=== PATIENT | male | born 1960 | race Caucasian/White ===

== ENCOUNTER 2023-04-13 12:39 | Outpatient (RCR) | payer OTHER, SELFPAY ==
[2023-04-13 14:21] VITALS: BP 111/70
[2023-04-13 14:38] VITALS: BP 98/61
[2023-04-13 16:38] VITALS: BP 106/60
[2023-04-27 14:47] LABS: % Basophils 0.4 % (0-2); % Eosinophils 0.4 % (0-6); % Immature Granulocytes 0.4 % (0-0.5); % Lymphocytes 8.1 % (20.5-51.1); % Monocytes 33.2 % (1.7-9.3); % Neutrophils 57.5 % (42.2-75.2); Absolute Lymphocytes 0.2 10^3/uL (1.2-3.4); Absolute Monocytes 0.8 10^3/uL (0.1-0.6); Absolute Neutrophils 1.4 10^3/uL (1.4-6.5); Hematocrit 23.5 % (39.0-52.0); Hemoglobin 8.4 g/dL (13.0-18.0); Mean Corp Hgb Conc. 35.7 g/dL (33.0-37.0); Mean Corpuscular Hgb 34.3 pg (27.0-31.0); Mean Corpuscular Volume 95.9 fL (80.0-94.0); Nucleated Red Blood Cells % 0 % (-); Platelet Count 91 10^3/uL (130-400); Red Blood Cell Count 2.45 10^6/uL (4.70-6.10); Red Cell Dist. Width 17.2 % (11.5-14.5); White Blood Cell Count 2.5 10^3/uL (4.8-10.8)
== END 2023-04-29 23:59 | disposition home or self-care (01) ==
LOC: OID 12:39
PROVIDERS: ATTENDING PHYSICIAN Internal Medicine Hematology & Oncology; FAMILY PHYSICIAN Family Medicine
DX: C15.5 Malignant neoplasm of lower third of esophagus (principal)
CPT/HCPCS: 36415; 36430; 80053; 82248; 85025; 86850; 86900; 86901; 86920; P9016

== ENCOUNTER 2023-04-23 16:12 | Emergency (ER) | payer OTHER, SELFPAY ==
[2023-04-23 16:24] VITALS: BMI 20.9
[2023-04-23 16:32] VITALS: BP 121/71
[2023-04-23 16:54] LABS: % Basophils 0.5 % (0-2); % Immature Granulocytes 0.5 % (0-0.5); % Lymphocytes 8.3 % (20.5-51.1); % Monocytes 16.1 % (1.7-9.3); % Neutrophils 73.6 % (42.2-75.2); Absolute Lymphocytes 0.2 10^3/uL (1.2-3.4); Absolute Monocytes 0.3 10^3/uL (0.1-0.6); Absolute Neutrophils 1.4 10^3/uL (1.4-6.5); Hematocrit 21.2 % (39.0-52.0); Hemoglobin 7.7 g/dL (13.0-18.0); Mean Corp Hgb Conc. 36.3 g/dL (33.0-37.0); Mean Corpuscular Hgb 33.8 pg (27.0-31.0); Mean Platelet Volume 9.6 fL (7.4-10.4); Nucleated Red Blood Cells % 0 % (-); Platelet Count 52 10^3/uL (130-400); Red Blood Cell Count 2.28 10^6/uL (4.70-6.10); Red Cell Dist. Width 15.7 % (11.5-14.5)
[2023-04-23 16:55] LABS: White Blood Cell Count 1.9 10^3/uL (4.8-10.8)
[2023-04-23 17:06] LABS: PT 13.4 Sec (11.4-14.6)
[2023-04-23 17:07] LABS: ALT (SGPT) 18 U/L (0-50); AST (SGOT) 23 U/L (17-59); Albumin 3.3 g/dl (3.5-5.0); Alkaline Phosphatase 74 U/L (38-126); Blood Urea Nitrogen 18 mg/dl (9-20); Calcium 9.2 mg/dl (8.4-10.2); Carbon Dioxide 24 mmol/L (22-30); Chloride 101 mmol/L (98-107); Estimated Creatinine Clearance 116 ml/min; Glucose 103 mg/dl (70-99); Potassium 3.5 mmol/L (3.5-5.1); Sodium 134 mmol/L (135-145); Total Bilirubin 0.5 mg/dl (0.2-1.3); Total Protein 6.2 g/dl (6.3-8.2); eGFR > 60.00
--- NOTE | 2023-04-23 17:14 | ED.GENMED ---
History of Present Illness
<Sharon Wasserman PA-C - Last Filed: 04/24/23 14:56>
General
Chief Complaint: Fall
Source: patient
Exam Limitations: none
Time Seen by Provider: 04/23/23 16:26
Nursing documentation reviewed up to this point in time: agreed with
Travel History
Have you had any contact with someone who has COVID-19?: No
Do you have any symptoms of coronavirus? Fever > 100 degrees, chills, cough, shortness of breath, sore throat, loss of taste or smell, muscle aches, or headache?: No
History of Present Illness
History of Present Illness:
This is 63-year-old male with a past medical history of esophageal cancer currently on chemo/radiation, DVT, hypertension who is presenting today with dizziness and head trauma. He describes the dizziness as a room spinning sensation and
presyncopal. He states that today, he felt nauseous and had to go to the bathroom to vomit when he felt dizzy which caused him to trip and hit the back of head on the cupboard. He did not lose consciousness, did not sustain any lacerations. He
does not have any associated shortness of breath, chest pain, leg pain/warmth, neck pain, headache. He states that he received a dose of chemo a few days ago and currently has had nausea, vomiting and dizziness. He states that he normally gets this
with his treatments however this time it has been worse and has persisted for many more days.
Past History
<Sharon Wasserman PA-C - Last Filed: 04/24/23 14:56>
Past History
ED Past Medical History: Cancer (esophageal cancer)
ED Past Surgical History: Orthopedic
Social History
Tobacco: Smoker
Alcohol: None
Drug: None
Personal:
Living: with family
Phy Exam
<Sharon Wasserman PA-C - Last Filed: 04/24/23 14:56>
Physical Exam
Physical Exam:
General: Patient appears ill but is in no acute distress
Skin: Some pallor however warm and dry, no rashes
HEENT: PERRLA, nystagmus. Small area of erythema at the occiput but no ecchymosis, no palpable hematomas.
Cardiac: Regular rate and rhythm, no murmurs
Pulm: Normal respiratory effort, no adventitious lung sounds b/l
Musculoskeletal: Patient seen spontaneously moving cervical spine, no midline tenderness of cervical spine. Patient is at low risk for C-spine injury via [place] C-spine rule.
Neuro: Alert and oriented x 3, cranial nerves II through XII intact, [id number] testing intact, tnlq-bo-[id number] testing intact.
Course
Ashleylt;Sharon Wasserman PA-C - Last Filed: 04/24/23 14:56>
Orders/Labs/Results
Orders:
Orders
04/23/23 16:42
Complete Blood Count/With Diff Urgent
Comprehensive Metabolic Panel Urgent
PTT Urgent
Prothrombin Time Urgent
04/23/23 17:15
CT Head W/o Iv Contrast Urgent
Comment:
Reason For Exam: head trauma on blood thinners
Ondansetron HCl [Zofran] 4 mg PO NOW STA
04/23/23 17:27
0.9% Sodium Chloride 1000 ml [Nss] 1,000 ml IV BOLUS
04/23/23 17:28
COVID-19 Antigen Urgent
Source: Nasal Swab
Influenza A+B Rapid Molecular Urgent
MERARI Source: Nasal Swab
Specimen Description:
04/23/23 19:57
Electrocardiogram (*1) Urgent
Reason for Study: Fatigue / Weakness
EKG- Treatment ONCE
Abnormal Lab Results
04/23/23
16:42
WBC 1.9 L* 10^3/uL
(4.8-10.8)
RBC 2.28 L 10^6/uL
(4.70-6.10)
Hgb 7.7 L g/dL
(13.0-18.0)
Hct 21.2 L %
(39.0-52.0)
MCH 33.8 H pg
(27.0-31.0)
RDW 15.7 H %
(11.5-14.5)
Plt Count 52 L 10^3/uL
(130-400)
Absolute Lymphs (auto) 0.2 L 10^3/uL
(1.2-3.4)
Lymphocytes % 8.3 L %
(20.5-51.1)
Monocytes % 16.1 H %
(1.7-9.3)
Sodium 134 L mmol/L
(135-145)
Creatinine 0.4 L mg/dL
(0.7-1.3)
Glucose 103 H mg/dl
(70-99)
Total Protein 6.2 L g/dl
(6.3-8.2)
Albumin 3.3 L g/dl
(3.5-5.0)
04/23/23 16:42
04/23/23 16:42
Vital Signs
Initial and Last Documented VS:
Initial Vital Signs
Temp Pulse Resp BP Pulse Ox
97.9 F 86 18 121/ 99
04/23/23 16:32 04/23/23 16:32 04/23/23 16:32 04/23/23 16:32 04/23/23 16:32
Last Documented Vital Signs
Temp Pulse Resp BP Pulse Ox
97.9 F 86 18 121/ 99
04/23/23 16:32 04/23/23 16:32 04/23/23 16:32 04/23/23 16:32 04/23/23 17:45
<Dale Fernandes DO - Last Filed: 04/23/23 21:56>
Orders/Labs/Results
Orders:
Orders
04/23/23 16:42
Complete Blood Count/With Diff Urgent
Comprehensive Metabolic Panel Urgent
PTT Urgent
Prothrombin Time Urgent
04/23/23 17:15
CT Head W/o Iv Contrast Urgent
Comment:
Reason For Exam: head trauma on blood thinners
Ondansetron HCl [Zofran] 4 mg PO NOW STA
04/23/23 17:27
0.9% Sodium Chloride 1000 ml [Nss] 1,000 ml IV BOLUS
04/23/23 17:28
COVID-19 Antigen Urgent
Source: Nasal Swab
Influenza A+B Rapid Molecular Urgent
MERARI Source: Nasal Swab
Specimen Description:
04/23/23 19:57
Electrocardiogram (*1) Urgent
Reason for Study: Fatigue / Weakness
EKG- Treatment ONCE
Abnormal Lab Results
04/23/23
16:42
WBC 1.9 L* 10^3/uL
(4.8-10.8)
RBC 2.28 L 10^6/uL
(4.70-6.10)
Hgb 7.7 L g/dL
(13.0-18.0)
Hct 21.2 L %
(39.0-52.0)
MCH 33.8 H pg
(27.0-31.0)
RDW 15.7 H %
(11.5-14.5)
Plt Count 52 L 10^3/uL
(130-400)
Absolute Lymphs (auto) 0.2 L 10^3/uL
(1.2-3.4)
Lymphocytes % 8.3 L %
(20.5-51.1)
Monocytes % 16.1 H %
(1.7-9.3)
Sodium 134 L mmol/L
(135-145)
Creatinine 0.4 L mg/dL
(0.7-1.3)
Glucose 103 H mg/dl
(70-99)
Total Protein 6.2 L g/dl
(6.3-8.2)
Albumin 3.3 L g/dl
(3.5-5.0)
04/23/23 16:42
04/23/23 16:42
Vital Signs
Initial and Last Documented VS:
Initial Vital Signs
Temp Pulse Resp BP Pulse Ox
97.9 F 86 18 121/71 99
04/23/23 16:32 04/23/23 16:32 04/23/23 16:32 04/23/23 16:32 04/23/23 16:32
Last Documented Vital Signs
Temp Pulse Resp BP Pulse Ox
97.9 F 86 18 121/71 99
04/23/23 16:32 04/23/23 16:32 04/23/23 16:32 04/23/23 16:32 04/23/23 17:45
<Sharon Wasserman PA-C - Last Filed: 04/24/23 14:56>
MDM/Problems Addressed
Differential Diagnosis Includes:
Differentials include chemo side effects, radiation side effects, acute dehydration, electrolyte derangement, influenza, COVID
MDM/Problems Addressed:
dizziness
head trauma
Chronic conditions affecting care: HTN, Cancer and Other (anticoagulated on eliquis )
Acute Exacerbation and/or Progression of Chronic Illness: Cancer
<Dale Fernandes DO - Last Filed: 04/23/23 21:56>
MDM/Problems Addressed
MDM/Problems Addressed:
dizziness, head trauma, thrombocytopenia, dehydration, weakness
<Sharon Wasserman PA-C - Last Filed: 04/24/23 14:56>
*Pulse Oximetry
Patient hypoxic: no
Data Reviewed
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
biopsy of esophageal mass in November 2022)
<Dale Fernandes DO - Last Filed: 04/23/23 21:56>
*Radiology
Radiology exam reviewed: preliminary read by ED provider (No obvious intracranial hemorrhage)
*EKG
Interpreted by ED Provider?: Yes
Interpretation: normal
Rate: normal
Rhythm: sinus
QRS Pattern: normal QRS
Ischemia: no ischemia
*Jewel Hole Gauger Interpretation
Rate: normal
Interpretation: normal
Rhythm: sinus
*Critical Care Note
Total Time (30-74mins, 75-104mins- exclusive of procedures): Not Applicable
Data Reviewed
Source: patient
Further Testing Considered But Not Given:
Consider blood cultures but no fever. No clinical suspicion for bacteremia
<Sharon Wasserman PA-C - Last Filed: 04/24/23 14:56>
Patient Management
Escalation/DeEscalation of care consider admission/obs:
This is a 63-year-old male with past medical history of esophageal and lung cancer currently receiving chemotherapy and radiation is presenting to emergency department today with an episode of head injury and dizziness. Patient states that with his
chemo treatments, he usually feels dizzy and nauseous but states that this dizziness has been worsening usually is. Patient was dizzy which caused him to trip and hit his head. CT scan of his head reveals no acute hemorrhage or other acute
abnormalities. His CBC significant for pancytopenia. His CMP is unremarkable. Started him on IV fluids and Zofran upon reevaluation, patient has had no additional episodes of dizziness and feels well. I suspect his symptoms are likely secondary
to his cancer, or chemo therapy/radiation side effects. He is stable for discharge, advised him to follow-up with his primary care provider his oncologist
<Sharon Wasserman PA-C - Last Filed: 04/24/23 14:56>
Update Note
Update Note:
4:45 pm--initially value patient, will start Zofran, fluids, obtain CT of the head
5:20 pm--received update from nursing he reports that patient had an additional episode of room spinning dizziness while here in emergency department
7:50 pm--upon reevaluation, patient reports that he feels well and has had not had any more episodes of dizziness.
ED Attending Note
<Sharon Wasserman PA-C - Last Filed: 04/24/23 14:56>
-
Portions of this chart may have been created with voice recognition software.� Occasional wrong word or��sound alike� substitutions may have occurred due to the inherent limitations of voice recognition software.
<Dale Fernandes DO - Last Filed: 04/23/23 21:56>
ED Attending Note
Patient seen and examined by attending physician: Yes
I performed the substantive portion of visit, reviewed & personally made and approve the management plan that is documented in note by myself or TENNILLE.: Yes
ED Attending Note:
63-year-old male with unfortunate Struve esophageal cancer who recently finished many doses of radiation as well as chemotherapy. His last chemo treatment about 1 week ago. Patient has been just weak and not feeling quite well which has been
similar to past chemo treatments. The patient states today he just felt continued weakness. He got up to go to the bathroom and felt lightheaded. He struck his head on the pocket door. He did fall to his knees but did not strike his head on the
ground. The patient's daughter heard him and felt he did not look well. They decided to bring him in for evaluation. He did call his home care nurse who advised him come for evaluation. Patient was a previous smoker. He denies fevers. He
states that he was not sure if he was getting a 'bug'. Exam: Abdomen soft, G-tube intact. Nonfocal neuroassessment. Assessment plan: IV fluids, check head CT check labs and reassess
Discharge Plan
Departure
Patient Disposition: Home (Routine Discharge)
Date of Disposition: 04/23/23
Time of Disposition: 21:56
Patient with high blood pressure during this ER visit?: No
Condition: Good
Discharge Problem:
Pancytopenia, Fall
Instructions: Head Injury in Adults (DC)
Prescriptions:
No Action
losartan 50 mg Tablet
50 mg PO DAILY
Patient Comments:
Pt holding due to hypotension
Eliquis 5 mg Tablet
5 mg PO BID
prochlorperazine maleate [Compazine] 10 mg Tablet
10 mg PO Q6H PRN (Reason: nausea)
Referrals:
Fredi Young MD [Family Provider] -
Activity Restrictions/Additional Instructions:
Please return to the emergency department should you develop, fevers or chills, chest pain, shortness of breath, abdominal pain, calf pain, or other concerning signs or symptoms.
Please follow up with your oncologist and your primary care provider.
Interventions
Interventions:
*Risk Screen - Suicide Last Done: 04/23/23 16:45
*General Assessment Last Done: 04/23/23 16:34
*Neglect/Abuse Screening Last Done: 04/23/23 16:34
*ED COVID-19 Vaccine History Last Done: 04/23/23 16:32
*Nursing Disposition Last Done: 04/23/23 23:38
ED-Musculoskeletal Assessment Last Done: 04/23/23 20:45
ED- Neurological Assessment Last Done: 04/23/23 16:45
ED-Skin Assessment Last Done: 04/23/23 17:05
Discharge Date and Time
Discharge Date/Time: 04/23/23 23:38
[2023-04-23] MEDS: ZOFRAN 4 MG PO (17:25)
[2023-04-23] MEDS: NSS 1000 IV (17:53)
[2023-04-23 17:54] LABS: COVID-19 Antigen Negative (Negative)
== END 2023-04-23 23:38 | disposition home or self-care (01) ==
LOC: EMR 16:12
PROVIDERS: Physician Assistant; EMERGENCY PHYSICIAN Emergency Medicine; FAMILY PHYSICIAN Family Medicine
DX: D61.818 Other pancytopenia (principal); F17.200 Nicotine dependence, unspecified, uncomplicated; W19.XXXA Unspecified fall, initial encounter; I10 Essential (primary) hypertension; Z79.01 Long term (current) use of anticoagulants
CPT/HCPCS: 99285; 96360; 70450; 80053; 85025; 85610; 85730; 87502; 87811; 93005

== ENCOUNTER 2023-05-01 11:31 | Outpatient (RCR) | payer OTHER, SELFPAY ==
[2023-05-01 09:45] LABS: Hematocrit 22.4 % (39.0-52.0); Hemoglobin 7.8 g/dL (13.0-18.0); Mean Corp Hgb Conc. 34.8 g/dL (33.0-37.0); Mean Corpuscular Hgb 34.5 pg (27.0-31.0); Mean Corpuscular Volume 99.1 fL (80.0-94.0); Mean Platelet Volume 9.8 fL (7.4-10.4); Platelet Count 98 10^3/uL (130-400); Red Blood Cell Count 2.26 10^6/uL (4.70-6.10); Red Cell Dist. Width 18.6 % (11.5-14.5); White Blood Cell Count 2.8 10^3/uL (4.8-10.8)
[2023-05-01 10:38] LABS: Absolute Neutrophils -Man Diff 2.1 10^3/uL (1.4-6.5); Band Neutrophils 3 % (0-3); Lymphocytes 6 % (20-51); Segmented Neutrophils 72 % (42-75)
[2023-05-01 10:39] LABS: Anisocytosis 1+; Eosinophils 1 % (0-6); Hypochromasia Slight; Metamyelocytes 2 % (-); Monocytes 16 % (2-9); Normal RBC Morphology No; Platelets Checked Yes; Polychromasia 1+; Total Cells Counted 100
== END 2023-05-28 23:59 | disposition home or self-care (01) ==
LOC: OID 11:31
PROVIDERS: ATTENDING PHYSICIAN Internal Medicine Hematology & Oncology; FAMILY PHYSICIAN Family Medicine
DX: C15.5 Malignant neoplasm of lower third of esophagus (principal); C34.11 Malignant neoplasm of upper lobe, right bronchus or lung; D75.1 Secondary polycythemia; Z72.0 Tobacco use
CPT/HCPCS: 85025

== ENCOUNTER → 2023-05-04 14:10 | Outpatient (REF) | payer OTHER, SELFPAY ==
[2023-05-04 15:32] LABS: % Basophils 0.2 % (0-2); % Eosinophils 0.9 % (0-6); % Immature Granulocytes 1.6 % (0-0.5); % Lymphocytes 8.7 % (20.5-51.1); % Monocytes 16.5 % (1.7-9.3); % Neutrophils 72.1 % (42.2-75.2); Absolute Immature Granulocytes 0.1 10^3/uL (0-0.05); Absolute Lymphocytes 0.4 10^3/uL (1.2-3.4); Absolute Monocytes 0.7 10^3/uL (0.1-0.6); Absolute Neutrophils 3.2 10^3/uL (1.4-6.5); Hematocrit 22.2 % (39.0-52.0); Hemoglobin 7.9 g/dL (13.0-18.0); Mean Corp Hgb Conc. 35.6 g/dL (33.0-37.0); Mean Corpuscular Hgb 35.3 pg (27.0-31.0); Mean Corpuscular Volume 99.1 fL (80.0-94.0); Mean Platelet Volume 9.9 fL (7.4-10.4); Nucleated Red Blood Cells % 0 % (-); Platelet Count 106 10^3/uL (130-400); Red Blood Cell Count 2.24 10^6/uL (4.70-6.10); Red Cell Dist. Width 19.5 % (11.5-14.5); White Blood Cell Count 4.5 10^3/uL (4.8-10.8)
== END ==
LOC: OIDL 14:10
PROVIDERS: ATTENDING PHYSICIAN Internal Medicine Hematology & Oncology
DX: C15.5 Malignant neoplasm of lower third of esophagus (principal); I82.401 Acute embolism and thrombosis of unspecified deep veins of right lower extremity; D75.1 Secondary polycythemia; D69.6 Thrombocytopenia, unspecified
CPT/HCPCS: 85025

== ENCOUNTER → 2023-05-13 14:07 | Outpatient (REF) | payer OTHER, SELFPAY ==
[2023-05-13 15:03] LABS: % Basophils 0.5 % (0-2); % Eosinophils 1.8 % (0-6); % Immature Granulocytes 0.5 % (0-0.5); % Lymphocytes 14.1 % (20.5-51.1); % Monocytes 15.5 % (1.7-9.3); % Neutrophils 67.6 % (42.2-75.2); Absolute Eosinophils 0.1 10^3/uL (0-0.7); Absolute Lymphocytes 0.6 10^3/uL (1.2-3.4); Absolute Monocytes 0.7 10^3/uL (0.1-0.6); Hemoglobin 8.4 g/dL (13.0-18.0); Mean Corpuscular Hgb 35.9 pg (27.0-31.0); Mean Corpuscular Volume 102.6 fL (80.0-94.0); Mean Platelet Volume 9.6 fL (7.4-10.4); Nucleated Red Blood Cells % 0 % (-); Platelet Count 95 10^3/uL (130-400); Red Blood Cell Count 2.34 10^6/uL (4.70-6.10); Red Cell Dist. Width 20.8 % (11.5-14.5); White Blood Cell Count 4.4 10^3/uL (4.8-10.8)
== END ==
LOC: REG 14:07
PROVIDERS: ATTENDING PHYSICIAN Internal Medicine Hematology & Oncology; FAMILY PHYSICIAN Family Medicine
DX: C15.5 Malignant neoplasm of lower third of esophagus (principal); I82.401 Acute embolism and thrombosis of unspecified deep veins of right lower extremity; D75.1 Secondary polycythemia; D69.6 Thrombocytopenia, unspecified
CPT/HCPCS: 36415; 85025

== ENCOUNTER → 2023-05-14 14:19 | Outpatient (REF) | payer OTHER, SELFPAY | LOC: RAD 14:19 | PROVIDERS: ATTENDING PHYSICIAN Nurse Practitioner Adult Health; FAMILY PHYSICIAN Family Medicine | DX: C15.5 Malignant neoplasm of lower third of esophagus (principal); I82.401 Acute embolism and thrombosis of unspecified deep veins of right lower extremity; D75.1 Secondary polycythemia; D69.6 Thrombocytopenia, unspecified | CPT/HCPCS: 71260; 74177; Q9967 ==

== ENCOUNTER → 2023-07-21 13:41 | Outpatient (REF) | payer OTHER, SELFPAY ==
[2023-07-21 16:15] LABS: % Basophils 0.3 % (0-2); % Immature Granulocytes 0.1 % (0-0.5); % Monocytes 9.7 % (1.7-9.3); % Neutrophils 79.9 % (42.2-75.2); Absolute Eosinophils 0.1 10^3/uL (0-0.7); Absolute Lymphocytes 0.6 10^3/uL (1.2-3.4); Absolute Monocytes 0.7 10^3/uL (0.1-0.6); Absolute Neutrophils 5.4 10^3/uL (1.4-6.5); Hematocrit 35.3 % (39.0-52.0); Hemoglobin 11.8 g/dL (13.0-18.0); Mean Corp Hgb Conc. 33.4 g/dL (33.0-37.0); Mean Corpuscular Hgb 36.5 pg (27.0-31.0); Mean Corpuscular Volume 109.3 fL (80.0-94.0); Mean Platelet Volume 9.6 fL (7.4-10.4); Nucleated Red Blood Cells % 0 % (-); Platelet Count 91 10^3/uL (130-400); Red Blood Cell Count 3.23 10^6/uL (4.70-6.10); Red Cell Dist. Width 13.1 % (11.5-14.5); White Blood Cell Count 6.8 10^3/uL (4.8-10.8)
[2023-07-21 16:32] LABS: ALT (SGPT) 20 U/L (0-50); AST (SGOT) 29 U/L (17-59); Albumin 4.4 g/dl (3.5-5.0); Alkaline Phosphatase 95 U/L (38-126); Blood Urea Nitrogen 21 mg/dl (9-20); Calcium 9.9 mg/dl (8.4-10.2); Carbon Dioxide 26 mmol/L (22-30); Chloride 102 mmol/L (98-107); Glucose 96 mg/dl (70-99); Iron 117 ug/dl (49-181); Potassium 4.1 mmol/L (3.5-5.1); Sodium 136 mmol/L (135-145); Total Bilirubin 0.4 mg/dl (0.2-1.3); Total Protein 7.7 g/dl (6.3-8.2); eGFR > 60.00
[2023-07-21 16:42] LABS: Percent Saturation 35 % (20-50); Total Iron Binding Capacity 334 ug/dl (261-462)
[2023-07-21 17:01] LABS: TSH 1.35 uIU/ml (0.47-4.68)
[2023-07-21 17:36] LABS: Folate 17.8 ng/ml (2.76-20); Vitamin B12 256 pg/ml (239-931)
== END ==
LOC: REG 13:41
PROVIDERS: ATTENDING PHYSICIAN Internal Medicine Hematology & Oncology; FAMILY PHYSICIAN Family Medicine
DX: C15.5 Malignant neoplasm of lower third of esophagus (principal); I82.401 Acute embolism and thrombosis of unspecified deep veins of right lower extremity; D75.1 Secondary polycythemia; D69.6 Thrombocytopenia, unspecified; R53.83 Other fatigue
CPT/HCPCS: 36415; 80053; 82607; 82728; 82746; 83540; 83550; 84443; 85025

== ENCOUNTER 2023-08-14 06:04 | Day surgery (SDC) | payer OTHER, SELFPAY ==
[2023-08-14] VITALS (8 sets, daily range): BP systolic 104–128; BP diastolic 66–85; BMI 21.6
[2023-08-14] MEDS: NORMOSOL-R 1000 IV (12:05)
[2023-08-14 12:11] LABS: INR 0.99; PT 12.9 Sec (11.4-14.6)
[2023-08-14 12:12] LABS: APTT 28.4 Sec (23.4-35.0)
--- NOTE | 2023-08-14 15:04 | VATNOTE ---
Left SQ port flushed with 500 units of heparin and deaccessed
== END 2023-08-14 15:25 | disposition home or self-care (01) ==
LOC: SDS 06:04
PROVIDERS: ATTENDING PHYSICIAN Surgery
DX: N28.89 Other specified disorders of kidney and ureter (principal); Z98.890 Other specified postprocedural states; Z85.01 Personal history of malignant neoplasm of esophagus; Z92.3 Personal history of irradiation; Z92.21 Personal history of antineoplastic chemotherapy
CPT/HCPCS: 52351; 52332; 74420; 76000; 85610; 85730; A4300; C1769; C1894

== ENCOUNTER 2023-08-27 09:48 | Outpatient (RCR) | payer OTHER, SELFPAY | END 2023-08-27 23:59 | disposition home or self-care (01) | LOC: RPT 09:48 | PROVIDERS: ATTENDING PHYSICIAN Internal Medicine Hematology & Oncology; FAMILY PHYSICIAN Family Medicine | DX: C15.9 Malignant neoplasm of esophagus, unspecified (principal); M62.81 Muscle weakness (generalized); R26.81 Unsteadiness on feet; R53.0 Neoplastic (malignant) related fatigue | CPT/HCPCS: 97110; 97112; 97163; 97530; 97535 ==

== ENCOUNTER → 2023-08-31 14:07 | Outpatient (REF) | payer OTHER, SELFPAY | LOC: RAD 14:07 | PROVIDERS: ATTENDING PHYSICIAN Surgery; FAMILY PHYSICIAN Family Medicine | DX: N28.89 Other specified disorders of kidney and ureter (principal) | CPT/HCPCS: 74178; Q9967 ==

== ENCOUNTER → 2023-09-16 07:45 | Outpatient (REF) | payer OTHER, SELFPAY | LOC: PET 07:45 | PROVIDERS: ATTENDING PHYSICIAN Internal Medicine Hematology & Oncology | DX: C15.5 Malignant neoplasm of lower third of esophagus (principal) | CPT/HCPCS: 78815; A9552 ==

== ENCOUNTER 2023-09-17 12:08 | Outpatient (RCR) | payer OTHER, SELFPAY | END 2023-09-17 23:59 | disposition home or self-care (01) | LOC: RPT 12:08 | PROVIDERS: ATTENDING PHYSICIAN Internal Medicine Hematology & Oncology; FAMILY PHYSICIAN Family Medicine | DX: M62.81 Muscle weakness (generalized) (principal); C15.9 Malignant neoplasm of esophagus, unspecified; R26.81 Unsteadiness on feet; R53.0 Neoplastic (malignant) related fatigue | CPT/HCPCS: 97110; 97112; 97530 ==

== ENCOUNTER → 2023-10-06 07:29 | Outpatient (REF) | payer OTHER, SELFPAY | LOC: MRI 07:29 | PROVIDERS: ATTENDING PHYSICIAN Internal Medicine Hematology & Oncology; FAMILY PHYSICIAN Family Medicine | DX: C15.9 Malignant neoplasm of esophagus, unspecified (principal) | CPT/HCPCS: 72157; A9575 ==

== ENCOUNTER → 2023-12-16 07:52 | Outpatient (REF) | payer OTHER, SELFPAY | LOC: PET 07:52 | PROVIDERS: ATTENDING PHYSICIAN Internal Medicine Hematology & Oncology | DX: C15.5 Malignant neoplasm of lower third of esophagus (principal) | CPT/HCPCS: 78815; A9552 ==

== ENCOUNTER 2024-02-04 09:56 | Outpatient (RCR) | payer OTHER, SELFPAY ==
[2024-02-04 10:20] VITALS: BP 118/68
[2024-02-04 10:39] VITALS: BP 118/68
[2024-02-04 11:06] VITALS: BP 110/69
[2024-02-04 12:06] VITALS: BP 128/70
== END 2024-02-27 23:59 | disposition home or self-care (01) ==
LOC: OID 09:56
PROVIDERS: ATTENDING PHYSICIAN Internal Medicine Hematology & Oncology; FAMILY PHYSICIAN Family Medicine
DX: C15.5 Malignant neoplasm of lower third of esophagus (principal); D75.1 Secondary polycythemia; F10.90 Alcohol use, unspecified, uncomplicated; Z72.0 Tobacco use
CPT/HCPCS: 36430; P9073

== ENCOUNTER → 2024-03-01 09:18 | Outpatient (REF) | payer OTHER, SELFPAY ==
[2024-03-01 09:39] VITALS: BP 121/80; BP_SYST 65
[2024-03-01 09:47] LABS: % Basophils 0.2 % (0-2); % Eosinophils 0.5 % (0-6); % Immature Granulocytes 0.7 % (0-0.5); % Lymphocytes 10.4 % (20.5-51.1); % Monocytes 14.7 % (1.7-9.3); % Neutrophils 73.5 % (42.2-75.2); Absolute Lymphocytes 0.4 10^3/uL (1.2-3.4); Absolute Monocytes 0.6 10^3/uL (0.1-0.6); Absolute Neutrophils 3.1 10^3/uL (1.4-6.5); Hematocrit 29.1 % (39.0-52.0); Hemoglobin 9.2 g/dL (13.0-18.0); Mean Corp Hgb Conc. 31.6 g/dL (33.0-37.0); Mean Corpuscular Hgb 34.2 pg (27.0-31.0); Mean Corpuscular Volume 108.2 fL (80.0-94.0); Mean Platelet Volume 8.9 fL (7.4-10.4); Nucleated Red Blood Cells % 0 % (-); Platelet Count 166 10^3/uL (130-400); Red Blood Cell Count 2.69 10^6/uL (4.70-6.10); Red Cell Dist. Width 18.8 % (11.5-14.5); White Blood Cell Count 4.2 10^3/uL (4.8-10.8)
[2024-03-01 09:52] LABS: INR 0.96; PT 13.1 Sec (11.4-14.6)
[2024-03-01] MEDS: NSS (PRESERVATIVE FREE) 0.25 ML IV (10:10)
[2024-03-01] MEDS: ATIVAN 0.5 MG IV (10:11)
[2024-03-01 11:20] VITALS: BP 121/80; BP_SYST 72
[2024-03-01 11:25] VITALS: BP 124/86; BP_SYST 73
[2024-03-01 11:30] VITALS: BP 115/83; BP_SYST 68
== END ==
LOC: RADI 09:18
PROVIDERS: Physician Assistant; ATTENDING PHYSICIAN Nurse Practitioner Acute Care
DX: D75.1 Secondary polycythemia (principal)
CPT/HCPCS: 88305; 88311; 88312; 36415; 38222; 77012; 85025; 85610; 88313

== ENCOUNTER → 2024-03-08 11:26 | Outpatient (REF) | payer OTHER, SELFPAY ==
[2024-03-08 12:33] LABS: % Basophils 0.4 % (0-2); % Eosinophils 0.9 % (0-6); % Immature Granulocytes 0.7 % (0-0.5); % Monocytes 14.6 % (1.7-9.3); % Neutrophils 74.4 % (42.2-75.2); Absolute Eosinophils 0.1 10^3/uL (0-0.7); Absolute Lymphocytes 0.5 10^3/uL (1.2-3.4); Absolute Monocytes 0.8 10^3/uL (0.1-0.6); Absolute Neutrophils 4.2 10^3/uL (1.4-6.5); Hematocrit 28.2 % (39.0-52.0); Hemoglobin 9.5 g/dL (13.0-18.0); Mean Corp Hgb Conc. 33.7 g/dL (33.0-37.0); Mean Corpuscular Hgb 34.8 pg (27.0-31.0); Mean Corpuscular Volume 103.3 fL (80.0-94.0); Mean Platelet Volume 8.8 fL (7.4-10.4); Nucleated Red Blood Cells % 0 % (-); Platelet Count 183 10^3/uL (130-400); Red Blood Cell Count 2.73 10^6/uL (4.70-6.10); White Blood Cell Count 5.7 10^3/uL (4.8-10.8)
== END ==
LOC: REG 11:26
PROVIDERS: ATTENDING PHYSICIAN Internal Medicine Hematology & Oncology; FAMILY PHYSICIAN Family Medicine
DX: C15.5 Malignant neoplasm of lower third of esophagus (principal); I82.401 Acute embolism and thrombosis of unspecified deep veins of right lower extremity; D75.1 Secondary polycythemia; D69.6 Thrombocytopenia, unspecified; R53.83 Other fatigue; D51.9 Vitamin B12 deficiency anemia, unspecified; D61.818 Other pancytopenia
CPT/HCPCS: 36415; 85025

== ENCOUNTER → 2024-03-14 13:39 | Outpatient (REF) | payer OTHER, SELFPAY | LOC: RCS 13:39 | PROVIDERS: ATTENDING PHYSICIAN Internal Medicine Cardiovascular Disease; FAMILY PHYSICIAN Family Medicine | DX: R07.89 Other chest pain (principal); R06.02 Shortness of breath | CPT/HCPCS: 93306 ==

== ENCOUNTER → 2024-04-14 12:32 | Outpatient (REF) | payer OTHER, SELFPAY | LOC: RAD 12:32 | PROVIDERS: ATTENDING PHYSICIAN Nurse Practitioner Family; FAMILY PHYSICIAN Family Medicine | DX: M75.42 Impingement syndrome of left shoulder (principal); M25.512 Pain in left shoulder | CPT/HCPCS: 73030 ==

== ENCOUNTER 2024-05-30 18:27 | Inpatient (IN) | payer OTHER, SELFPAY ==
[2024-05-30] VITALS (10 sets, daily range): BP systolic 123–152; BP diastolic 75–89; BMI 19.1
--- NOTE | 2024-05-30 12:39 | EDRN ---
Karli ROSALES in room w/ ED Resident at this time.
[2024-05-30] MEDS: OMNIPAQUE 100 ML PO (13:04)
[2024-05-30] MEDS: NSS 500 IV (13:25)
[2024-05-30 13:42] LABS: % Basophils 0.3 % (0-2); % Eosinophils 0.5 % (0-6); % Immature Granulocytes 0.5 % (0-0.5); % Lymphocytes 4.6 % (20.5-51.1); % Monocytes 8.8 % (1.7-9.3); % Neutrophils 85.3 % (42.2-75.2); Absolute Lymphocytes 0.4 10^3/uL (1.2-3.4); Absolute Monocytes 0.7 10^3/uL (0.1-0.6); Absolute Neutrophils 6.5 10^3/uL (1.4-6.5); Hematocrit 34.1 % (39.0-52.0); Mean Corp Hgb Conc. 32.3 g/dL (33.0-37.0); Mean Corpuscular Hgb 29.6 pg (27.0-31.0); Mean Corpuscular Volume 91.7 fL (80.0-94.0); Mean Platelet Volume 8.9 fL (7.4-10.4); Nucleated Red Blood Cells % 0 % (-); Platelet Count 151 10^3/uL (130-400); Red Blood Cell Count 3.72 10^6/uL (4.70-6.10); Red Cell Dist. Width 14.9 % (11.5-14.5); White Blood Cell Count 7.7 10^3/uL (4.8-10.8)
[2024-05-30 13:59] LABS: ALT (SGPT) 12 U/L (0-50); AST (SGOT) 17 U/L (17-59); Albumin 3.7 g/dl (3.5-5.0); Alkaline Phosphatase 135 U/L (38-126); Blood Urea Nitrogen 22 mg/dl (9-20); Calcium 9.5 mg/dl (8.4-10.2); Carbon Dioxide 29 mmol/L (22-30); Chloride 97 mmol/L (98-107); Estimated Creatinine Clearance 72 ml/min; Glucose 116 mg/dl (70-99); Lipase 31 U/L (23-300); Sodium 134 mmol/L (135-145); Total Bilirubin 0.6 mg/dl (0.2-1.3); Total Protein 7.5 g/dl (6.3-8.2); eGFR > 60.00
--- NOTE | 2024-05-30 14:09 | EDRN ---
Pt asking for pain medication at this time.
[2024-05-30] MEDS: PERCOCET 5/325 2 TABLET PO (14:47)
--- NOTE | 2024-05-30 14:48 | EDRN ---
Pt medicated for his pain w/ 2 percocet at this time.
--- NOTE | 2024-05-30 15:05 | EDRN ---
Pt only able to tolerate 1.5 cups of oral contrast at this time. emission technician called and informed of this.
--- NOTE | 2024-05-30 16:11 | ED.GENMED ---
History of Present Illness
General
Chief Complaint: Bowel Problem
Source: patient
Exam Limitations: none
Time Seen by Provider: 05/30/24 12:18
History of Present Illness
History of Present Illness:
64yoM with a history of metastatic esophageal cancer presenting for evaluation of constipation. Patient recently completed radiation on his left clavicle at [facility]. He reports issues with constipation over the past several weeks. He had a 'baby
poop' 4 days ago but prior to this has not had a normal bowel movement in several weeks. He was seen at palliative care who recommended magnesium citrate and Dulcolax which did not help. He has also been using fleets enemas without any
improvement. Patient reports pain in his left upper quadrant with early satiety. He is not eating much due to his symptoms and feels dehydrated. Additionally, he reports shortness of breath and feels congested in his lung primarily at nighttime.
He denies any fevers or vomiting. Of note, patient takes opioids for his cancer-related pain.
Past History
Past History
ED Past Medical History: Cancer (esophageal cancer)
ED Past Surgical History: Orthopedic
Social History
Tobacco: Smoker
Alcohol: None
Drug: None
Personal:
Living: with family
Phy Exam
Physical Exam
Physical Exam:
Chronically ill appearing, no acute distress
General Physical Exam
General Presentation: no apparent distress
General Skin: warm and dry
General Habitus: normal
General Mental: alert
ENT Exam
ENT Exam: normocephalic
Pulmonary Exam
Pulmonary Exam: no respiratory distress and decreased breath sounds (L lower lung base)
Gastrointestinal Exam
Gastrointestinal Exam: soft, non distended and other (Mild tenderness in LUQ. Abdomen soft, non-distended. No rebound or guarding. )
Neurological Exam
Neurological Exam: alert
Lelia Coma Scale
Eye Opening: Spontaneous
Verbal Response: Oriented
Motor Response: Obeys Commands
GCS Total Score: 15
Skin Exam
Skin Exam: normal color and warm/dry
Psychiatric Exam
Psychiatric Exam: normal mood/affect
Course
Orders/Labs/Results
Orders:
Orders
05/30/24 Lunch
Regular
At Your Request: Full Participation
Does patient need a safe tray?: No
05/30/24 12:42
0.9% Sodium Chloride 500 ml [Nss] 500 ml IV BOLUS
Iohexol [Omnipaque] See Protocol PO NOW STA
05/30/24 12:43
CT Abd/pel W Iv And Oral Contr Urgent
Comment:
Reason For Exam: LUQ pain, constipation
05/30/24 13:24
Complete Blood Count/With Diff Urgent
Comprehensive Metabolic Panel Urgent
Lipase Urgent
05/30/24 14:12
Oxycodone/Acetaminophen [Percocet 5/325] 2 tablet PO NOW STA
05/30/24 16:07
Urinalysis Reflex To Culture Urgent
CR Chest - 2 Views Urgent
Comment:
Reason For Exam: pleural effusion seen on CXR
05/30/24 16:58
Enema- Treatment ONCE
Type: Milk of Molasses
05/30/24 17:31
Admit/Transfer Patient As Directed
Co-Sign Provider:
Level of Care: Inpatient admission
Assign to:: Medical/Surgical
Physician / Group: Hospitalist
Diagnosis: SOB/Abdominal pain
Reason for Hospitalization: .
Expected length of stay greater than two midnights?: Yes
ELOS- Estimated Length of Stay in days: 3
I certify the patient meets the requirements for IP care: Yes
05/30/24 17:32
PRN Pain Medication Management As Directed
May give lesser potent ordered pain med per pt: Yes
preference::
Protocol:: Medication orders for pain may be administered in a
manner that supports deferring to patient preference
when the pt is:
- Requesting an ordered lesser potent pain medication.
Least to most potent pain medications are defined
as: acetaminophen < NSAID < tramadol < opioids
(morphine, oxycodone, hydromorphone).
- Requesting a lesser dose of the same medication IF
ORDERED.
- Requesting a less intrusive route of administration
if both routes are prescribed by the provider (PO <
IV).
05/30/24 17:33
Code Status As Directed
Resuscitation Status: Full Code
Abnormal Lab Results
05/30/24
13:24
RBC 3.72 L 10^6/uL
(4.70-6.10)
Hgb 11.0 L g/dL
(13.0-18.0)
Hct 34.1 L %
(39.0-52.0)
MCHC 32.3 L g/dL
(33.0-37.0)
RDW 14.9 H %
(11.5-14.5)
Absolute Lymphs (auto) 0.4 L 10^3/uL
(1.2-3.4)
Absolute Monos (auto) 0.7 H 10^3/uL
(0.1-0.6)
Neutrophils % 85.3 H %
(42.2-75.2)
Lymphocytes % 4.6 L %
(20.5-51.1)
Sodium 134 L mmol/L
(135-145)
Chloride 97 L mmol/L
(98-107)
BUN 22 H mg/dl
(9-20)
Glucose 116 H mg/dl
(70-99)
Alkaline Phosphatase 135 H U/L
(38-126)
05/30/24 13:24
05/30/24 13:24
Vital Signs
Initial and Last Documented VS:
Initial Vital Signs
Temp Pulse Resp BP Pulse Ox
98.0 F 104 16 131/89 98
05/30/24 12:01 05/30/24 12:01 05/30/24 12:01 05/30/24 12:01 05/30/24 12:01
Last Documented Vital Signs
Temp Pulse Resp BP Pulse Ox
98.0 F 79 16 135/81 97
05/30/24 12:01 05/30/24 17:00 05/30/24 17:00 05/30/24 17:00 05/30/24 17:00
MDM/Problems Addressed
Differential Diagnosis Includes:
64yoM here with constipation, abd pain, and early satiety. Hx of metastatic esophageal cancer. VSS. He is chronically ill appearing in no distress. There is mild LUQ tenderness without signs of peritonitis. Differential diagnosis includes but is not
limited to: opioid induced constipation, SBO, diverticulitis
Initial ED plan: Check abdominal labs and CT abdomen with IV/PO contrast.
*Critical Care Note
Total Time (30-74mins, 75-104mins- exclusive of procedures): Not Applicable
Update Note
Update Note:
CT shows a new moderate to large L pleural effusion. There is also severe R hydronephrosis with an enhancing mass at the junction of the R renal pelvis and ureter. Patient previously had a ureteral stent placed for similar issues by Dr. Swanson.
Renal function is fortunately normal. Moderate-severe constipation noted and milk of molasses enema ordered. Patient admitted for further management.
ED Attending Note
-
Portions of this chart may have been created with voice recognition software.� Occasional wrong word or��sound alike� substitutions may have occurred due to the inherent limitations of voice recognition software.
Discharge Plan
Departure
Patient Disposition: Admit
Date of Disposition: 05/30/24
Time of Disposition: 16:47
Presentation/result/management discussed w/ accepting MD/DO: Hospitalist
Discharge Problem:
Hydronephrosis of right kidney, Pleural effusion on left, Constipation
Prescriptions:
No Action
tamsulosin [Flomax] 0.4 mg Capsule
0.4 mg PO HS
Theragen Tablet
1 tab PO DAILY
morphine 15 mg Tablet Extended Release
15 mg PO Q12H
oxycodone 10 mg Tablet
10 mg PO Q6H
Eliquis 2.5 mg Tablet
2.5 mg PO BID
bisacodyl [Laxative (bisacodyl)] 10 mg Suppository
10 mg LA DAILYPRN PRN (Reason: constipation)
docusate sodium [Stool Softener] 100 mg Capsule
100 mg PO DAILYPRN PRN (Reason: constipation)
Referrals:
Fredi Young MD [Family Provider] -
Interventions
Interventions:
*Risk Screen - Suicide Last Done: 05/30/24 13:10
*General Assessment Last Done: 05/30/24 13:10
*Neglect/Abuse Screening Last Done: 05/30/24 13:10
ED- Fall Risk Assessment Last Done: 05/30/24 13:11
*ED COVID-19 Vaccine History Last Done: 05/30/24 13:10
RQ-Erjlhw-Lanoptfeae Assessment Last Done: 05/30/24 13:16
Discharge Date and Time
Print Language: LATVIAN
--- NOTE | 2024-05-30 16:56 | HPS.HSE ---
Family Physician
-
Family Physician: Fredi Young
Chief Complaint
-
Constipation for a few days duration with loss of appetite and exertional shortness of breath
History of Present Illness
64 years old male presented from home. Patient was having constipation and had palliative care visit was given magnesium citrate. He took 1 bottle in divided doses with small bowel movements but no relief. Patient reports abdominal discomfort
mostly upper part and preventing him from eating although he feels hungry most of the time. No nausea or vomiting. No fever. He also reported exertional shortness of breath. Denies difficulty passing urine or chest pain.
Medical History
Past Medical History
Past Medical History: Reports Other (Lung cancer, esophageal cancer, hypertension, BPH, history of DVT.)
Past Surgical History: Reports Other (No recent major surgery)
Social History
Tobacco: Non-smoker
Alcohol: None
Drug: None
Personal: Single
Living: Alone
Employment: Disabled
Family History
Family History: Not pertinent
Allergies / Home Medications
Allergies reflects when Allergies were last updated in [facility].
Home Medications with original date entered in [facility]
Allergy/Medication List:
Allergies
Allergy/AdvReac Type Severity Reaction Status Date / Time
No Known Allergies Allergy Verified 05/30/24 12:03
Home Medications
tamsulosin 0.4 mg capsule (Flomax) 0.4 mg PO HS 02/04/24
apixaban 2.5 mg tablet (Eliquis) 2.5 mg PO BID 05/30/24
bisacodyl 10 mg rectal suppository (Laxative (bisacodyl)) 10 mg ND DAILYPRN PRN constipation 05/30/24
docusate sodium 100 mg capsule (Stool Softener) 100 mg PO DAILYPRN PRN constipation 05/30/24
morphine 15 mg tablet,extended release 15 mg PO Q12H 05/30/24
oxycodone 10 mg tablet 10 mg PO Q6H 05/30/24
therapeutic multivitamin 1 tab PO DAILY 05/30/24
Review of Systems
-
History Source: Patient
A 12 point ROS was completed and negative except as noted: Yes
Constitutional: Denies Fever or Chills
EENT: Denies Sore Throat or Runny Nose
Respiratory: Reports Trouble Breathing (Upon exertion); Denies Cough
Cardiac: Denies Chest Pain
Abdomen/GI: Reports Abdominal Pain and Constipated
: Denies Dysuria or Difficulty Voiding
Musculoskeletal: Reports Other (Left clavicular pain); Denies Joint Pain
Skin: Denies Itching
Neurological: Denies Weakness
Endocrine: Denies Temp Intolerance
Hematologic/Lymphatic: Denies Bruising
Psych: Denies Panic Disorder
Physical Exam
Vital Signs
Vital Signs
Temp Pulse Resp BP Pulse Ox
98.0 F 82 16 152/84 98
05/30/24 12:01 05/30/24 15:05 05/30/24 15:05 05/30/24 15:05 05/30/24 15:05
Physical Exam
General: No Apparent Distress and Appears Chronically Ill
HEENT: Anicteric and Moist mucous membranes
Respiratory: Decreased Breath Sounds; No Wheezes
Cardiac: S1/S2 and Regular Rhythm
GI: Soft and Non Distended
Rectal: No Maroon Stools
Genito-urinary: No costovertebral tender
Musculoskeletal: No Cyanosis and No Edema
Skin: No Jaundice
Neuro: AO x 3 and Nonfocal/grossly intact
Psych: Calm and Intact Judgment/Insight
Laboratory Results
-
05/30/24 13:24
05/30/24 13:24
Laboratory Results
Total Bilirubin 0.6 mg/dl (0.2-1.3) 05/30/24 13:24
AST 17 U/L (17-59) 05/30/24 13:24
ALT 12 U/L (0-50) 05/30/24 13:24
Alkaline Phosphatase 135 U/L (38-126) H 05/30/24 13:24
Lipase 31 U/L (23-300) 05/30/24 13:24
Impression/Plan
-
64 years old male presented with constipation and exertional shortness of breath
#Constipation, likely induced by narcotic use.
Patient took small dose magnesium citrate Dulcolax and had small bowel movements.
Abdomen is soft and nondistended. Local tenderness and left upper quadrant mainly. No fever. No leukocytosis.
Will start the patient on IV fluid, hoping good hydration will help with constipation.
Will give patient magnesium citrate and Dulcolax again and monitor.
CAT scan showed moderate to large amount of stool within the colon, suggesting constipation, including stool within the splenic flexure just underneath the left hemidiaphragm.Rectum is distended with air, no signs of sterile coral colitis.
Consult GI.
# Severe right hydronephrosis with enhancing mass at the junction of right renal pelvis and proximal ureter.
Patient reported that last PET scan in March 2024 showed active spot in the pelvis. This could be related to the mass.
No renal insufficiency.
Patient has history of BPH, had history of ureteral stent.
Initial discussion with on-call urologist, no plan for stent insertion as long as kidney function is normal. Okay to continue Eliquis.
Appreciate urology input
# Moderate to large left pleural effusion. This could be related to the ongoing exertional dyspnea.
Will consult IR for thoracentesis. Patient currently is not hypoxic. Does not have fever or leukocytosis. Highly suspicious for malignant effusion
Appreciate pulmonary input.
# History of esophageal cancer/lung cancer with bony metastases.
Patient has oncology team at [facility] and Dr. Cormier. Appreciate oncology input. Pelvic mass seems to be a new finding or progression. Will follow-up with oncology.
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 Left clavicular pain is more significant/getting radiation locally. Recently started on morphine per palliative care, he was on oxycodone before that.
Will do IV pain medicine to better control his pain.
# hyponatremia. Mild. No confusion.
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 Continue with Eliquis for now.
# CODE STATUS, full code
Total time spent to see the patient, examine the patient, review data and lab results, discuss treatment plan with patient, ER doctor, consultants and nursing staff around 75 minutes
--- NOTE | 2024-05-30 16:59 | EDRN ---
Kalri Olson PA in to speak w/ pt and told this RN she is admitting pt.
--- NOTE | 2024-05-30 17:04 | EDRN ---
Dr. Kelley in room w/ pt at this time.
--- NOTE | 2024-05-30 19:00 | EDRN ---
No whole milk in ED. Report called to [facility] in 1 acute care at this time. She said she will administer enema there. Will send molasses and she will order the milk.
[2024-05-30] MEDS: DULCOLAX 10 MG PO (21:51)
[2024-05-30] MEDS: ELIQUIS 2.5 MG PO (21:51)
[2024-05-30] MEDS: FLOMAX 0.4 MG PO (21:51)
[2024-05-30] MEDS: D5/0.9% SODIUM CHLORIDE 1000 IV (21:54)
[2024-05-30] MEDS: MS CONTIN (EXTENDED RELEASE) 15 MG PO (21:55)
--- NOTE | 2024-05-30 22:31 | TRANSFER ---
late note due to patient care.
1950:
Pt arrived from the ED to 1 acute. AXo3 ambulated by self. c/oo acute pain in left shoulder and mild pain in abd r/t admitting dx. Plan of care reviewed, room orientation completed, belongings and call corcoran with in reach.
[2024-05-31 07:10] VITALS: BP 130/74
[2024-05-31] MEDS: MS CONTIN (EXTENDED RELEASE) 15 MG PO ×2 (08:11→19:46)
[2024-05-31 08:54] LABS: Blood Urea Nitrogen 20 mg/dl (9-20); Calcium 8.8 mg/dl (8.4-10.2); Carbon Dioxide 25 mmol/L (22-30); Chloride 97 mmol/L (98-107); Estimated Creatinine Clearance 81 ml/min; Glucose 110 mg/dl (70-99); Potassium 4.2 mmol/L (3.5-5.1); Sodium 133 mmol/L (135-145); eGFR > 60.00
[2024-05-31 09:00] VITALS: BP 124/80; BP_SYST 96
[2024-05-31 09:35] VITALS: BP 120/77
[2024-05-31 10:00] VITALS: BP 133/73
--- NOTE | 2024-05-31 10:00 | PTCARENOTE ---
Received patient from IR at 1000. Patient AAOx3, no c/o pain. Left mid lung with bandaid intact. Call corcoran in reach.
--- NOTE | 2024-05-31 10:19 | CON.GI ---
Addendum entered and electronically signed by Toño Echevarria MD 05/31/24 16:16:
I saw and examined the patient.
The SOCIAL MEDIA DESIGNER or PA's note was reviewed and I agree with the note.
Comment: 64yo male with hx esophageal adenocarcinoma with metastatic disease to lung and bone. Recently rec'd XRT for palliation of bony met pain. He sees Dr Augustin Bruner at [facility] and Dr Cormier with [facility]. He has taken more pain meds and become
more constipated. Presents with abd pain, constipation. CT shows large pleural effusion, s/p tap today. Also mass and jxn R renal pelvis and ureter concerning for obstruction, malignancy. He had colonoscopy in 2022 with multiple large polyps up
to 20mm found but larger polyps not resected since he was on eliquis. Smaller polyps were adenomas. Follow up for resection was put off due to active treatment for his esophageal cancer.
REC:
Start bowel regimen, added miralax BID and senna hs
Likely narcotic induced constipation
Can discuss with Oncology whether of not pursuing resection of his large colon polyps found December 2022 is indicated in the context of his metastatic esophageal cancer
Either way would need optimization of bowel regimen
Original Note:
Consultation
-
Date/Time Consultation Requested: 05/30/241999
Date/Time Consultation Performed: 05/31/24 1015
Requesting Provider: Marlyn Kelley MD
Performing Provider: BRAD Monge, Toño Echevarria MD
Reason for Consultation: constipation
Medical History
Chief Complaint / HPI
Chief Complaint: constipation
History of Present Illness:
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 He has been followed by [facility] and Dr. Cormier locally. Pt was treated initially with carbo/taxol with radiation with peg placement and
consider FLOT therapy but not completed with low counts with prior treatment and showed initial improvement with therapy. Over time he was noted with further mets with 08/2023 PET with uptake in left paratracheal mediastinum. with CT chest noted
left mainstem bronchus nodule with bx poorly differentiated carcinoma and pt went for further radiation and carbo/Taxol. He completed radiation in January but only tolerated 2 chemo treatment and stopped with drop in counts. He also admits to know
pleural effusion (s/p tap 3/4), pelvic mets (noted with severe right pelvicaliceal dilation with obstruction on admission) and recent clavicle mets with increased pain. He completed further radiation for clavicle area but began narcotic pain
regiment for pain and admits to TID dosing but taking more with advised leading to constipation issues. Prior to admission he did see palliative care for pain control and was advised 1/2 bottle mag citrate and Dulcolax with minimal stool and
presents for evaluation.
Pt currently admits to some dysphagia with ? irritation with esophageal CA. He is able to eat soft foods. He also admits to abdominal pain worse with constipation. He did have enema since admission with some improvement and passed larger
amount of liquid stools. He has occasional GERD and decreased appetite but otherwise denies odynophagia, nausea, vomiting, diarrhea, or rectal bleeding. Pt with hx colonoscopy 2022 with multiple polyps not resected. No follow up completed as
noted with PE and need for anticoagulation and metastatic disease. CT a/p with moderate to large pleural effusion, likely malignant pleural effusion, no right effusion, severe right pelvicaliceal dilation, suggest mass at junction of right renal
pelvis and right ureter with concern for neoplastic process and obstruction. GB distention, moderate to large stool in colon suggest constipation, rectum distended with air, no stercoral colitis, no free air. No bony mets. hbg 11 on admission.
Past Medical History
Past Medical History: Cancer (lung CA- adeno CA- unclear if primary vs met, esophageal CA- distal adeno CA), HTN and Other (DVT, BPH, glucose intolerance, tobacco and ETOH abuse )
Social History
Tobacco: Former Smoker (quit 2022 )
Alcohol: Former (quit 2022 )
Drug: Marijuana
Living: Alone
Employment: Disabled
Family History
Family History: Other (sister with multiple cancer-- pt unsure of type)
Allergies / Home Medications
Allergy/AdvReac Type Severity Reaction Status Date / Time
No Known Allergies Allergy Verified 05/30/24 12:03
�Medication �Instructions �Recorded
tamsulosin 0.4 mg capsule (Flomax) 0.4 mg PO HS 02/04/24
apixaban 2.5 mg tablet (Eliquis) 2.5 mg PO BID 05/30/24
bisacodyl 10 mg rectal suppository 10 mg TN DAILYPRN PRN constipation 05/30/24
(Laxative (bisacodyl))
docusate sodium 100 mg capsule 100 mg PO DAILYPRN PRN constipation 05/30/24
(Stool Softener)
morphine 15 mg tablet,extended 15 mg PO Q12H 05/30/24
release
oxycodone 10 mg tablet 10 mg PO Q6H 05/30/24
therapeutic multivitamin 1 tab PO DAILY 05/30/24
Review of Systems
-
History Source: Patient
Constitutional: Reports Weight Loss ( 50 lbs since diagnosis )
EENT: Reports No Symptoms
Respiratory: Reports Trouble Breathing
Cardiac: Reports No Symptoms
Abdomen/GI: Reports Abdominal Pain and Constipated
: Reports No Symptoms
Musculoskeletal: Reports Other (increased pain with clavicle mets )
Neurological: Reports Weakness
Endocrine: Reports No Symptoms
Hematologic/Lymphatic: Reports No Symptoms
Vital Signs
Temp Pulse Resp BP Pulse Ox
97.8 F 93 17 130/74 98
05/31/24 07:10 05/31/24 07:10 05/31/24 07:10 05/31/24 07:10 05/31/24 07:10
Physical Exam
Exam
General: Other (thin appearing but awake and cooperative )
HEENT: Normocephalic and Anicteric
Respiratory: Clear
Cardiac: Regular Rhythm
GI: Soft, Non Distended and Tender (mild diffuse )
Musculoskeletal: No Clubbing and No Cyanosis
Skin: Warm and Dry
Neuro: Awake, Alert and AO x 3
Psych: Calm
Results
WBC 7.7 10^3/uL (4.8-10.8) 05/30/24 13:24
Hgb 11.0 g/dL (13.0-18.0) L 05/30/24 13:24
Hct 34.1 % (39.0-52.0) L 05/30/24 13:24
MCV 91.7 fL (80.0-94.0) 05/30/24 13:24
Plt Count 151 10^3/uL (130-400) 05/30/24 13:24
Absolute Neuts (auto) 6.5 10^3/uL (1.4-6.5) 05/30/24 13:24
Sodium 133 mmol/L (135-145) L 05/31/24 07:03
Potassium 4.2 mmol/L (3.5-5.1) 05/31/24 07:03
Chloride 97 mmol/L (98-107) L 05/31/24 07:03
Carbon Dioxide 25 mmol/L (22-30) 05/31/24 07:03
BUN 20 mg/dl (9-20) 05/31/24 07:03
Creatinine 0.8 mg/dL (0.7-1.3) 05/31/24 07:03
Calcium 8.8 mg/dl (8.4-10.2) 05/31/24 07:03
Total Bilirubin 0.6 mg/dl (0.2-1.3) 05/30/24 13:24
AST 17 U/L (17-59) 05/30/24 13:24
ALT 12 U/L (0-50) 05/30/24 13:24
Alkaline Phosphatase 135 U/L (38-126) H 05/30/24 13:24
Lipase 31 U/L (23-300) 05/30/24 13:24
Diagnostic Image Results:
05/30/24
IMPRESSION: Moderate to large left pleural effusion is present, extending superior to the included field of view. Nodular foci of peripheral enhancement, which very likely represents a malignant pleural effusion.
No significant right pleural effusion.
Severe right pelvicalyceal dilation with suggestion of a heterogeneously enhancing mass at the junction of the right renal pelvis and proximal right ureter. This is likely neoplastic mass resulting in obstruction, with main differential
considerations of metastatic disease and primary urothelial neoplasm.
Distended gallbladder with no secondary signs to suggest acute cholecystitis. No evidence for biliary ductal dilation.
Moderate to large amount of stool within the colon, suggesting constipation. The rectum is distended, mainly with air. No findings to suggest stercoral colitis.
No evidence for free intraperitoneal air.
Bony degenerative changes as described. No convincing evidence for bony metastatic disease within the abdomen or pelvis.
Prior GI Procedures:
EGD/EUS- 11/2022 bx esophageal mass, esophageal adeno CA well differentiated, MMR intact, HER 2 lovwer third esophagus partially obstructing , T3 N0
Colonoscopy: diverticulosis, many 3- 20mm polyps sigmoid, descending, colon and splenic flexure--return to Dr. duran after chemo bx Tubular adenoma
Assessment / Plan
-
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 He has been followed by [facility] and Dr. Cormier locally. Pt was treated initially with carbo/taxol with radiation with peg placement and
consider FLOT therapy but not completed with low counts with prior treatment and showed initial improvement with therapy. Over time he was noted with further mets with 08/2023 PET with uptake in left paratracheal mediastinum. with CT chest noted
left mainstem bronchus nodule with bx poorly differentiated carcinoma and pt went for further radiation and carbo/Taxol. He completed radiation in January but only tolerated 2 chemo treatment and stopped with drop in counts. He also admits to know
pleural effusion (s/p tap /), pelvic mets (noted with severe right pelvicaliceal dilation with obstruction on admission) and recent clavicle mets with increased pain. He completed further radiation for clavicle area but began narcotic pain
regiment for pain and admits to TID dosing but taking more with advised leading to constipation issues. Prior to admission he did see palliative care for pain control and was advised 1/2 bottle mag citrate and Dulcolax with minimal stool and
presents for evaluation. Pt also noted with mild dysphagia, GERD,decreased appetite with wt loss, and hx colon polyp noted 2022 not resected
-constipation
-hx Esophageal/lung CA with mets
-pelvic mets (noted with severe right pelvicaliceal dilation with obstruction on admission
-clavicle mets with recent radiation and increased pain requiring narcotic use
-shortness of breath with concern for moderate to large pleural effusion s/p tap
-decreased appetite/wt loss
-mild dysphagia
-hx colon polyp not resected
-DVT on Eliquis
PLAN:
etiology of constipation related to recent narcotic use but also noted hx pelvic mets and large colon polyps not resected in 2022
pt with some improvement with enema
will add Miralax BID and senna at HS- if not effective consider regiment for narcotic induced constipation
reviewed with urology ok to advance diet as feeling improved with enema
monitor intakes with decreased appetite with treatment of constipation and s/p tap of effusion
await oncology input -- pt is following with palliative care had discussed hospice with oncology but was still proceeding with further treatment at that time
support given
-
-
Thank you for consultation and allowing me to participate in the patient's care. Please call the consumer science teacher GI physician during the after hours with any questions or concerns.
[2024-05-31] MEDS: ELIQUIS 2.5 MG PO ×2 (10:33→19:46)
[2024-05-31] MEDS: DILAUDID 1 MG IV ×2 (10:34→18:41)
[2024-05-31] MEDS: D5/0.9% SODIUM CHLORIDE IV ×2 (10:39→12:22)
--- NOTE | 2024-05-31 10:48 | CM ---
CM following re: discharge planning.
Reviewed pt's chart, met with pt.
Pt is a 64 year old male, admitted with primary dx of Constipation.
Pt reports he lives alone 2SH, 2 steps to enter, has supportive daughter Stephanie, sister lives nearby and another sister lives in [place]. 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 No DME, VN or SNF history. Pt reports he
does not work, on SSD income.
PCP: Fredi Young
Pharmacy: [facility].
D/C plan: home with anticipated no needs. Daughter/sister to transport at discharge.
CM will follow with discharge plan updates as needed.
--- NOTE | 2024-05-31 11:02 | W.PN.HOSP.TC ---
Today's Communication/Plan
-
c/w bowel regimen
consult PT
Assessment / Plan
Assessment / Plan
Physical Exam
General: No Apparent Distress and Appears Chronically Ill
HEENT: Anicteric and Moist mucous membranes
Respiratory: Decreased Breath Sounds; No Wheezes
Cardiac: S1/S2 and Regular Rhythm
GI: Soft and Non Distended
Rectal: No Maroon Stools
Genito-urinary: No costovertebral tender
Musculoskeletal: No Cyanosis and No Edema
Skin: No Jaundice
Neuro: AO x 3 and Nonfocal/grossly intact
Psych: Calm and Intact Judgment/Insight
64 years old male presented with constipation and exertional shortness of breath
#Constipation, likely induced by narcotic use.
Had mild BM, refused magnesium citrate but took Dulcolax
Will try MiraLAX
No fever. No leukocytosis.
Will start the patient on IV fluid, hoping good hydration will help with constipation.
CAT scan showed moderate to large amount of stool within the colon, suggesting constipation, including stool within the splenic flexure just underneath the left hemidiaphragm.Rectum is distended with air, no signs of sterile coral colitis.
Consulted GI.
# Severe right hydronephrosis with enhancing mass at the junction of right renal pelvis and proximal ureter.
Patient reported that last PET scan in March 2024 showed active spot in the pelvis. This could be related to the mass.
No renal insufficiency.
Patient has history of BPH, had history of ureteral stent.
Discussed with urologist Dr Wu, no plan for a procedure.
Appreciate urology input
# Moderate to large left pleural effusion. This could be related to the ongoing exertional dyspnea.
s/p Successful ultrasound-guided thoracentesis, yielding 1100 cc of clear yellow pleural fluid, appreciate IR help. Post procedure chest x ray, no pneumothorax.
Patient currently is not hypoxic. Does not have fever or leukocytosis. Highly suspicious for malignant effusion
Appreciate pulmonary input.
# History of esophageal cancer/lung cancer with bony metastases.
Patient has oncology team at [facility] and Dr. Cormier. Appreciate oncology input. Pelvic mass seems to be a new finding or progression. Will follow-up with oncology.
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 Left clavicular pain is more significant/getting radiation locally. Recently started on morphine per palliative care, he was on oxycodone before that.
c/w IV pain medicine to better control his pain.
# hyponatremia. Mild. No confusion.
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 Continue with Eliquis for now.
# CODE STATUS, full code
Total time spent to see the patient, examine the patient, review data and lab results, discuss treatment plan with patient, and nursing staff around 55 minutes
Anticipated Discharge: 24 - 48 hours
Subjective/Interval History
-
Date of Service: May 31, 2024
Mild abdominal discomfort
No chest pain
Objective Data
-
Labs:
Laboratory Results
05/31/24
07:03
Sodium 133 L
Potassium 4.2
Chloride 97 L
Carbon Dioxide 25
BUN 20
Creatinine 0.8
Glucose 110 H
Calcium 8.8
Vital Signs:
Vital Signs
Temp Pulse Resp BP Pulse Ox
98 F 84 16 133/73 98
05/31/24 10:00 05/31/24 10:00 05/31/24 10:00 05/31/24 10:00 05/31/24 10:00
I&O
05/30/24 05/31/24 06/01/24
06:59 06:59 06:59
Intake Total 480 / 480
Balance 480 / 480
[2024-05-31] MEDS: MIRALAX 17 GRAMS PO ×2 (12:28→19:46)
--- NOTE | 2024-05-31 13:17 | CON.PUL ---
Consultation
Consultation Request
Date/Time Consultation Requested: 05/31/24
Date/Time Consultation Performed: 05/31/24
Performing Provider: Mahamed
Reason for Consultation: SOB
Medical History
-
History of Present Illness:
Patient is a 64-year-old male with previous history of esophageal adenocarcinoma, lung adenocarcinoma (unclear if 2 separate primaries or related disease) status post CarboTaxol concurrent with radiation completed 04/14/2023, right lower extremity
DVT on Eliquis, presenting from home for constipation, abdominal discomfort, decreased PO intake, SOB. Has is notably on palliative care as an outpatient. CXR showing new effusion, suspected to be malignant. Admitted for evaluation.
Past Medical History
Past Medical History: Other (see list below)
Social History
Tobacco: Smoker
Alcohol: Former
Drug: None
Family History
Family History: Reviewed & Not Pertinent
Allergies / Home Medications
Allergies
Allergy/AdvReac Type Severity Reaction Status Date / Time
No Known Allergies Allergy Verified 05/30/24 12:03
Home Medications
�Medication �Instructions �Recorded �Confirmed �Last Taken �Type
tamsulosin 0.4 mg capsule (Flomax) 0.4 mg PO HS 02/04/24 05/30/24 02/03/24 History
apixaban 2.5 mg tablet (Eliquis) 2.5 mg PO BID 05/30/24 05/30/24 Unknown History
bisacodyl 10 mg rectal suppository 10 mg ME DAILYPRN PRN constipation 05/30/24 05/30/24 Unknown History
(Laxative (bisacodyl))
docusate sodium 100 mg capsule 100 mg PO DAILYPRN PRN constipation 05/30/24 05/30/24 Unknown History
(Stool Softener)
morphine 15 mg tablet,extended 15 mg PO Q12H 05/30/24 05/30/24 Unknown History
release
oxycodone 10 mg tablet 10 mg PO Q6H 05/30/24 05/30/24 Unknown History
therapeutic multivitamin 1 tab PO DAILY 05/30/24 05/30/24 Unknown History
Review of Systems
-
History Source: Patient
All other systems: Negative unless noted
Vitals / Labs / Diagnostic Testing
Vital Signs
Temp Pulse Resp BP Pulse Ox
98 F 84 16 133/73 98
05/31/24 10:00 05/31/24 10:00 05/31/24 10:00 05/31/24 10:00 05/31/24 10:00
Lab Data
05/30/24 13:24
05/31/24 07:03
Diagnostic Testing:
Physical Exam
-
HEENT: Normocephalic, Anicteric and Moist Mucous Membranes
Cardiovascular: S1/S2 and Regular Rhythm
Respiratory: Clear and Non-Labored Respirations
GI: Soft, Non Distended and Non Tender
Neurology: Awake, Alert, Oriented and No Motor Deficits
Skin: Warm, Dry and Good Color
General: Comfortable and Other (NAD)
Assessment
-
Patient is a 64-year-old male with previous history of esophageal adenocarcinoma, lung adenocarcinoma (unclear if 2 separate primaries or related disease) status post CarboTaxol concurrent with radiation completed 04/14/2023, right lower extremity
DVT on Eliquis, presenting from home for constipation, abdominal discomfort, decreased PO intake, SOB. Has is notably on palliative care as an outpatient. CXR showing new effusion, suspected to be malignant.
New small L pleural effusion s/p thoracentesis 05/31/24
Acute onset SOB
Back pain
Constipation
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
Metastatic versus esophageal�lung adenocarcinoma primaries
Pulmonary nodules
DVT 12/22/2022
Obstructive uropathy with radiographically abnormal appearing right collecting system
Tobacco use disorder, 30+ pack year smoker
COPD/emphysema, follows with [facility]
PFT 01/06/23- FEV1 2.64L 77%, ratio 67--moderate obstruction
Alcohol use
Polycythemia
Chemo related cytopenias
Diarrhea
Colon polyps
HTN
Plan
No oxygen was needed on admission, currently saturating >90% on RA
Not on O2 at home
Prior history of lung disease is noted including COPD, emphysema
Had been seeing Dr POLLOCK but not in 2 years
Suspect patient has malignant effusion, cyto still pending
CXR/CT obtained indicating new effusion, small in size
Other imaging reviewed
Will repeat CXR in AM to evaluate for recurrence, if not returned can eval as OP again if symptoms return
Constipation noted, bowel regiment
GI consult for poor PO intake
Will add ensure to meals
Prior ECHO results are reviewed indicating normal function
Resume home meds, monitor on telemetry
Smoking history noted
ETOH use noted
Will need outpatient pulmonary evaluation in our office for PFTs and 6MWT
Reviewed with patient
PT/OT eval
Discussed plan of care with patient and family at bedside
We will follow
Diagnostic Data
Chest X-Ray: 05/31/24- 1. Improved left pleural effusion following thoracentesis.
2. No pneumothorax appreciated.
05/30/24- At least moderate left pleural effusion with accompanying left basilar opacification latter of which may represent atelectasis in this patient with known esophageal carcinoma. Left basilar malignancy cannot be excluded. No pneumothorax or
right pleural effusion.
CT Scan:
PET/CT 12/16/23- MEDIASTINUM: Redemonstration of a small focus of mildly intense FDG uptake in the left paratracheal mediastinum along the anterior margin of the descending thoracic aorta and left lateral aspect of the thoracic esophagus (max SUV
6.2; previously 5.4), without discrete associated soft tissue nodule/lymph node in this region. This is favored to represent a focal compressed patulous portion of the esophagus. Redemonstration of mild intraluminal FDG activity within the distal
thoracic esophagus (max SUV 5.2; previously 5.5). No additional/new suspicious FDG-avid lesions.
LUNGS: Mildly FDG avid focus of probable mucoid impaction within an anterior right upper lobe bronchus (series 4, image 93; max SUV 4.2) with mild tiny downstream tree-in-bud nodules in the anteromedial right upper lobe most in keeping with
infectious/inflammatory bronchiolitis, new from prior. Otherwise no suspicious FDG-avid lesions.
Echo: 03/14/24- Normal left ventricular size, wall thickness and systolic function. LV ejection fraction is 60% by Chawla's method of discs. Normal diastolic function. Normal right ventricular size and function. No significant valvular disease.
Estimated pulmonary artery pressure of 31 mmHg assuming a right atrial pressure of 8 mmHg. Compared to prior from December 26, 2021, no significant change.
PFT's:
Reports and relevant images were personally reviewed.
Total time spent on this consultation __75__ minutes which includes review of history, physical exam, medications, laboratory data, personal review of imaging, extensive review of outpatient records, discussion with care team and respiratory therapy.
--- NOTE | 2024-05-31 13:23 | CON.ONC ---
Impression
Impression
Relapse stage III GE junction adenocarcinoma
Narcotic analgesia associated constipation
Plan
Plan
---GI hygiene for narcotic constipation-- when stable on discharge will arrange for follow-up with Dr. Cormier to continue the workup
Patient History
History of Present Illness
Unfortunate 64-year-old white male with a history of relapsed stage III GE junction adenocarcinoma most recently treated with external beam radiation therapy for relapse of bony structures of the left shoulder for which she has had mild to moderate
relief of pain without intervention. He notes having been restaged with CT scans in February 2024 and workup of this lesion for which an abnormality was noted in the pelvis though he is unclear of the details. We do not have access to that CT
scan. He subsequently presents to the emergency room with complaints of progressive abdominal pain for which imaging studies noted left pleural effusion on chest x-ray as well as CT scan of the abdomen for which a nodular peripheral enhancing foci
were noted. There was severe hydroureteronephrosis of the right from a enhancing mass of the right renal pelvis and proximal ureter. There was moderate to large amount of stool in the colon with no evidence of bony metastasis of the abdomen or
pelvis. He does not recall having a biopsy of either the shoulder related mass which apparently is not seen on the chest x-ray nor of the renal lesion. He underwent palliative thoracentesis for diagnostic purposes also earlier today
Past-Medical/Surgical History
Knee arthroscopy Hypertension; history of right lower extremity DVT;
�
�
Patient Medication
�Medication �Instructions �Recorded �Confirmed �Last Taken �Type
tamsulosin 0.4 mg capsule (Flomax) 0.4 mg PO HS 02/04/24 05/30/24 02/03/24 History
apixaban 2.5 mg tablet (Eliquis) 2.5 mg PO BID 05/30/24 05/30/24 Unknown History
bisacodyl 10 mg rectal suppository 10 mg ID DAILYPRN PRN constipation 05/30/24 05/30/24 Unknown History
(Laxative (bisacodyl))
docusate sodium 100 mg capsule 100 mg PO DAILYPRN PRN constipation 05/30/24 05/30/24 Unknown History
(Stool Softener)
morphine 15 mg tablet,extended 15 mg PO Q12H 05/30/24 05/30/24 Unknown History
release
oxycodone 10 mg tablet 10 mg PO Q6H 05/30/24 05/30/24 Unknown History
therapeutic multivitamin 1 tab PO DAILY 05/30/24 05/30/24 Unknown History
Active Medications
Generic Name Dose Route Start Last Admin
Trade Name Freq PRN Reason Stop Dose Admin
Acetaminophen 1,000 mg 05/30/24 19:57
Acetaminophen 500 Mg Tablet PO 06/27/24 19:56
Q6HPRN PRN
mild to mod pain
Apixaban 2.5 mg 05/30/24 20:00 05/31/24 10:33
Apixaban (Eliquis) 2.5 Mg Tablet PO 06/27/24 19:59 2.5 mg
BID JOELLE Administration
Bisacodyl 10 mg 05/30/24 19:57
Bisacodyl 10 Mg Rectal Suppository RECTAL 06/27/24 19:56
DAILYPRN PRN
constipation
Hydromorphone HCl 1 mg 05/30/24 19:57 05/31/24 10:34
Hydromorphone 1 Mg/Ml Carpuject IV 06/13/24 19:56 1 mg
Q3HPRN PRN Administration
Severe pain
Morphine Sulfate 15 mg 05/30/24 20:00 05/31/24 08:11
Morphine 15 Mg Extended Release Tablet PO 06/13/24 19:59 15 mg
Q12 JOELLE Administration
Ondansetron HCl 4 mg 05/30/24 19:57
Ondansetron 4 Mg/2 Ml Vial IV 06/27/24 19:56
Q6HPRN PRN
NAUSEA/VOMITING
Polyethylene Glycol 17 grams 05/31/24 12:00 05/31/24 12:28
Polyethylene Glycol Powder 17 Grams Packet PO 06/28/24 11:59 17 grams
BID JOELLE Administration
Sennosides 17.2 mg 05/31/24 22:00
Sennosides (Senokot) 8.6 Mg Tablet PO 06/28/24 21:59
HS JOELLE
Sodium Chloride 0 flush 05/30/24 21:00
Sodium Chloride 0.9% (Flush) Syringe IV 06/27/24 20:59
PER PROTOCOL JOELLE
Tamsulosin HCl 0.4 mg 05/30/24 22:00 05/30/24 21:51
Tamsulosin 0.4 Mg Capsule PO 06/27/24 21:59 0.4 mg
HS JOELLE Administration
Review of Systems
-
All Other Systems: Reviewed and Negative (Other than unintentional 20 pound weight loss in the last 2 months)
Physical Exam
-
General: Comfortable and Appears Chronically Ill
HEENT: Moist Mucous Membranes
Cardiology: Normal Sinus Rhythm
Pulmonary: Clear
GI: Soft
Musculoskeletal: No Clubbing
Neurology: Non Focal
Skin: Warm
Psych: Calm
Labs
Lab Results
WBC 7.7 10^3/uL (4.8-10.8) 05/30/24 13:24
RBC 3.72 10^6/uL (4.70-6.10) L 05/30/24 13:24
Hgb 11.0 g/dL (13.0-18.0) L 05/30/24 13:24
Hct 34.1 % (39.0-52.0) L 05/30/24 13:24
MCV 91.7 fL (80.0-94.0) 05/30/24 13:24
MCH 29.6 pg (27.0-31.0) 05/30/24 13:24
MCHC 32.3 g/dL (33.0-37.0) L 05/30/24 13:24
RDW 14.9 % (11.5-14.5) H 05/30/24 13:24
Plt Count 151 10^3/uL (130-400) 05/30/24 13:24
MPV 8.9 fL (7.4-10.4) 05/30/24 13:24
Abs Immat Gran (auto) 0.0 10^3/uL (0-0.05) 05/30/24 13:24
Absolute Neuts (auto) 6.5 10^3/uL (1.4-6.5) 05/30/24 13:24
Absolute Lymphs (auto) 0.4 10^3/uL (1.2-3.4) L 05/30/24 13:24
Absolute Monos (auto) 0.7 10^3/uL (0.1-0.6) H 05/30/24 13:24
Absolute Eos (auto) 0.0 10^3/uL (0-0.7) 05/30/24 13:24
Absolute Basos (auto) 0.0 10^3/uL (0-0.2) 05/30/24 13:24
Immature Gran % 0.5 % (0-0.5) 05/30/24 13:24
Neutrophils % 85.3 % (42.2-75.2) H 05/30/24 13:24
Lymphocytes % 4.6 % (20.5-51.1) L 05/30/24 13:24
Monocytes % 8.8 % (1.7-9.3) 05/30/24 13:24
Eosinophils % 0.5 % (0-6) 05/30/24 13:24
Basophils % 0.3 % (0-2) 05/30/24 13:24
Creatinine 0.8 mg/dL (0.7-1.3) 05/31/24 07:03
Vital Signs
Vital Signs
Temp Pulse Resp BP Pulse Ox
98 F 84 16 133/73 98
05/31/24 10:00 05/31/24 10:00 05/31/24 10:00 05/31/24 10:00 05/31/24 10:00
[2024-05-31 15:10] VITALS: BP 123/76
--- NOTE | 2024-05-31 20:08 | W.PN.UPDATE ---
Update Note
Progress Note Update
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 Will d/c Dilaudid and order Oxycodone 10mg.
[2024-05-31] MEDS: FLOMAX 0.4 MG PO (21:29)
[2024-05-31] MEDS: SENOKOT 17.2 MG PO (21:29)
[2024-05-31 23:35] VITALS: BP 120/71
[2024-05-31] MEDS: ROXICODONE 10 MG PO (23:43)
[2024-06-01 00:04] VITALS: BP 120/71
[2024-06-01 07:00] VITALS: BP 96/70
--- NOTE | 2024-06-01 07:05 | W.PN.ONC2 ---
Today's Communication / Plan
-
Await cytology. Appreciate pulmonary assistance. Discharge home if respiratory status stable. Follow-up with Dr. Cormier for ongoing oncologic management.
Impression
Impression
Relapse stage III GE junction adenocarcinoma
Left pleural effusion
Narcotic analgesia associated constipation
Plan
Plan
Status post thoracentesis with cytologic analysis pending.
Current status is that he may have recurrent esophageal cancer versus new lung cancer.
Recurrent esophageal cancer much more likely diagnosis.
Await pleural fluid cytology.
Dr. Cormier to continue the workup post discharge including potentially adding an systemic palliative therapy and possible need for Pleurx type catheter
Subjective/Objective
Chief Complaint
ACS heme-onc progress
Subjective
Patient is feeling relatively okay. Breathing is somewhat better. He underwent thoracentesis yesterday yielding 1100 cc of clear yellow pleural fluid. Analysis including cytology is still pending.
Vital Signs:
Vital Signs
Temp Pulse Resp BP Pulse Ox
98.1 F 91 16 120/71 93
05/31/24 23:35 05/31/24 23:35 05/31/24 23:35 05/31/24 23:35 05/31/24 23:35
Lab Results:
Laboratory Data
WBC 7.7 10^3/uL (4.8-10.8) 05/30/24 13:24
Hgb 11.0 g/dL (13.0-18.0) L 05/30/24 13:24
Plt Count 151 10^3/uL (130-400) 05/30/24 13:24
eGFR > 60.00 05/31/24 07:03
Physical Exam
Cardiology: Normal Sinus Rhythm, S1 and S2
Pulmonary: Other (Decreased left-sided breath sounds)
GI: Soft
Extremities: No C/C/E
--- NOTE | 2024-06-01 07:57 | W.PN.UPDATE ---
Update Note
Progress Note Update
Patient w/ stable chronic right hydronephrosis secondary to obstructing proximal right ureteral mass - unable to definitively r/o UTUC.
H/o esophageal cancer s/p chemotherapy and XRT.
Now with recurrent esophageal cancer vs. new primary lung cancer.
s/p thoracentesis of 1100 cc fluid this admission.
Previously scheduled for CT imaging in winter 2023, patient rescheduled F/U appointment and imaging due to personal reasons and family illness.
No urologic F/U since.
- no immediate plan for percutaneous biopsy (ureteroscopic biopsy not feasible after unsuccessful attempt in 2023) this admission
- F/U w/ [facility] Oncology and Urology as outpatient pending treatment plan for esophageal and/or lung cancer
- pending thoracentesis fluid cytology
--- NOTE | 2024-06-01 08:26 | PN.CDI ---
CDI
- -
CDI:
Physician Documentation Request
Admit Date: 05/30/24 18:27
Dear Doctor Warren,
Patient admitted for constipation.
Please review the following and provide your response in the progress notes.
Clinical Indicators:
Height: 5' 0'
Weight: 132 lbs
BMI: 19.1
3/4 Oncology Consult: 'unintentional 20 pound weight loss in the last 2 months...Appears Chronically Ill'
If possible, please provide an associated diagnosis related to the abnormal BMI, such as:
Cachectic
Underweight
BMI is not significant
Other
BMI < or = to 19.9
Underweight
Weight Loss
Cachectic
Anorexia
Use of terms such as suspected, likely, concern for, or probable (associated with a specific diagnosis that is being evaluated, monitored, or treated as if it exists) are acceptable and can be coded in the inpatient setting, when documented at the
time of discharge.
Thank you,
Leah Tapia RN, BSN
CDI Specialist
Available via [place] text
Please use your independent medical judgment in providing your response.
[2024-06-01] MEDS: ELIQUIS 2.5 MG PO ×2 (08:41→19:52)
[2024-06-01] MEDS: ROXICODONE 10 MG PO ×3 (08:41→22:52)
[2024-06-01] MEDS: MIRALAX 17 GRAMS PO ×2 (08:42→19:52)
[2024-06-01] MEDS: MS CONTIN (EXTENDED RELEASE) 15 MG PO ×2 (08:42→19:52)
--- NOTE | 2024-06-01 12:22 | W.PN.HOSP.TC ---
Addendum entered and electronically signed by Marlyn Kelley MD 06/03/24 12:24:
Underweight
Original Note:
Today's Communication/Plan
-
Bowel regimen
Likely dc in am
Assessment / Plan
Assessment / Plan
Physical Exam
General: No Apparent Distress and Appears Chronically Ill
HEENT: Anicteric and Moist mucous membranes
Respiratory: Decreased Breath Sounds; No Wheezes
Cardiac: S1/S2 and Regular Rhythm
GI: Soft and Non Distended
Rectal: No Maroon Stools
Genito-urinary: No costovertebral tender
Musculoskeletal: No Cyanosis and No Edema
Skin: No Jaundice
Neuro: AO x 3 and Nonfocal/grossly intact
Psych: Calm and Intact Judgment/Insight
64 years old male presented with constipation and exertional shortness of breath
#Constipation, likely induced by narcotic use.
no BM over night
Will c/w MiraLAX & Stimulant ( he wanted Dulcolax). Stopped Senna. d/w GI, ok to use Mg citrate
No fever. No leukocytosis.
# Severe right hydronephrosis with enhancing mass at the junction of right renal pelvis and proximal ureter.
Patient reported that last PET scan in March 2024 showed active spot in the pelvis. This could be related to the mass.
No renal insufficiency.
Patient has history of BPH, had history of ureteral stent.
Discussed with urologist Dr Wu, no plan for a procedure.
Appreciate urology input
# Moderate to large left pleural effusion. This could be related to the ongoing exertional dyspnea.
s/p Successful ultrasound-guided thoracentesis, yielding 1100 cc of clear yellow pleural fluid, appreciate IR help. Post procedure chest x ray, no pneumothorax.
Patient currently is not hypoxic. Does not have fever or leukocytosis. Highly suspicious for malignant effusion
Appreciate pulmonary input.
# History of esophageal cancer/lung cancer with bony metastases.
Patient has oncology team at [facility] and Dr. Cormier. Appreciate oncology input. Pelvic mass seems to be a new finding or progression. Will follow-up with oncology.
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 Left clavicular pain is more significant/getting radiation locally. Recently started on morphine SR in addition to PRN oxycodone. He understands that narcotics are contributing to his
constipation, he will try to cut back if possible. I discussed with him other options as high dose Tylenol/ NSAIDs or gabapentin but he did not want to make changes.
# hyponatremia. Mild. No confusion.
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 Continue with Eliquis for now.
# CODE STATUS, full code
Total time spent to see the patient, examine the patient, review data and lab results, discuss treatment plan with patient, and nursing staff around 55 minutes
Anticipated Discharge: Within 24 hours
Subjective/Interval History
-
Date of Service: June 01, 2024
Reports constipation, no BM and same abdominal discomfort
Still needs the Oxy with morphine for the left clavicle pain
Objective Data
-
Vital Signs:
Vital Signs
Temp Pulse Resp BP Pulse Ox
98.0 F 109 18 96/70 95
06/01/24 07:00 06/01/24 07:00 06/01/24 07:00 06/01/24 07:00 06/01/24 08:00
I&O
05/31/24 06/01/24 06/02/24
06:59 06:59 06:59
Intake Total 480 / 480 720 / 720
Balance 480 / 480 720 / 720
[2024-06-01 12:25] VITALS: BP 103/74; PULSE 101; O2SAT 94
[2024-06-01 12:27] VITALS: BP 103/74; PULSE 103; O2SAT 94
--- NOTE | 2024-06-01 13:00 | W.PN.PUL3 ---
Today's Communication / Plan
-
No changes on CXR, stable
Awaiting final path on effusion
Awaiting BM
SOB, will add proAir PRN to continue at home
Needs pulmonary FU, we will arrange in 1-2 weeks
Otherwise, ok for d/c planning
Assessment
-
Patient is a 64-year-old male with previous history of esophageal adenocarcinoma, lung adenocarcinoma (unclear if 2 separate primaries or related disease) status post CarboTaxol concurrent with radiation completed 04/14/2023, right lower extremity
DVT on Eliquis, presenting from home for constipation, abdominal discomfort, decreased PO intake, SOB. Has is notably on palliative care as an outpatient. CXR showing new effusion, suspected to be malignant.
New small L pleural effusion s/p thoracentesis 05/31/24
Acute onset SOB
Back pain
Constipation
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
Metastatic versus esophageal�lung adenocarcinoma primaries
Pulmonary nodules
DVT 12/22/2022
Obstructive uropathy with radiographically abnormal appearing right collecting system
Tobacco use disorder, 30+ pack year smoker
COPD/emphysema, follows with [facility]
PFT 01/06/23- FEV1 2.64L 77%, ratio 67--moderate obstruction
Alcohol use
Polycythemia
Chemo related cytopenias
Diarrhea
Colon polyps
HTN
Plan
No oxygen was needed on admission, currently saturating >90% on RA
Not on O2 at home
Prior history of lung disease is noted including COPD, emphysema
Had been seeing Dr POLLOCK but not in 2 years
SOB on occasion, we will add proair to use as needed
Will need FU as OP, reviewed with patient for PFTs
Suspect patient has malignant effusion, cyto still pending
CXR/CT obtained indicating new effusion, small in size
Other imaging reviewed
Will repeat CXR in AM to evaluate for recurrence--stable effusions
Constipation noted, bowel regiment
GI consult for poor PO intake
Ensure BID
Prior ECHO results are reviewed indicating normal function
Resume home meds, monitor on telemetry
Smoking history noted
ETOH use noted
Will need outpatient pulmonary evaluation in our office for PFTs and 6MWT
Reviewed with patient
PT/OT eval
Discussed plan of care with patient and family at bedside
Discharge planning per team
Diagnostic Data
Chest X-Ray: 05/31/24- 1. Improved left pleural effusion following thoracentesis.
2. No pneumothorax appreciated.
05/30/24- At least moderate left pleural effusion with accompanying left basilar opacification latter of which may represent atelectasis in this patient with known esophageal carcinoma. Left basilar malignancy cannot be excluded. No pneumothorax or
right pleural effusion.
CT Scan:
PET/CT 12/16/23- MEDIASTINUM: Redemonstration of a small focus of mildly intense FDG uptake in the left paratracheal mediastinum along the anterior margin of the descending thoracic aorta and left lateral aspect of the thoracic esophagus (max SUV
6.2; previously 5.4), without discrete associated soft tissue nodule/lymph node in this region. This is favored to represent a focal compressed patulous portion of the esophagus. Redemonstration of mild intraluminal FDG activity within the distal
thoracic esophagus (max SUV 5.2; previously 5.5). No additional/new suspicious FDG-avid lesions.
LUNGS: Mildly FDG avid focus of probable mucoid impaction within an anterior right upper lobe bronchus (series 4, image 93; max SUV 4.2) with mild tiny downstream tree-in-bud nodules in the anteromedial right upper lobe most in keeping with
infectious/inflammatory bronchiolitis, new from prior. Otherwise no suspicious FDG-avid lesions.
Echo: 03/14/24- Normal left ventricular size, wall thickness and systolic function. LV ejection fraction is 60% by Chawla's method of discs. Normal diastolic function. Normal right ventricular size and function. No significant valvular disease.
Estimated pulmonary artery pressure of 31 mmHg assuming a right atrial pressure of 8 mmHg. Compared to prior from December 26, 2021, no significant change.
PFT's:
Reports and relevant images were personally reviewed.
Total time spent on this encounter __51__ minutes which includes review of history, physical exam, medications, laboratory data, personal review of imaging, extensive review of outpatient records, discussion with care team and respiratory therapy.
Subjective Data
-
Date of Service:
Date of Service: June 01, 2024
Chief Complaint: Pulmonary Follow Up
Subjective:
No new complaints today, still has not had BM
SOB occasionally
Objective Data
Data Reviewed
Vital Signs / I&O / Oxygen:
Vital Signs
Temp Pulse Resp BP Pulse Ox
98.0 F 109 18 96/70 95
06/01/24 07:00 06/01/24 07:00 06/01/24 07:00 06/01/24 07:00 06/01/24 08:00
Intake and Output
05/31/24 06/01/24 06/02/24
06:59 06:59 06:59
Intake Total 480 / 480 720 / 720
Balance 480 / 480 720 / 720
SaO2 95
Physical Exam
General: Comfortable and Other (NAD)
HEENT: Normocephalic and Moist Mucous Membranes
Cardiovascular: S1-S2 and Regular Rhythm
Respiratory: Clear and Non-Labored Respirations
GI: Soft, Non Distended and Non Tender
Neurology: Awake, Alert, Oriented and No Motor Deficits
Skin: Warm, Dry and Good Color
Labs/Micro/Reports
Lab Data
05/30/24 13:24
05/31/24 07:03
Microbiology
05/31/24 09:30 Pleural Fluid Body Fluid Culture - Preliminary
No Growth After 18-24 Hours
05/31/24 09:30 Pleural Fluid Gram Stain - Preliminary
[2024-06-01] MEDS: CITROMA 300 ML PO (13:09)
--- NOTE | 2024-06-01 13:39 | W.PN.GI.CBS2 ---
Today's Communication / Plan
-
No BM yet
Try Mg citrate
Cont Miralx BID
Consider enema, suppository next if no response
I discussed with Dr Gonzalez his large colon polyps from 2022. Defer addressing this to outpt Oncologist to assess in context of overall prognosis and plan
Assessment / Plan
-
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 He has been followed by [facility] and Dr. Cormier locally. Pt was treated initially with carbo/taxol with radiation with peg placement and
consider FLOT therapy but not completed with low counts with prior treatment and showed initial improvement with therapy. Over time he was noted with further mets with 08/2023 PET with uptake in left paratracheal mediastinum. with CT chest noted
left mainstem bronchus nodule with bx poorly differentiated carcinoma and pt went for further radiation and carbo/Taxol. He completed radiation in January but only tolerated 2 chemo treatment and stopped with drop in counts. He also admits to know
pleural effusion (s/p tap /), pelvic mets (noted with severe right pelvicaliceal dilation with obstruction on admission) and recent clavicle mets with increased pain. He completed further radiation for clavicle area but began narcotic pain
regiment for pain and admits to TID dosing but taking more with advised leading to constipation issues. Prior to admission he did see palliative care for pain control and was advised 1/2 bottle mag citrate and Dulcolax with minimal stool and
presents for evaluation. Pt also noted with mild dysphagia, GERD,decreased appetite with wt loss, and hx colon polyp noted 2022 not resected
-constipation
-hx Esophageal/lung CA with mets
-pelvic mets (noted with severe right pelvicaliceal dilation with obstruction on admission
-clavicle mets with recent radiation and increased pain requiring narcotic use
-shortness of breath with concern for moderate to large pleural effusion s/p tap
-decreased appetite/wt loss
-mild dysphagia
-hx colon polyp not resected
-DVT on Eliquis
Subjective
Subjective
Date of Service: June 01, 2024
No BM with miralax BID. Drinking Mg citrate now
Objective
Data Reviewed
Laboratory Data:
Laboratory Results
05/30/24 13:24
05/31/24 07:03
Laboratory Results
Total Bilirubin 0.6 mg/dl (0.2-1.3) 05/30/24 13:24
AST 17 U/L (17-59) 05/30/24 13:24
ALT 12 U/L (0-50) 05/30/24 13:24
Alkaline Phosphatase 135 U/L (38-126) H 05/30/24 13:24
Lipase 31 U/L (23-300) 05/30/24 13:24
Vital Signs and I&O:
Vital Signs
Temp Pulse Resp BP Pulse Ox
98.0 F 109 18 96/70 95
06/01/24 07:00 06/01/24 07:00 06/01/24 07:00 06/01/24 07:00 06/01/24 08:00
I&O
05/31/24 06/01/24 06/02/24
06:59 06:59 06:59
Intake Total 480 / 480 720 / 720
Balance 480 / 480 720 / 720
Physical Exam
Physical Exam
GI: Soft, Non Distended and Tender (minimal)
--- NOTE | 2024-06-01 13:48 | PTOTSP ---
Pt presents to OT at mod I/I level with basic self care, transfers and functional mobility without AD. Skilled OT not indicated at this time.
[2024-06-01 15:00] VITALS: BP 102/69
[2024-06-01] MEDS: DULCOLAX 10 MG PO ×2 (15:30→21:02)
[2024-06-01] MEDS: FLOMAX 0.4 MG PO (21:02)
[2024-06-01 23:12] VITALS: BP 118/71
[2024-06-02 07:00] VITALS: BP 97/57
[2024-06-02] MEDS: MS CONTIN (EXTENDED RELEASE) 15 MG PO (08:52)
[2024-06-02] MEDS: MIRALAX PO ×2 (08:52→12:48)
[2024-06-02] MEDS: ELIQUIS 2.5 MG PO (08:52)
[2024-06-02] MEDS: ROXICODONE 10 MG PO (08:57)
--- NOTE | 2024-06-02 10:13 | CM ---
CM following re: discharge planning.
Reviewed pt's chart, met with pt.
Pt lives alone 2SH, 2 steps to enter, has supportive daughter Stephanie, sister lives nearby and another sister lives in [place]. Pt is independent in all areas [employer], drives. No DME, VN or SNF history. Pt reports he does not work, on SSD income.
PT and OT evaluations noted - pt has no skilled PT/OT needs.
D/C plan: home with no needs. Daughter/sister to transport at discharge.
CM will follow with discharge plan updates as needed.
--- NOTE | 2024-06-02 11:45 | W.PN.HOSP.TC ---
Today's Communication/Plan
-
dc
Assessment / Plan
Assessment / Plan
Physical Exam
General: No Apparent Distress and Appears Chronically Ill
HEENT: Anicteric and Moist mucous membranes
Respiratory: Decreased Breath Sounds; No Wheezes
Cardiac: S1/S2 and Regular Rhythm
GI: Soft and Non Distended
Rectal: No Maroon Stools
Genito-urinary: No costovertebral tender
Musculoskeletal: No Cyanosis and No Edema
Skin: No Jaundice
Neuro: AO x 3 and Nonfocal/grossly intact
Psych: Calm and Intact Judgment/Insight
64 years old male presented with constipation and exertional shortness of breath
#Constipation, y induced by narcotic use.
Multiple BMs over night, he feels better
No abd pain or distension
Status post MiraLAX twice daily, Dulcolax and magnesium citrate. Patient was counseled about the use of laxative at home instructed to use daily MiraLAX and Dulcolax to avoid recurrence of constipation. If no bowel movement, he was advised to
report to his doctors or to the hospital with the risk of high-dose of narcotic can lead to bowel perforation. He and his sister verbalized understanding.
No fever. No leukocytosis.
# Severe right hydronephrosis with enhancing mass at the junction of right renal pelvis and proximal ureter.
Patient reported that last PET scan in March 2024 showed active spot in the pelvis. This could be related to the mass.
No renal insufficiency.
Patient has history of BPH, had history of ureteral stent.
Discussed with urologist Dr Wu, no plan for a procedure.
Appreciate urology input
# Moderate to large left pleural effusion. This could be related to the ongoing exertional dyspnea.
s/p Successful ultrasound-guided thoracentesis, yielding 1100 cc of clear yellow pleural fluid, appreciate IR help. Post procedure chest x ray, no pneumothorax.
Patient currently is not hypoxic. Does not have fever or leukocytosis. Highly suspicious for malignant effusion
Appreciate pulmonary input.
# History of esophageal cancer/lung cancer with bony metastases. Relapse stage III GE junction adenocarcinoma
Patient has oncology team at [facility] and Dr. Cormier. Appreciate oncology input. Pelvic mass seems to be a new finding or progression. Will follow-up with oncology.
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 Left clavicular pain is more significant/getting radiation locally. Recently started on morphine SR in addition to PRN oxycodone. He understands that narcotics are contributing to his
constipation, he will try to cut back if possible. I discussed with him other options as high dose Tylenol/ NSAIDs or gabapentin but he did not want to make changes.
# hyponatremia. Mild. No confusion.
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 Continue with Eliquis for now.
# CODE STATUS, full code
Total discharge time spent to see the patient, examine the patient, review data and lab results, discuss discharge plan with patient, his sister, and nursing staff around 69 minutes
Anticipated Discharge: Today
Subjective/Interval History
-
Date of Service: June 02, 2024
Objective Data
-
Vital Signs:
Vital Signs
Temp Pulse Resp BP Pulse Ox
97.9 F 102 18 97/57 97
06/02/24 07:00 06/02/24 07:00 06/02/24 07:00 06/02/24 07:00 06/02/24 07:00
I&O
06/01/24 06/02/24 06/03/24
06:59 06:59 06:59
Intake Total 720 / 720 960 / 960
Balance 720 / 720 960 / 960
--- NOTE | 2024-06-02 12:18 | W.PN.ONC2 ---
Today's Communication / Plan
-
.
Impression
Impression
Relapse stage III GE junction adenocarcinoma
Left pleural effusion
Narcotic analgesia associated constipation
Plan
Plan
Status post thoracentesis with cytologic analysis pending.
Current status is that he may have recurrent esophageal cancer versus new lung cancer.
Recurrent esophageal cancer much more likely diagnosis.
Await pleural fluid cytology.
Dr. Cormier to continue the workup post discharge including potentially adding an systemic palliative therapy and possible need for Pleurx type catheter
Subjective/Objective
Subjective
no new complaints
eager for dc
encouraged use of IS
Vital Signs:
Vital Signs
Temp Pulse Resp BP Pulse Ox
97.9 F 102 18 97/57 97
06/02/24 07:00 06/02/24 07:00 06/02/24 07:00 06/02/24 07:00 06/02/24 07:00
Lab Results:
Laboratory Data
WBC 7.7 10^3/uL (4.8-10.8) 05/30/24 13:24
Hgb 11.0 g/dL (13.0-18.0) L 05/30/24 13:24
Plt Count 151 10^3/uL (130-400) 05/30/24 13:24
eGFR > 60.00 05/31/24 07:03
--- NOTE | 2024-06-02 12:38 | W.PN.GI.CBS2 ---
Today's Communication / Plan
-
Moving bowels after Miralax BID and Mg citrate
Continue miralax BID and use Mg citrate prn
Will sign off. Please call back if needed
F/U OP with Dr Cormier to discuss esophageal CA treatment and whether or not removal colon polyps is necessary in context of overall treatment plan
Assessment / Plan
-
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 He has been followed by [facility] and Dr. Cormier locally. Pt was treated initially with carbo/taxol with radiation with peg placement and
consider FLOT therapy but not completed with low counts with prior treatment and showed initial improvement with therapy. Over time he was noted with further mets with 08/2023 PET with uptake in left paratracheal mediastinum. with CT chest noted
left mainstem bronchus nodule with bx poorly differentiated carcinoma and pt went for further radiation and carbo/Taxol. He completed radiation in January but only tolerated 2 chemo treatment and stopped with drop in counts. He also admits to know
pleural effusion (s/p tap 05/31), pelvic mets (noted with severe right pelvicaliceal dilation with obstruction on admission) and recent clavicle mets with increased pain. He completed further radiation for clavicle area but began narcotic pain
regiment for pain and admits to TID dosing but taking more with advised leading to constipation issues. Prior to admission he did see palliative care for pain control and was advised 1/2 bottle mag citrate and Dulcolax with minimal stool and
presents for evaluation. Pt also noted with mild dysphagia, GERD,decreased appetite with wt loss, and hx colon polyp noted 2022 not resected
Impression:
Metastatic esophageal CA
constipation
Pleural effusion
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
Large colon polyps 01/19, not removed
-constipation
-hx Esophageal/lung CA with mets
-pelvic mets (noted with severe right pelvicaliceal dilation with obstruction on admission
-clavicle mets with recent radiation and increased pain requiring narcotic use
-shortness of breath with concern for moderate to large pleural effusion s/p tap
-decreased appetite/wt loss
-mild dysphagia
-hx colon polyp not resected
-DVT on Eliquis
Subjective
Subjective
Date of Service: June 02, 2024
Had 4 loose BMs overnight
Objective
Data Reviewed
Laboratory Data:
Laboratory Results
05/30/24 13:24
05/31/24 07:03
Laboratory Results
Total Bilirubin 0.6 mg/dl (0.2-1.3) 05/30/24 13:24
AST 17 U/L (17-59) 05/30/24 13:24
ALT 12 U/L (0-50) 05/30/24 13:24
Alkaline Phosphatase 135 U/L (38-126) H 05/30/24 13:24
Lipase 31 U/L (23-300) 05/30/24 13:24
Vital Signs and I&O:
Vital Signs
Temp Pulse Resp BP Pulse Ox
97.9 F 102 18 97/57 97
06/02/24 07:00 06/02/24 07:00 06/02/24 07:00 06/02/24 07:00 06/02/24 07:00
I&O
06/01/24 06/02/24 06/03/24
06:59 06:59 06:59
Intake Total 720 / 720 960 / 960
Balance 720 / 720 960 / 960
Physical Exam
Physical Exam
GI: Soft, Non Distended and Non Tender
[2024-06-02 13:30] VITALS: BP 110/71
--- NOTE | 2024-06-02 14:26 | W.DCSUMMARY ---
Discharge Summary
Discharge Data
Date of Admission: 05/30/24
Date of Discharge: 06/02/24
-
Pending Results: No
Hospital Course
64 years old male presented with constipation. Patient also reported exertional shortness of breath. Imaging studies of the chest showed moderate to large left pleural effusion. Scan of the abdomen and pelvis showed large amount of stool in the
transverse colon and splenic flexure. Patient was evaluated by gastroenterology. He was started on laxative regimen including MiraLAX, Dulcolax and magnesium citrate. Patient had multiple bowel movements with improvement in his symptoms. He had
left thoracentesis, cytology pending. Gram stain of the pleural fluid was negative. Patient did not have fever or leukocytosis. Patient has history of stage III gastroesophageal junction adenocarcinoma, relapsing stage. He was also found to have
enhancing mass at the junction of right renal pelvis and proximal ureter With severe right hydronephrosis. Urologist evaluated the patient and did not recommend an urgent procedure. Patient was followed by oncologist, recommendation to follow in
outpatient setting for treatment options. Patient was seen by pulmonary doctor. Patient did not have hypoxia. Patient received his pain medication for chronic cancer pain with opioid dependency. Patient was able to tolerate diet. He remained
hemodynamically stable and was discharged home in a stable condition. Patient was able to ambulate independently without assistance. Discharge instructions including bowel regimen/laxative use were discussed with the patient and his sister at time
of discharge.
Discharge Plan
-
Patient Disposition: Home (Routine Discharge)
Discharge Diagnosis/Procedures: Constipation, opioid induced. Take MiraLAX daily, Dulcolax 10 mg daily in the evening. If no bowel movement in 3 days, take Dulcolax 10 mg twice daily. If still no bowel movement, discuss with your doctor
Right hydronephrosis with enhancing mass at the junction of the right renal pelvis and proximal ureter
Moderate to large left pleural effusion status postthoracentesis
Cancer pain
Condition: Good
Diet: As tolerated
Referrals:
Ahmet Mittal MD [Active] - in one to two weeks (PFTs)
Hector,Fredi L., MD [Family Provider] -
Prescriptions:
New
polyethylene glycol 3350 17 gram Powder In Packet
17 g PO DAILY Qty: 100 0RF
bisacodyl 5 mg Tablet,Delayed Release (Dr/Ec)
10 mg PO HS Qty: 60 0RF
Continued
tamsulosin [Flomax] 0.4 mg Capsule
0.4 mg PO HS
therapeutic multivitamin Tablet
1 tab PO DAILY
morphine 15 mg Tablet Extended Release
15 mg PO Q12H
oxycodone 10 mg Tablet
10 mg PO Q6H
Eliquis 2.5 mg Tablet
2.5 mg PO BID
Discontinued
bisacodyl [Laxative (bisacodyl)] 10 mg Suppository
10 mg GA DAILYPRN PRN (Reason: constipation)
docusate sodium [Stool Softener] 100 mg Capsule
100 mg PO DAILYPRN PRN (Reason: constipation)
Discharge Orders:
Discharge Patient (As Directed); Ordered 06/02/24
Ordered By: Marlyn Kelley
Discharge Date and Time
Discharge Date/Time: 06/02/24 14:02
Print Language: GREEK
== END 2024-06-02 14:02 | disposition home or self-care (01) | DRG 375 ==
LOC: 1 ACUTE 18:27
PROVIDERS: Physician Assistant; Radiology Vascular & Interventional Radiology; ADMITTING PHYSICIAN Internal Medicine; CONSULT PHYSICIAN Internal Medicine; CONSULT PHYSICIAN Internal Medicine Gastroenterology; EMERGENCY PHYSICIAN Emergency Medicine; FAMILY PHYSICIAN Family Medicine; OTHER PHYSICIAN Internal Medicine Hematology & Oncology
PROC: 0W9B3ZX Drainage of Left Pleural Cavity, Percutaneous Approach, Diagnostic (ICD-10-PCS; 2024-05-31)
DX: C16.0 Malignant neoplasm of cardia (principal); C79.51 Secondary malignant neoplasm of bone; E87.1 Hypo-osmolality and hyponatremia; J91.0 Malignant pleural effusion; N13.30 Unspecified hydronephrosis; Z68.1 Body mass index [BMI] 19.9 or less, adult; K59.03 Drug induced constipation; R19.00 Intra-abdominal and pelvic swelling, mass and lump, unspecified site; T40.2X5A Adverse effect of other opioids, initial encounter; G89.3 Neoplasm related pain (acute) (chronic); R63.6 Underweight; Z85.01 Personal history of malignant neoplasm of esophagus; Z85.118 Personal history of other malignant neoplasm of bronchus and lung; Z86.718 Personal history of other venous thrombosis and embolism
CPT/HCPCS: 88305; 32555; 71045; 71046; 74177; 80048; 80053; 83690; 85025; 87015; 87070; 87205; 88112; 96360; 97161; 97165; 99285; Q9967

== ENCOUNTER → 2024-06-06 12:26 | Outpatient (REF) | payer OTHER, SELFPAY ==
[2024-06-06 12:45] VITALS: BP 147/90; BP_SYST 83
== END ==
LOC: RADI 12:26
PROVIDERS: ATTENDING PHYSICIAN Nurse Practitioner Primary Care; FAMILY PHYSICIAN Family Medicine
DX: J90 Pleural effusion, not elsewhere classified (principal)
CPT/HCPCS: 32555; 71045

== ENCOUNTER 2024-06-15 23:17 | Observation (INO) | payer OTHER, SELFPAY ==
[2024-06-15] VITALS (9 sets, daily range): BP systolic 121–165; BP diastolic 69–99; BMI 17.0
[2024-06-15 15:48] LABS: % Basophils 0.2 % (0-2); % Eosinophils 0.8 % (0-6); % Immature Granulocytes 0.6 % (0-0.5); % Lymphocytes 3.5 % (20.5-51.1); % Monocytes 7.4 % (1.7-9.3); % Neutrophils 87.5 % (42.2-75.2); Absolute Eosinophils 0.1 10^3/uL (0-0.7); Absolute Immature Granulocytes 0.1 10^3/uL (0-0.05); Absolute Lymphocytes 0.4 10^3/uL (1.2-3.4); Absolute Monocytes 0.8 10^3/uL (0.1-0.6); Absolute Neutrophils 9.6 10^3/uL (1.4-6.5); Hematocrit 34.8 % (39.0-52.0); Mean Corp Hgb Conc. 31.6 g/dL (33.0-37.0); Mean Corpuscular Hgb 27.9 pg (27.0-31.0); Mean Corpuscular Volume 88.3 fL (80.0-94.0); Mean Platelet Volume 9.2 fL (7.4-10.4); Nucleated Red Blood Cells % 0 % (-); Platelet Count 202 10^3/uL (130-400); Red Blood Cell Count 3.94 10^6/uL (4.70-6.10); Red Cell Dist. Width 15.6 % (11.5-14.5)
[2024-06-15 16:01] LABS: ALT (SGPT) 24 U/L (0-50); AST (SGOT) 27 U/L (17-59); Albumin 3.8 g/dl (3.5-5.0); Alkaline Phosphatase 197 U/L (38-126); Blood Urea Nitrogen 30 mg/dl (9-20); Calcium 10.1 mg/dl (8.4-10.2); Carbon Dioxide 30 mmol/L (22-30); Chloride 98 mmol/L (98-107); Glucose 141 mg/dl (70-99); Lipase 50 U/L (23-300); Potassium 5.7 mmol/L (3.5-5.1); Sodium 138 mmol/L (135-145); Total Bilirubin 0.7 mg/dl (0.2-1.3); Total Protein 8.7 g/dl (6.3-8.2); eGFR > 60.00
--- NOTE | 2024-06-15 17:29 | ED.GENMED ---
History of Present Illness
<Cate Tillman PA-C - Last Filed: 06/15/24 22:12>
General
Chief Complaint: Abdominal Symptoms
Source: patient
Exam Limitations: none
Time Seen by Provider: 06/15/24 17:09
Nursing documentation reviewed up to this point in time: agreed with
History of Present Illness
History of Present Illness:
64-year-old male with a history of relapsed stage III GE junction adenocarcinoma most recently treated with external beam radiation therapy for relapse of the bony structures of the left shoulder on opiates for chronic pain who presents for
constipation and abdominal pain and vomiting. Patient was here on 3-3 to 3-6 for constipation. At that time he was found to have large stool in the colon with no evidence of bony mets in the abdomen or pelvis. He also had a pleural effusion which
required thoracentesis. Patient was managed with enemas, MiraLAX, Dulcolax, and then ultimately magnesium citrate and he was able to have bowel movements and tolerated diet before leaving. Patient says he was placed on a regimen of Dulcolax and
MiraLAX upon discharge. Patient says despite using these meds he stopped moving his bowels about a week ago. He did ultimately try magnesium citrate last night but he vomited and since then has not really had much to eat or drink. He has pain at
the top of his abdomen and ongoing chronic exertional dyspnea which has not changed. He is not having any fever, chills, chest pressure, rectal pressure, bloody stools.
Past History
<Cate Tillman PA-C - Last Filed: 06/15/24 22:12>
Past History
ED Past Medical History: Cancer (esophageal cancer)
ED Past Surgical History: Orthopedic
Social History
Tobacco: Smoker
Alcohol: None
Drug: None
Personal:
Living: with family
Phy Exam
<Cate Tillman PA-C - Last Filed: 06/15/24 22:12>
Physical Exam
Physical Exam:
GENERAL: Alert , very thin
EYE: pupils equal and reactive
NECK: Supple
ENT: o/p clr, dry mouth.
CARDIAC: Regular rate and rhythm .
LUNGS: Clear breath sounds bilaterally, no acute respiratory distress, no wheezes/rales/rhonchi
ABDOMEN: Soft, mild distension, tenderness epigastric region; no r/g, no cvat, normal bowel sounds
NEUROLOGICAL: Alert and oriented, no focal neuro deficits
SKIN: Warm and dry, skin intact.
MUSCULOSKELETAL: No edema, well perfused. neg sophia's sign
PSYCH: Normal and appropriate interaction.
Course
<Cate Tillman PA-C - Last Filed: 06/15/24 22:12>
Orders/Labs/Results
Orders:
Orders
06/15/24 15:36
Complete Blood Count/With Diff Urgent
Comprehensive Metabolic Panel Urgent
Lipase Urgent
06/15/24 17:16
Electrocardiogram (*1) Urgent
Reason for Study: Other
Other Reason for Exam: hyperkalemia
EKG- Treatment ONCE
06/15/24 17:26
CT Abd/pel W Iv And Oral Contr Urgent
Comment:
Reason For Exam: abd pain, vomiting, constipation; cancer
0.9% Sodium Chloride 500 ml [Nss] 500 ml IV BOLUS
Iohexol [Omnipaque] See Protocol PO NOW STA
CR Chest - 2 Views Urgent
Comment:
Reason For Exam: recurrent malignant effusion, sob
06/15/24 18:05
Sodium Zirconium Cyclosilicate [Lokelma] 10 gram PO NOW STA
06/15/24 19:06
Morphine Sulfate 4 mg IV NOW STA
Ondansetron Injectable [Zofran] 4 mg IV NOW STA
06/15/24 21:52
0.9% Sodium Chloride 500 ml [Nss] 500 ml IV BOLUS
06/15/24 21:56
Troponin I Urgent
Abnormal Lab Results
06/15/24
15:36
WBC 11.0 H 10^3/uL
(4.8-10.8)
RBC 3.94 L 10^6/uL
(4.70-6.10)
Hgb 11.0 L g/dL
(13.0-18.0)
Hct 34.8 L %
(39.0-52.0)
MCHC 31.6 L g/dL
(33.0-37.0)
RDW 15.6 H %
(11.5-14.5)
Abs Immat Gran (auto) 0.1 H 10^3/uL
(0-0.05)
Absolute Neuts (auto) 9.6 H 10^3/uL
(1.4-6.5)
Absolute Lymphs (auto) 0.4 L 10^3/uL
(1.2-3.4)
Absolute Monos (auto) 0.8 H 10^3/uL
(0.1-0.6)
Immature Gran % 0.6 H %
(0-0.5)
Neutrophils % 87.5 H %
(42.2-75.2)
Lymphocytes % 3.5 L %
(20.5-51.1)
Potassium 5.7 H mmol/L
(3.5-5.1)
BUN 30 H mg/dl
(9-20)
Glucose 141 H mg/dl
(70-99)
Alkaline Phosphatase 197 H U/L
(38-126)
Total Protein 8.7 H g/dl
(6.3-8.2)
06/15/24 15:36
06/15/24 15:36
Vital Signs
Initial and Last Documented VS:
Initial Vital Signs
Temp Pulse Resp BP Pulse Ox
36.9 C 97 18 121/84 99
06/15/24 15:21 06/15/24 15:21 06/15/24 15:21 06/15/24 15:21 06/15/24 15:21
Last Documented Vital Signs
Temp Pulse Resp BP Pulse Ox
36.9 C 88 22 149/90 95
06/15/24 15:21 06/15/24 22:00 06/15/24 22:00 06/15/24 22:00 06/15/24 21:45
<Shahbaz Marin MD - Last Filed: 06/15/24 22:26>
Orders/Labs/Results
Orders:
Orders
06/15/24 15:36
Complete Blood Count/With Diff Urgent
Comprehensive Metabolic Panel Urgent
Lipase Urgent
06/15/24 17:16
Electrocardiogram (*1) Urgent
Reason for Study: Other
Other Reason for Exam: hyperkalemia
EKG- Treatment ONCE
06/15/24 17:26
CT Abd/pel W Iv And Oral Contr Urgent
Comment:
Reason For Exam: abd pain, vomiting, constipation; cancer
0.9% Sodium Chloride 500 ml [Nss] 500 ml IV BOLUS
Iohexol [Omnipaque] See Protocol PO NOW STA
CR Chest - 2 Views Urgent
Comment:
Reason For Exam: recurrent malignant effusion, sob
06/15/24 18:05
Sodium Zirconium Cyclosilicate [Lokelma] 10 gram PO NOW STA
06/15/24 19:06
Morphine Sulfate 4 mg IV NOW STA
Ondansetron Injectable [Zofran] 4 mg IV NOW STA
06/15/24 21:52
0.9% Sodium Chloride 500 ml [Nss] 500 ml IV BOLUS
06/15/24 21:56
Troponin I Urgent
Abnormal Lab Results
06/15/24
15:36
WBC 11.0 H 10^3/uL
(4.8-10.8)
RBC 3.94 L 10^6/uL
(4.70-6.10)
Hgb 11.0 L g/dL
(13.0-18.0)
Hct 34.8 L %
(39.0-52.0)
MCHC 31.6 L g/dL
(33.0-37.0)
RDW 15.6 H %
(11.5-14.5)
Abs Immat Gran (auto) 0.1 H 10^3/uL
(0-0.05)
Absolute Neuts (auto) 9.6 H 10^3/uL
(1.4-6.5)
Absolute Lymphs (auto) 0.4 L 10^3/uL
(1.2-3.4)
Absolute Monos (auto) 0.8 H 10^3/uL
(0.1-0.6)
Immature Gran % 0.6 H %
(0-0.5)
Neutrophils % 87.5 H %
(42.2-75.2)
Lymphocytes % 3.5 L %
(20.5-51.1)
Potassium 5.7 H mmol/L
(3.5-5.1)
BUN 30 H mg/dl
(9-20)
Glucose 141 H mg/dl
(70-99)
Alkaline Phosphatase 197 H U/L
(38-126)
Total Protein 8.7 H g/dl
(6.3-8.2)
06/15/24 15:36
06/15/24 15:36
Vital Signs
Initial and Last Documented VS:
Initial Vital Signs
Temp Pulse Resp BP Pulse Ox
36.9 C 97 18 121/84 99
06/15/24 15:21 03/19/25 15:21 06/15/24 15:21 06/15/24 15:21 06/15/24 15:21
Last Documented Vital Signs
Temp Pulse Resp BP Pulse Ox
36.9 C 88 22 149/90 95
06/15/24 15:21 06/15/24 22:00 06/15/24 22:00 06/15/24 22:00 06/15/24 21:45
<Cate Tillman PA-C - Last Filed: 06/15/24 22:12>
MDM/Problems Addressed
Differential Diagnosis Includes:
CONSTIPATION, DEHYDRATION, VOMITING,
MDM/Problems Addressed:
64 y/o M with h/o esophageal adenocarcinoma, mets to bone and lung
just here 3 weeks ago for opiate induced consptiaiton and belly pain
pt was given bowel regimen and ultimately moved bowels
went home on doculax and miralax and has been using it
no BM in 1 week
dec po intake
then last night vomited mag citrate he tried to drink
didn't really eat or drink much today
has had some exertional dyspena which has been ongoing with the pleural effusion he had, this is not new
no fever/chils
mild cough
on exam pt is thin, dry mouth, slightly distedned abdoemn with tenderness epigastric region
ekg showed some mild t wave peaking and his k is 5.7
BUN elevated more than usual
tp does not feel comfortable going home, he is weak, dehydrated
d/w ed attending who agree
ivf
<Cate Tillman PA-C - Last Filed: 06/15/24 22:12>
*Critical Care Note
Total Time (30-74mins, 75-104mins- exclusive of procedures): Not Applicable
ED Attending Note
<Cate Tillman PA-C - Last Filed: 06/15/24 22:12>
-
Portions of this chart may have been created with voice recognition software.� Occasional wrong word or��sound alike� substitutions may have occurred due to the inherent limitations of voice recognition software.
<Shahbaz Marin MD - Last Filed: 06/15/24 22:26>
ED Attending Note
Patient seen and examined by attending physician: Yes
ED Attending Note:
I have seen and evaluated the patient with a [id number] encounter. I have spoken to the advance practicer provider and involved in the medical history, the physical exam, medical decision making.
Evaluation and management service: agree unless noted differently below.
Results interpretation: agree unless noted differently below.
Focused HPI: 64-year-old male with past medical history as noted presents to the ER for constipation and abdominal pain, weakness. Was admitted 2 weeks ago for constipation, discharged on bowel regiment. Has been compliant with this but says he
has not had a bowel movement in the past week. Poor appetite not eating and drinking well. Feels very weak and believes he is dehydrated. Having nausea no vomiting. Increasing abdominal pain which prompted ER visit.
Physical exam: Awake alert chronically ill-appearing. Vital signs normal. Abdomen soft, mildly tympanic and distended, diffuse mild tenderness. No peritoneal signs. No masses.
Medical Decision Makin-year-old male presents with constipation, abdominal discomfort and weakness. Vitals and exam as above. Labs showed mild leukocytosis, CMP concerning for dehydration with elevated BUN to creatinine ratio and mild
hyperkalemia. Treatment summary Lokelma and fluids. CT abdomen pelvis shows constipation but no obstruction. Suspect constipation primary cause for his abdominal discomfort likely in the setting of dehydration. Admit for fluids, trend labs,
bowel regimen.
Discharge Plan
Departure
Patient Disposition: Admit
Date of Disposition: 06/15/24
Time of Disposition: 22:05
Admit to: Telemetry
Presentation/result/management discussed w/ accepting MD/DO: Hospitalist
Condition: Fair
Covid-19: Not Applicable
Discharge Problem:
Dehydration, Constipation, Vomiting, Hyperkalemia
Prescriptions:
No Action
tamsulosin [Flomax] 0.4 mg Capsule
0.4 mg PO HS
therapeutic multivitamin Tablet
1 tab PO DAILY
oxycodone 10 mg Tablet
10 mg PO Q6H
Eliquis 2.5 mg Tablet
2.5 mg PO BID
polyethylene glycol 3350 17 gram Powder In Packet
17 g PO DAILY Qty: 100 0RF
bisacodyl 5 mg Tablet,Delayed Release (Dr/Ec)
10 mg PO HS Qty: 60 0RF
morphine 30 mg Tablet Extended Release
30 mg PO Q12H
Referrals:
Fredi Young MD [Family Provider] -
Interventions
Interventions:
*Risk Screen - Suicide Last Done: 06/15/24 15:21
*General Assessment Last Done: 06/15/24 15:21
*Neglect/Abuse Screening Last Done: 06/15/24 15:21
*ED- Fall Risk Assessment Last Done: 06/15/24 15:21
*ED COVID-19 Vaccine History Last Done: 06/15/24 15:21
TE-Duzkaj-Mwunjlbwia Assessment Last Done: 06/15/24 18:22
Discharge Date and Time
Print Language: FRISIAN
[2024-06-15] MEDS: OMNIPAQUE 50 ML PO (17:55)
[2024-06-15] MEDS: NSS 500 IV ×2 (18:03→21:55)
[2024-06-15] MEDS: LOKELMA 10 GRAM PO (18:37)
[2024-06-15] MEDS: ZOFRAN 4 MG IV (19:08)
[2024-06-15] MEDS: MORPHINE SULFATE 4 MG IV (19:08)
--- NOTE | 2024-06-15 22:20 | HPS.HSE ---
Family Physician
-
Family Physician: Fredi Young
Chief Complaint
-
epgastric pain
History of Present Illness
64-year-old male with a history of relapsed stage III GE junction adenocarcinoma most recently treated with external beam radiation therapy for relapse of the bony structures of the left shoulder on opiates for chronic pain who presents for
constipation and abdominal pain and vomiting. he has not had bowel movement for more than a week.he took mag citrate, which made him vomit. last night he vomited twice. he is having epigastric abdominal pain. denied fever, chills, chest pain. he
stated sob. denied dysuria or hematuria.
Patient was here on 3-3 to 3-6 for constipation. At that time he was found to have large stool in the colon with no evidence of bony mets in the abdomen or pelvis. He also had a pleural effusion which required thoracentesis. Patient was managed
with enemas, MiraLAX, Dulcolax, and then ultimately magnesium citrate and he was able to have bowel movements and tolerated diet before leaving. Patient says he was placed on a regimen of Dulcolax and MiraLAX upon discharge. Patient says despite
using these meds he stopped moving his bowels about a week ago.
CT with Large amount of stool within the colon, mainly from the right colon through the distal descending colon, compatible with constipation. No convincing evidence for small bowel obstruction. There is no free intraperitoneal air.
admitting for further management.
Medical History
Past Medical History
Past Medical History: Reports Other
Additional Past Medical History:
Pulmonary nodules
Globules
Esophageal cancer
Colon polyp
Hypertension
BPH
Past Surgical History: Reports None and Other (Exploratory of stomach)
Social History
Tobacco: Former Smoker
Alcohol: None
Drug: None
Family History
Family History: Not pertinent
Allergies / Home Medications
Allergies reflects when Allergies were last updated in [facility].
Home Medications with original date entered in [facility]
Allergy/Medication List:
Allergies
Allergy/AdvReac Type Severity Reaction Status Date / Time
No Known Allergies Allergy Verified 06/15/24 15:23
Home Medications
tamsulosin 0.4 mg capsule (Flomax) 0.4 mg PO HS 02/04/24
apixaban 2.5 mg tablet (Eliquis) 2.5 mg PO BID 05/30/24
oxycodone 10 mg tablet 10 mg PO Q6H 05/30/24
therapeutic multivitamin 1 tab PO DAILY 05/30/24
bisacodyl 5 mg tablet,delayed release 10 mg (2 x 5 mg) PO HS #60 tabs 06/02/24
polyethylene glycol 3350 17 gram oral powder packet 17 g PO DAILY #100 ea 06/02/24
morphine 30 mg tablet,extended release 30 mg PO Q12H 06/15/24
Review of Systems
-
Constitutional: Reports No Symptoms
EENT: Reports No Symptoms
Respiratory: Reports No Symptoms
Cardiac: Reports No Symptoms
Abdomen/GI: Reports Abdominal Pain, Nausea, Vomiting and Constipated
: Reports No Symptoms
Musculoskeletal: Reports No Symptoms
Skin: Reports No Symptoms
Neurological: Reports No Symptoms
Endocrine: Reports No Symptoms
Hematologic/Lymphatic: Reports No Symptoms
Psych: Reports No Symptoms
Physical Exam
Vital Signs
Vital Signs
Temp Pulse Resp BP Pulse Ox
98.5 F 88 22 149/90 95
06/15/24 15:21 06/15/24 22:00 06/15/24 22:00 06/15/24 22:00 06/15/24 21:45
Physical Exam
General: Well Developed, Well Nourished and No Apparent Distress
HEENT: NormoCephalic, Moist mucous membranes and Atraumatic
Respiratory: Clear
Cardiac: S1/S2 and Regular Rhythm; No Murmur or Rub
GI: Soft, Non Tender, Non Distended and Normal Bowel Sounds; No Organomegaly
Rectal: Deferred by Provider
Musculoskeletal: No Clubbing, No Cyanosis and No Edema
Skin: No Rash
Neuro: AO x 3 and Nonfocal/grossly intact
Psych: Calm
Laboratory Results
-
06/15/24 15:36
06/15/24 15:36
Laboratory Results
Total Bilirubin 0.7 mg/dl (0.2-1.3) 06/15/24 15:36
AST 27 U/L (17-59) 06/15/24 15:36
ALT 24 U/L (0-50) 06/15/24 15:36
Alkaline Phosphatase 197 U/L (38-126) H 06/15/24 15:36
Lipase 50 U/L (23-300) 06/15/24 15:36
Data Reviewed
-
CT Scan: Report Reviewed by me
Lab Data: Labs Reviewed by me
Impression/Plan
-
# History of esophageal adenocarcinoma mets to bone/plan
-supposed to get chemo two days ago, but couldn't as he was not feeling well
-follow[facility].
-Morphine and Oxy continued
# Opioid-induced constipation/nausea vomiting associate with abdominal pain
-No bowel movement for 1 week
-Repeat CT shows constipation, no fecal impaction no obstruction
-senna, Colace, miralax
-prn stool softeners
-lactulose added
-clear liquid diet
-GI consult
# Hyperkalemia
-Lokelma in ER
# Leukocytosis likely stress reaction
-WBCs 11.9
-Patient is afebrile-continue to monitor
# Anemia of chronic disease
-Hemoglobin is 11.0
-No active bleeding
-Continue to monitor
# BPH Flomax continue
-
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 Continue with Eliquis for now.
# CODE STATUS, DNR
[2024-06-15 22:31] LABS: Troponin I < 0.012 ng/ml
--- NOTE | 2024-06-15 23:17 | W.PN.UPDATE ---
Update Note
Progress Note Update
Patient seen and condition with [employer] INVESTIGATOR. I agree with the findings and physical. I concur with the assessment and plan.
This Is a 64-year-old with past medical history significant for esophageal adenocarcinoma stage III with relapse with mets to the bone status post recent total radiation to the left shoulder, mets to lungs, on chronic opioids with recurrent
constipation. Patient presents to the emergency department today with constipation and vomiting. Patient was admitted to the hospital and discharged on June 03 for same symptoms. Was found to have constipation involving large stool burden to the
right colon from the flexure to distal descending colon. No obstruction noted. He also has a ureteral mass. Patient was diagnosed with recurrent cancer and plan was to start outpatient chemotherapy which he is started. Was started on bowel
regimen and patient did have bowel movements while in the hospital. He was discharged on a bowel regimen. Patient reported that his last bowel movement was about 1 week ago. He tried mag citrate last night which resulted in vomiting. Still has
not had a bowel movement so he came to the emergency department. He reports abdominal pain. Denies fevers or chills. Reports that he is passing gas.
In the emergency department he was afebrile, blood pressure was 150/90 with a pulse of 86 and oxygen saturation 95%. Troponin was negative. Lipase was negative. CBC was unremarkable. Electrolytes notable for a potassium of 5.7 but otherwise
notable for a bicarb of 30 and a BUN of 30. Creatinine 0.9. Glucose was normal. Chest x-ray shows trace pleural effusion (status post recent diagnostic thoracentesis).
CT of the abdomen and pelvis shows small effusion, no obstruction but large stool burden from the right colon to the descending right colon distally. There is gas in the rectum. The right ureter has a obstructing mass similar to prior.
Assessment and plan
Recurrent constipation with large stool burden secondary to opioid use for chronic cancer related pain. No obstruction on imaging.
- admit to med/surg observation
- trial of bowel regimen with lactulose q 6 hours until bm or x 4, then stop
- did not want to try mag citrate, so MOM bid for now, hold for diarrhea
- miralax daily
- suppository prn
- due to chronic pain will need to continue his morphine and prn oxycodone despite opioid associated constipation
- antiemetics
- clear liquids, ADAT
- GI consultation
DVT PPX - h/o DVT, on apixaban 2.5 bid ppx
Code status - DNR
[2024-06-16] MEDS: MS CONTIN (EXTENDED RELEASE) 30 MG PO ×3 (00:17→19:53)
[2024-06-16] MEDS: DUPHALAC/CHRONULAC 20 GRAMS PO ×4 (00:17→17:58)
[2024-06-16] MEDS: SENOKOT 8.6 MG PO ×2 (00:17→08:16)
[2024-06-16] MEDS: ROXICODONE 10 MG PO ×5 (00:18→23:06)
[2024-06-16] MEDS: NSS 1000 IV (02:15)
--- NOTE | 2024-06-16 06:24 | PTCARENOTE ---
Patient received from ED via stretcher and ambulated to bed. He was oriented to room and surroundings. See nursing assessment for physical findings. IVF per order. Patient with large soft BM this am.
--- NOTE | 2024-06-16 06:55 | CON.GI ---
Addendum entered and electronically signed by Santana Gonzalez MD 06/16/24 11:37:
Patient seen and examined, agree with nurse practitioner note. Patient is a 64-year-old male with past medical history as noted with metastatic esophageal cancer. He is admitted again with increasing constipation and abdominal pain. His CT scan
showed large amount of stool, mostly on the right, without much stool in the rectum or distal sigmoid. Overnight he did have a large bowel movement and is overall feeling better, though still having his usual chronic pain. He has been tolerating
p.o. okay, overall able to maintain. On exam now he has some mild distention and tenderness though he feels is improved, no rebound.
1. Constipation: Likely multifactorial, with opioid use, decreased oral intake. He has had a good evacuation overnight and is overall improved, with benign exam now. We discussed increasing MiraLAX to twice daily or 3 times daily, can titrate to
effect. If still not improving could consider Movantik or other medicines for opioid-induced constipation as an outpatient, though usually do well titrating MiraLAX
2. Dysphagia: Secondary to esophageal malignancy. Overall he has been able to maintain and doing okay with his soft diet and supplementation. He had considered esophageal stent in the past though had deferred and is overall doing okay with
dietary modifications.
We will sign off for now, please call back with any further questions.
Original Note:
Consultation
-
Date/Time Consultation Requested: 06/15/24 1840
Date/Time Consultation Performed: 06/16/24 0830
Requesting Provider: BRAD Pollock
Performing Provider: BRAD Monge, Owen Gonzalez MD
Reason for Consultation: constipation
Medical History
Chief Complaint / HPI
Chief Complaint: constipation
History of Present Illness:
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 He has been followed by [facility] and Dr. Cormier locally. Pt was treated initially with carbo/taxol with
radiation with peg placement and consider FLOT therapy but not completed with low counts with prior treatment and showed initial improvement with therapy. Over time he was noted with further mets with 09/17/23 PET with uptake in left paratracheal
mediastinum. with CT chest noted left mainstem bronchus nodule with bx poorly differentiated carcinoma and pt went for further radiation and carbo/Taxol. He completed radiation in January but only tolerated 2 chemo treatment and stopped with drop
in counts. He also admits to know pleural effusion (s/p tap 3/4 c/w mets from esophagus), pelvic mets (noted with severe right pelvicaliceal dilation with obstruction on [address]) and recent clavicle mets with increased pain s/p radiation.
He had recent admission 05/30-06/02 with constipation issues thought to be narcotic induced with admission of increased narcotic use unresponsive to mag citrate at home. During that admission he was treated with laxative regiment and discharged on
miralax and bisacodyl daily. He was also seen by oncology for continued active treatment and pleural fluid noted with + malignant cell c/w esophageal adeno. He now returns with continued issues with constipation. He again tried mag citrate with
noted vomiting. He repeat CT on return with small pleural effusion, bullous/emphysematous changes within the central to lateral inferior aspect of the left lower lobe of the lung, nodular foci in pericardial fat with multiple neoplastic nodes, new
focal small airway disease Right lower lobe lung, large amount of stool in colon no small bowel obstruction, distention of rectum with air, and large mass right ureter with obs of right pelvicalyceal system and proximal ureter
Pt currently admits to some dysphagia with solids and feeling of symptoms worsening over time. He is tolerating liquids and some soft sides but less overtime. Recently taking Ensure, Gatorade and water. He is still tolerating pills. He
did have review in past for esophageal stent but did not proceed. He does have occasional vomiting which was noted after mag citrate dosing and small amount this am. He admits to ongoing constipation but did have large mud like stool this am
after regiment of laxative given on admission. He has chronic abdominal pain was 8-9/10 on admission now 08/06. Denies blood or black in stools. Pt with hx colonoscopy 2022 with multiple polyps not resected. No follow up completed as noted with
PE and need for anticoagulation and metastatic disease.
Past Medical History
Past Medical History: Cancer (lung CA- adeno CA- unclear if primary vs met, esophageal CA- distal adeno CA), HTN and Other (DVT, BPH, glucose intolerance, tobacco and ETOH abuse )
Past Surgical History: Other (prior peg )
Social History
Tobacco: Former Smoker (quit 2022 )
Alcohol: Former (quit 2022 )
Drug: Marijuana
Living: Alone (sister and daughter assist as needed with care )
Employment: Disabled
Family History
Family History: Other (sister with multiple cancer-- pt unsure of type)
Allergies / Home Medications
Allergy/AdvReac Type Severity Reaction Status Date / Time
No Known Allergies Allergy Verified 06/15/24 15:23
�Medication �Instructions �Recorded
tamsulosin 0.4 mg capsule (Flomax) 0.4 mg PO HS 02/04/24
apixaban 2.5 mg tablet (Eliquis) 2.5 mg PO BID 05/30/24
oxycodone 10 mg tablet 10 mg PO Q6H 05/30/24
therapeutic multivitamin 1 tab PO DAILY 05/30/24
bisacodyl 5 mg tablet,delayed 10 mg (2 x 5 mg) PO HS #60 tabs 06/02/24
release
polyethylene glycol 3350 17 gram 17 g PO DAILY #100 ea 06/02/24
oral powder packet
morphine 30 mg tablet,extended 30 mg PO Q12H 06/15/24
release
Review of Systems
-
History Source: Patient
Constitutional: Reports Weight Loss
EENT: Reports No Symptoms
Respiratory: Reports Trouble Breathing
Abdomen/GI: Reports Abdominal Pain, Nausea, Vomiting and Constipated
: Reports No Symptoms
Skin: Reports No Symptoms
Neurological: Reports Other (depression with ongoing illness )
Endocrine: Reports No Symptoms
Hematologic/Lymphatic: Reports No Symptoms
Vital Signs
Temp Pulse Resp BP Pulse Ox
97.5 F 81 19 143/69 93
06/15/24 23:43 06/15/24 23:43 06/15/24 23:43 06/15/24 23:43 06/15/24 23:43
Physical Exam
Exam
General: Other (thin appearing )
HEENT: Normocephalic and Anicteric
Respiratory: Other (decreased )
Cardiac: Regular Rhythm
GI: Soft, Non Distended and Tender (minimal )
Musculoskeletal: No Clubbing and No Cyanosis
Skin: Warm and Dry
Neuro: Awake, Alert and AO x 3
Psych: Calm
Results
WBC 11.0 10^3/uL (4.8-10.8) H 06/15/24 15:36
Hgb 11.0 g/dL (13.0-18.0) L 06/15/24 15:36
Hct 34.8 % (39.0-52.0) L 06/15/24 15:36
MCV 88.3 fL (80.0-94.0) 06/15/24 15:36
Plt Count 202 10^3/uL (130-400) 06/15/24 15:36
Absolute Neuts (auto) 9.6 10^3/uL (1.4-6.5) H 06/15/24 15:36
Sodium 138 mmol/L (135-145) 06/15/24 15:36
Potassium 5.7 mmol/L (3.5-5.1) H 06/15/24 15:36
Chloride 98 mmol/L (98-107) 06/15/24 15:36
Carbon Dioxide 30 mmol/L (22-30) 06/15/24 15:36
BUN 30 mg/dl (9-20) H 06/15/24 15:36
Creatinine 0.9 mg/dL (0.7-1.3) 06/15/24 15:36
Calcium 10.1 mg/dl (8.4-10.2) 06/15/24 15:36
Total Bilirubin 0.7 mg/dl (0.2-1.3) 06/15/24 15:36
AST 27 U/L (17-59) 06/15/24 15:36
ALT 24 U/L (0-50) 06/15/24 15:36
Alkaline Phosphatase 197 U/L (38-126) H 06/15/24 15:36
Lipase 50 U/L (23-300) 06/15/24 15:36
Diagnostic Image Results:
06/15/24 CT Abd/pel W Iv And Oral Contr
IMPRESSION: Small left pleural effusion, decreased in size from prior CT examination, compatible with history of thoracentesis. Peripheral thickening and nodularity of the effusion, compatible with a malignant pleural effusion.
Focal rounded area of bullous/emphysematous changes within the central to lateral inferior aspect of the left lower lobe of the lung.
There are small nodular foci of increased density within the left pericardial fat pad, suspicious for multiple neoplastic lymph nodes. There is only a minimal pericardial effusion this time.
There is no evidence for right pleural effusion. Branching small nodular opacities within the posterior and inferior right lower lobe, compatible with focal small airway disease, new from prior examination.
Large amount of stool within the colon, mainly from the right colon through the distal descending colon, compatible with constipation. No convincing evidence for small bowel obstruction. There is no free intraperitoneal air.
Distention of the rectum with air, transverse dimension of 7.9 cm. No evidence for stercoral colitis.
There is a large mass arising in the proximal right ureter with obstruction of the right pelvicalyceal system and proximal ureter. This mass is slightly larger than on previous CT examination, with main differential considerations of metastatic
neoplasm and primary urothelial neoplasm.
05/30/24
IMPRESSION: Moderate to large left pleural effusion is present, extending superior to the included field of view. Nodular foci of peripheral enhancement, which very likely represents a malignant pleural effusion.
No significant right pleural effusion.
Severe right pelvicalyceal dilation with suggestion of a heterogeneously enhancing mass at the junction of the right renal pelvis and proximal right ureter. This is likely neoplastic mass resulting in obstruction, with main differential
considerations of metastatic disease and primary urothelial neoplasm.
Distended gallbladder with no secondary signs to suggest acute cholecystitis. No evidence for biliary ductal dilation.
Moderate to large amount of stool within the colon, suggesting constipation. The rectum is distended, mainly with air. No findings to suggest stercoral colitis.
No evidence for free intraperitoneal air.
Bony degenerative changes as described. No convincing evidence for bony metastatic disease within the abdomen or pelvis.
Prior GI Procedures:
EGD/EUS- 11/2022 bx esophageal mass, esophageal adeno CA well differentiated, MMR intact, HER 2 lovwer third esophagus partially obstructing , T3 N0
Colonoscopy: 12/2022 diverticulosis, many 3- 20mm polyps sigmoid, descending, colon and splenic flexure--return to Dr. duran after chemo bx Tubular adenoma
Assessment / Plan
-
Pt is a 64yo with hx HTN, BPH, DVT on Eliquis, colon polyps, prior peg, relapsing esophageal adeno CA since Nov 2022 with multiple mets to paratracheal/bronchus/pleural fluid, pelvic met with large mass right ureter with obs of right pelvicalyceal
system and proximal ureter, clavicle met with recent radiation. He has been on chronic narcotics with increased dose for pain control. He has been followed by [facility] and Dr. Cormier locally. He has had multiple treatment regiment with some
intolance with drop in count and was due this week to resume treatment. He had recent admission 05/30-06/02 with constipation issues thought to be narcotic induced with admission of increased narcotic use unresponsive to mag citrate at home. During
that admission he was treated with laxative regiment and discharged on miralax and bisacodyl daily and noted with recurrent constipation and vomiting with mag citrate and returns for further evaluation. He also has some progressive dysphagia and wt
loss. Pt with hx colonoscopy 2022 with multiple polyps not resected.
Impression:
constipation- narcotic induced
Metastatic esophageal CA with mets with slowly worsening dysphagia
malignant Pleural effusion
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
Large colon polyps 01/19, not removed
hx DVT on Eliquis
PLAN:
Pt on Miralax 17 gram daily and Dulcolax 10mg daily prior to admission with dose of mag citrate prior to admission
will need increased bowel regiment
on admission pt given Lactulose 20 gram x 2 dose ( due to get 2 more doses), senna 8.6 mg x 2 doses and Miralax this am
with large stool this am will hold proceeding to colyte prep
will continued Lactulose 2 more doses
change Miralax to BID and senna 17.2 gram at HS
will need to consider adding Linzess or Movanik with likely induced constipation
will get dietary consult with wt loss and add ensure TID
discussed with patient about dysphagia-- he has reviewed with Dr. Duran in past about esophageal stenting - reviewed risk/benefits but currently still tolerating liquids occasional soft solids and due to resume chemo
hx polyp in 2022 not resected -- has held follow up with progressive metastatic disease and continued oncology treatment
-
-
Thank you for consultation and allowing me to participate in the patient's care. Please call the transportation engineering technician GI physician during the after hours with any questions or concerns.
[2024-06-16 07:36] LABS: Hematocrit 35.7 % (39.0-52.0); Hemoglobin 11.2 g/dL (13.0-18.0); Mean Corp Hgb Conc. 31.4 g/dL (33.0-37.0); Mean Corpuscular Hgb 27.7 pg (27.0-31.0); Mean Corpuscular Volume 88.1 fL (80.0-94.0); Mean Platelet Volume 9.7 fL (7.4-10.4); Platelet Count 171 10^3/uL (130-400); Red Blood Cell Count 4.05 10^6/uL (4.70-6.10); Red Cell Dist. Width 15.6 % (11.5-14.5); White Blood Cell Count 8.8 10^3/uL (4.8-10.8)
[2024-06-16 07:52] VITALS: BP 106/72
[2024-06-16] MEDS: COLACE 100 MG PO (08:15)
[2024-06-16] MEDS: ELIQUIS 2.5 MG PO ×2 (08:16→19:53)
[2024-06-16 08:58] LABS: Blood Urea Nitrogen 23 mg/dl (9-20); Calcium 8.8 mg/dl (8.4-10.2); Carbon Dioxide 30 mmol/L (22-30); Chloride 101 mmol/L (98-107); Estimated Creatinine Clearance 64 ml/min; Glucose 110 mg/dl (70-99); Potassium 4.3 mmol/L (3.5-5.1); Sodium 137 mmol/L (135-145); eGFR > 60.00
[2024-06-16] MEDS: FLUSH (NSS) 1 FLUSH IV (11:27)
[2024-06-16] MEDS: ZOFRAN 4 MG IV (11:27)
[2024-06-16 11:40] VITALS: BMI 17.0
--- NOTE | 2024-06-16 12:03 | CM ---
Addendum entered by Arlen Haywood 06/16/24 13:58:
Per hospitalist, patient is stable for d/c but is requesting another day, however, patient has no further medical needs to remain in the hospital. D/c order has been placed
Original Note:
Patient seen bedside, initial assessment completed. Patient had a recent admission from 05/30-06/02 for constipation. Patient is a 64-year-old male with a history of relapsed stage III GE junction adenocarcinoma most recently treated with external beam
radiation therapy for relapse of the bony structures of the left shoulder on opiates for chronic pain who presents for constipation and abdominal pain and vomiting.
Per chart, patient lives alone in [facility]- 2 steps to enter the home. Patient is independent w/ ambulating and ADLs, no device required. Patient drives, no DME identified. Patient is currently not working and receives SSDI for income. Patient denies
SNF/VN hx, no current OP or home services at this time.
Address, points of contact and insurance verified
PCP: Fredi Young
Pharmacy: [facility]
Patient is currently admitted as OBS. OOBS form reviewed, patient given copy, copy placed on chart
Plan: Anticipate home; no needs
--- NOTE | 2024-06-16 13:30 | W.PN.HOSP.TC ---
Today's Communication/Plan
-
Discharge
Assessment / Plan
Assessment / Plan
Gen-AAOx3, NAD, cachectic
HEENT-NC, AT, anicteric, clear oral mm
Neck-supple
CV-reg, no M, +S1/S2
Lungs-clear B/L
Abd-soft, NT, ND
Ext-no edema
Musculoskeletal-no cyanosis, clubbing
Skin-warm and dry
Neuro-grossly non-focal
Psych-calm, cooperative
Opioid-induced constipation -improved with bowel regimen. Recommend high-fiber diet. Recommend MiraLAX 2 or 3 times daily on discharge. Supplement with Colace, Senokot, Dulcolax. Outpatient follow-up.
Hyperkalemia -present on admission, resolved.
Metastatic esophageal cancer -with recent malignant left pleural effusion, status post thoracentesis last hospitalization. Cytology positive. Follow-up with oncology after discharge.
Intractable pain due to malignancy -continue analgesics.
Chronic right hydronephrosis -due to obstructing right ureteral mass. Encouraged patient to follow-up with urology after discharge. He is known to Dr. Swanson.
History of DVT -on Eliquis.
Chronic anemia -due to malignancy. Hemoglobin at baseline.
DNR
Dispo -medically stable for discharge home today. Outpatient follow-up.
Patient feels that he wants to stay 1 more night because he feels weak. I explained to him that staying in the hospital 1 more night will make him feel weaker as he will just lay in bed. Recommend getting up and ambulating at home, exercise to
help improve his weakness. I see no medical reason to keep him 1 more night in the hospital. Discussed with patient as well as case management and nurse.
Anticipated Discharge: Today
Subjective/Interval History
-
Date of Service: June 16, 2024
Patient seen and examined. Complaining of weakness.
Objective Data
-
Labs:
Laboratory Results
06/16/24 06/16/24
06:26 08:08
WBC 8.8
Hgb 11.2 L
Hct 35.7 L
Plt Count 171
Sodium Cancelled 137
Potassium Cancelled 4.3
Chloride Cancelled 101
Carbon Dioxide Cancelled 30
BUN Cancelled 23 H
Creatinine Cancelled 0.9
Glucose Cancelled 110 H
Calcium Cancelled 8.8
Vital Signs:
Vital Signs
Temp Pulse Resp BP Pulse Ox
98 F 80 18 106/72 97
06/16/24 07:52 06/16/24 07:52 06/16/24 07:52 06/16/24 07:52 06/16/24 08:04
Review of Systems
-
History Source: Patient
All other systems: Reviewed and negative
--- NOTE | 2024-06-16 13:38 | W.DS.TRANS ---
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
-
Discharge Instructions:
Discharge Diagnosis/Procedures Opioid induced constipation
Diet Other diet
Additional Diets Minced & moist
Activity As tolerated
Driving Restrictions As prior to admission
Bathing Restrictions None
Instructions:
Stand-Alone Forms:
Changes to Home Medications: No
Discharge Medications:
DC Medications w/original date entered in [facility]
tamsulosin 0.4 mg capsule (Flomax) 0.4 mg PO HS Urinary Issue 02/04/24
apixaban 2.5 mg tablet (Eliquis) 2.5 mg PO BID Blood Clot Prevention/Tx 05/30/24
oxycodone 10 mg tablet 10 mg PO Q6H Pain 05/30/24
therapeutic multivitamin 1 tab PO DAILY Supplement 05/30/24
bisacodyl 5 mg tablet,delayed release 10 mg (2 x 5 mg) PO HS #60 tabs 06/02/24
morphine 30 mg tablet,extended release 30 mg PO Q12H Pain 06/15/24
polyethylene glycol 3350 17 gram oral powder packet 17 g PO BID #100 ea 06/16/24
sennosides 8.6 mg tablet (Gail-soraya) 17.2 mg (2 x 8.6 mg) PO HS #0 tabs 06/16/24
sennosides 8.6 mg-docusate sodium 50 mg tablet 1 tab PO BIDPRN PRN constipation #0 tabs 06/16/24
Home Medication Changes
Pending Results: No
[2024-06-16 15:01] VITALS: BP 134/80
--- NOTE | 2024-06-16 15:33 | PTCARENOTE ---
Pt AAO x3, SHEN; very weak. OOB to BR; tires easily. VSS. On room air- pulse ox 95%, no SOB. Abd soft, pt c/o lower abd tenderness; having loose BM's in BR. Pt with very poor PO intake, gisela small amts liquids only. Voiding in BR without
difficulty. Afebrile; skin ashen; intact. Pt for DC; refusing to leave; says he does not feel well enough to go home today; has no appetite; is afraid to be by himself d/t weakness. DR. Farfan and Matt Monson RN notified. Will continue to
monitor.
[2024-06-16] MEDS: MIRALAX 17 GRAMS PO (19:53)
[2024-06-16] MEDS: SENOKOT 17.2 MG PO (20:08)
[2024-06-16] MEDS: FLOMAX 0.4 MG PO (20:08)
[2024-06-16 23:55] VITALS: BP 127/70
[2024-06-17] MEDS: ROXICODONE 10 MG PO ×2 (06:05→13:14)
[2024-06-17 07:41] VITALS: BP 128/77
[2024-06-17] MEDS: ELIQUIS 2.5 MG PO (08:41)
[2024-06-17] MEDS: MIRALAX 17 GRAMS PO (08:41)
[2024-06-17] MEDS: MS CONTIN (EXTENDED RELEASE) 30 MG PO (08:41)
--- NOTE | 2024-06-17 12:11 | PTCARENOTE ---
Patient with medical clearance to be discharged yesterday. Patient did not feel safe returning home due to leg weakness. PT evaluation order entered by . NALLELY contacted and will evaluate patient today. fountain manager and director aware.
[2024-06-17 12:40] VITALS: BP 107/65; BP 127/74; PULSE 103; PULSE 88; O2SAT 97
--- NOTE | 2024-06-17 13:12 | W.PN.HOSP.TC ---
Today's Communication/Plan
-
Compression stockings
IV fluid bolus
Dulcolax suppository
PT consult
Assessment / Plan
Assessment / Plan
Gen-AAOx3, NAD, cachectic
HEENT-NC, AT, anicteric, clear oral mm
Neck-supple
CV-reg, no M, +S1/S2
Lungs-clear B/L
Abd-soft, NT, ND
Ext-no edema
Musculoskeletal-no cyanosis, clubbing
Skin-warm and dry
Neuro-grossly non-focal
Psych-calm, cooperative
Opioid-induced constipation -improved with bowel regimen. Recommend high-fiber diet. Recommend MiraLAX 2 or 3 times daily on discharge. Supplement with Colace, Senokot, Dulcolax. Get out of bed, ambulate. Outpatient follow-up.
Last bowel movement was yesterday, give a Dulcolax suppository now. Discussed with nursing.
Orthostatic hypotension -compression stockings ordered. IV fluid bolus. Enid dizzy with getting up with PT.
Hyperkalemia -present on admission, resolved.
Stage IV esophageal cancer -with recent malignant left pleural effusion, status post thoracentesis last hospitalization. Cytology positive. Follow-up with oncology after discharge.
Intractable pain due to malignancy -continue analgesics.
Chronic right hydronephrosis -due to obstructing right ureteral mass. Encouraged patient to follow-up with urology after discharge. He is known to Dr. Swanson.
History of DVT -on Eliquis.
Chronic anemia -due to malignancy. Hemoglobin at baseline.
DNR
Dispo -discharge if cleared by PT.
Anticipated Discharge: Today
Subjective/Interval History
-
Date of Service: June 17, 2024
Patient seen and examined. Complaining of constipation. Lack of appetite.
Objective Data
-
Vital Signs:
Vital Signs
Temp Pulse Resp BP Pulse Ox
97.0 F 84 13 128/77 96
06/17/24 07:41 06/17/24 07:41 06/17/24 07:41 06/17/24 07:41 06/17/24 12:04
I&O
06/16/24 06/17/24 06/18/24
06:59 06:59 06:59
Intake Total 2159 / 2159
Balance 2159 / 2159
Review of Systems
-
History Source: Patient
All other systems: Reviewed and negative
[2024-06-17] MEDS: NSS 500 IV (13:58)
[2024-06-17] MEDS: DULCOLAX 10 MG RECTAL (13:59)
--- NOTE | 2024-06-17 14:24 | PTCARENOTE ---
Patient orthostatic with complaints of being dizzy when PT examined patient. MD notified. IV team contacted to access right SQ port. 1 liter of NSS over an hour started. Knee high BRENDA stocking placed on patient. Dulcolax suppository given as
ordered. Notified PT of MD request to see patient after fluid bolus completed.
[2024-06-17 15:00] VITALS: BP 117/73
--- NOTE | 2024-06-17 15:40 | CM ---
Addendum entered by Arlen Haywood 06/17/24 16:21:
PT seen patient again. Walked halls. Not orthostatic at this time. Cleared.
CM offered [facility] for VN and home PT, patient agreeable
CM placed [facility] referral in [facility]
Patient will have a friend pick him up
Plan: Home w/ [facility]
Original Note:
Chart reviewed. Patient is not feeling well to d/c. Was stable yesterday for d/c, d/c order remains.
PT to re-assess after fluid bolus completed as earlier attempt patient was with symptomatic drop in BP deferred ambulation for safety
Patient will d/c once cleared by PT
[2024-06-17 15:46] VITALS: BP 117/73
--- NOTE | 2024-06-17 16:41 | PTCARENOTE ---
Addendum entered by Karli Byrd RN 06/17/24 16:56:
IVF bolus given and patient no longer orthostatic. Physical Therapy cleared patient. Patient walked in halls and is not lightheaded or dizzy. MD made aware. Discharge today.
Original Note:
Reviewed discharge instructions with patient. Patient verbalizes understanding of all teaching and denies questions at this time. Patient no longer orthostatic and cleared by Physical therapy for home discharge. Case management aware and came to the
bedside to see patient. Port de-accessed by IV team. Patient's friend will transport home.
[2024-06-17 16:42] VITALS: BP 119/76; BP 129/77; PULSE 86; O2SAT 97
== END 2024-06-17 17:06 | disposition home health service (06) ==
LOC: 4 EAST ACU 23:17
PROVIDERS: Emergency Medicine; Physician Assistant; Registered Nurse; ADMITTING PHYSICIAN Internal Medicine; ATTENDING PHYSICIAN Hospitalist; CONSULT PHYSICIAN Internal Medicine Gastroenterology; EMERGENCY PHYSICIAN Emergency Medicine; FAMILY PHYSICIAN Family Medicine
DX: K59.03 Drug induced constipation (principal); T40.2X5A Adverse effect of other opioids, initial encounter; R10.9 Unspecified abdominal pain; G89.3 Neoplasm related pain (acute) (chronic); R11.2 Nausea with vomiting, unspecified; C16.0 Malignant neoplasm of cardia; R06.09 Other forms of dyspnea; E87.5 Hyperkalemia; J91.0 Malignant pleural effusion; R79.89 Other specified abnormal findings of blood chemistry; C79.51 Secondary malignant neoplasm of bone; C78.00 Secondary malignant neoplasm of unspecified lung; R63.0 Anorexia; D72.829 Elevated white blood cell count, unspecified; F17.200 Nicotine dependence, unspecified, uncomplicated; E86.0 Dehydration; I10 Essential (primary) hypertension; N40.0 Benign prostatic hyperplasia without lower urinary tract symptoms; D63.8 Anemia in other chronic diseases classified elsewhere; I31.39 Other pericardial effusion (noninflammatory); N28.89 Other specified disorders of kidney and ureter; J98.4 Other disorders of lung; R64 Cachexia; R05.9 Cough, unspecified; N13.30 Unspecified hydronephrosis; I95.1 Orthostatic hypotension; R68.2 Dry mouth, unspecified; Z92.3 Personal history of irradiation; Z79.891 Long term (current) use of opiate analgesic; Z79.01 Long term (current) use of anticoagulants; Z86.0100 Personal history of colon polyps, unspecified; Z86.718 Personal history of other venous thrombosis and embolism; Z66 Do not resuscitate; Z68.1 Body mass index [BMI] 19.9 or less, adult; Z60.2 Problems related to living alone
CPT/HCPCS: 71046; 74177; 80048; 80053; 83690; 84484; 85025; 85027; 87070; 93005; 96361; 96374; 96375; 97116; 97163; 97530; 99285; G0378; Q9967

== ENCOUNTER → 2024-06-24 14:25 | Outpatient (REF) | payer OTHER, SELFPAY ==
[2024-06-24 14:39] VITALS: BP 135/83; BP_SYST 95
== END ==
LOC: RADI 14:25
PROVIDERS: ATTENDING PHYSICIAN Internal Medicine Hematology & Oncology; FAMILY PHYSICIAN Family Medicine
DX: J90 Pleural effusion, not elsewhere classified (principal); Z53.8 Procedure and treatment not carried out for other reasons
CPT/HCPCS: 76604

== ENCOUNTER 2024-07-04 23:03 | Inpatient (IN) | payer MEDICARE, OTHER, SELFPAY ==
[2024-07-04] VITALS (7 sets, daily range): BP systolic 113–131; BP diastolic 55–85; BMI 16.4
--- NOTE | 2024-07-04 17:03 | ED.GENMED ---
History of Present Illness
General
Chief Complaint: Breathing Problem
Source: patient
Exam Limitations: none
Time Seen by Provider: 07/04/24 16:59
History of Present Illness
History of Present Illness:
See MDM
Past History
Past History
ED Past Medical History: Cancer (esophageal cancer)
ED Past Surgical History: Orthopedic
Social History
Tobacco: Smoker
Alcohol: None
Drug: None
Personal:
Living: with family
Phy Exam
Physical Exam
Physical Exam:
See MDM
Scores
Heart Failure Risk
Heart Failure Risk Score: Not Applicable
Course
Orders/Labs/Results
Orders:
Orders
07/04/24 16:14
Electrocardiogram (*1) Urgent
Reason for Study: Chest Pain
07/04/24 16:15
EKG- Treatment ONCE
07/04/24 16:24
Complete Blood Count/With Diff Urgent
Comprehensive Metabolic Panel Urgent
07/04/24 17:03
CT Chest PE Study Urgent
Comment:
Reason For Exam: lung ca, left side chest pain and SOB
07/04/24 17:30
NT-proBNP Urgent
PTT Urgent
Prothrombin Time Urgent
Troponin I Urgent
07/04/24 20:13
Zosyn 3.375 grams IVPB NOW Piperacillin/Tazo 3.375 Gram [Zosyn] 3.375 gram in 50 ml IV NOW
07/04/24 20:14
*Vancomycin 1,500 mg Loading Dose(consider for 50-69 kg; MAX HD load) Vancomycin [Vancocin] 1,500 mg 0.9% Sodium Chloride 500 ml [Nss] 500 ml IV NOW
07/04/24 20:15
Blood Culture Q30M
MERARI Source: Blood/Venous
Specimen Description:
07/04/24 20:45
Blood Culture Q30M
MERARI Source: Blood/Venous
Specimen Description:
Abnormal Lab Results
07/04/24 07/04/24
16:24 17:30
WBC 4.2 L 10^3/uL
(4.8-10.8)
RBC 3.10 L 10^6/uL
(4.70-6.10)
Hgb 8.4 L g/dL
(13.0-18.0)
Hct 26.6 L %
(39.0-52.0)
MCHC 31.6 L g/dL
(33.0-37.0)
RDW 16.7 H %
(11.5-14.5)
Plt Count 54 L 10^3/uL
(130-400)
Abs Immat Gran (auto) 0.3 H 10^3/uL
(0-0.05)
Absolute Lymphs (auto) 0.2 L 10^3/uL
(1.2-3.4)
Absolute Monos (auto) 0.0 L 10^3/uL
(0.1-0.6)
Immature Gran % 6.4 H %
(0-0.5)
Neutrophils % 86.5 H %
(42.2-75.2)
Lymphocytes % 5.7 L %
(20.5-51.1)
Monocytes % 0.5 L %
(1.7-9.3)
PT 16.1 H Sec
(11.4-14.6)
APTT 38.6 H Sec
(23.4-35.0)
BUN 25 H mg/dl
(9-20)
Glucose 147 H mg/dl
(70-99)
Total Bilirubin 1.5 H mg/dl
(0.2-1.3)
AST 76 H U/L
(17-59)
Alkaline Phosphatase 400 H U/L
(38-126)
Albumin 3.2 L g/dl
(3.5-5.0)
07/04/24 16:24
07/04/24 16:24
Vital Signs
Initial and Last Documented VS:
Initial Vital Signs
Temp Pulse Resp BP Pulse Ox
97.7 F 135 20 131/70 92
07/04/24 16:11 07/04/24 16:11 07/04/24 16:11 07/04/24 16:11 07/04/24 16:11
Last Documented Vital Signs
Temp Pulse Resp BP Pulse Ox
97.7 F 98 20 113/55 96
07/04/24 16:11 07/04/24 20:06 07/04/24 20:06 07/04/24 20:06 07/04/24 20:06
MDM/Problems Addressed
Differential Diagnosis Includes:
HPI and MDM Narrative:
64-year-old male presenting for evaluation of shortness of breath. Patient does have active lung cancer. He complains of left-sided chest discomfort. Visiting nurse noted that he had a low pulse ox. He was sent in for evaluation. Given his
prior history, will obtain CT to rule out PE. He does state he has a history of left-sided pleural effusions and required drainage but states it is usually not painful
Physical exam
General: weak and frail
HEENT: protecting airway. Dry mucous membranes
Neck: appears supple
CV: No evidence of cyanosis. Tachycardic
Resp: No accessory muscle use. Poor air exchange throughout
Abd: Non-distended
Extremities: No deformities
Neuro: alert
Psych: Normal affect
Skin: Intact
Problems Addressed including Acute and Chronic Conditions affecting care:
1. Shortness of breath and chest pain
Acuity: acute
Prognosis: stable
Details: Given his history, will obtain CT to rule out PE
Updates
CT negative for pulmonary embolism but does show bilateral lower lobe pneumonia. Will start antibiotics and admit
Differential Diagnosis (but not limited to): PE, pulmonary edema, pneumonia, pneumothorax
Testing considered: Chest x-ray
Drug therapy (if applicable): OTC meds, please see d/c instruction regarding Rx drugs
Amount and/or Complexity of Data Reviewed
Clinical info obtained from: Patient
External data reviewed: N/A
Labs I independently reviewed (but not limited to): Anemia, thrombocytopenia
Radiology: The CT scan was personally and independently reviewed. In addition, official CT report reviewed.
Pulse Ox: not hypoxic
EKG independently reviewed: Sinus tachycardia, normal axis, no STEMI
Operator Technician: Sinus tachycardia
Critical Care: N/A
Risk of Complication:
Social Determinants of health: Good social support
Discussed with other providers: hospitalist
Escalation of Care includes Admit/Obs: Given immunocompromise state with bilateral pneumonia, will admit
Occasional wrong word or 'sound a like' substitutions may have occurred due to the inherent limitations of voice recognition software. Read the chart carefully and recognize, using context, where substitutions have occurred.
*Critical Care Note
Total Time (30-74mins, 75-104mins- exclusive of procedures): Not Applicable
ED Attending Note
-
Portions of this chart may have been created with voice recognition software.� Occasional wrong word or��sound alike� substitutions may have occurred due to the inherent limitations of voice recognition software.
Discharge Plan
Departure
Patient Disposition: Admit
Date of Disposition: 07/04/24
Time of Disposition: 20:16
Admit to: Med/Surg
Presentation/result/management discussed w/ accepting MD/DO: Hospitalist
Discharge Problem:
PNA (pneumonia), Thrombocytopenia, Anemia
Prescriptions:
No Action
tamsulosin [Flomax] 0.4 mg Capsule
0.4 mg PO HS
therapeutic multivitamin Tablet
1 tab PO DAILY
oxycodone 10 mg Tablet
10 mg PO Q6H
Eliquis 2.5 mg Tablet
2.5 mg PO BID
bisacodyl 5 mg Tablet,Delayed Release (Dr/Ec)
10 mg PO HS Qty: 60 0RF
morphine 30 mg Tablet Extended Release
30 mg PO Q12H
sennosides [Gail-soraya] 8.6 mg Tablet
17.2 mg PO HS Qty: 0 0RF
sennosides-docusate sodium 8.6-50 mg Tablet
1 tab PO BIDPRN PRN (Reason: constipation) Qty: 0 0RF
polyethylene glycol 3350 17 gram Powder In Packet
17 g PO BID Qty: 100 0RF
Referrals:
Fredi Young MD [Family Provider] -
Interventions
Interventions:
*Risk Screen - Suicide Last Done: 07/04/24 16:11
*General Assessment Last Done: 07/04/24 17:01
*Neglect/Abuse Screening Last Done: 07/04/24 17:01
*ED- Fall Risk Assessment Last Done: 07/04/24 17:01
*ED COVID-19 Vaccine History Last Done: 07/04/24 17:01
ED- Cardiac Assessment Last Done: 07/04/24 20:06
ED- Pulmonary Assessment Last Done: 07/04/24 20:06
Discharge Date and Time
Print Language: MAORI
[2024-07-04 17:16] LABS: ALT (SGPT) 35 U/L (0-50); AST (SGOT) 76 U/L (17-59); Albumin 3.2 g/dl (3.5-5.0); Alkaline Phosphatase 400 U/L (38-126); Blood Urea Nitrogen 25 mg/dl (9-20); Calcium 8.8 mg/dl (8.4-10.2); Carbon Dioxide 28 mmol/L (22-30); Chloride 99 mmol/L (98-107); Estimated Creatinine Clearance 79 ml/min; Glucose 147 mg/dl (70-99); Sodium 138 mmol/L (135-145); Total Bilirubin 1.5 mg/dl (0.2-1.3); Total Protein 7.1 g/dl (6.3-8.2); eGFR > 60.00
[2024-07-04 17:58] LABS: INR 1.26; PT 16.1 Sec (11.4-14.6)
[2024-07-04 17:59] LABS: APTT 38.6 Sec (23.4-35.0); NT-proBNP 1330 pg/ml
[2024-07-04 18:03] LABS: Troponin I 0.034 ng/ml
[2024-07-04 18:27] LABS: Hematocrit 26.6 % (39.0-52.0); Hemoglobin 8.4 g/dL (13.0-18.0); Mean Corp Hgb Conc. 31.6 g/dL (33.0-37.0); Mean Corpuscular Hgb 27.1 pg (27.0-31.0); Mean Corpuscular Volume 85.8 fL (80.0-94.0); Red Cell Dist. Width 16.7 % (11.5-14.5); White Blood Cell Count 4.2 10^3/uL (4.8-10.8)
[2024-07-04 18:36] LABS: % Basophils 0.7 % (0-2); % Eosinophils 0.2 % (0-6); % Immature Granulocytes 6.4 % (0-0.5); % Lymphocytes 5.7 % (20.5-51.1); % Monocytes 0.5 % (1.7-9.3); % Neutrophils 86.5 % (42.2-75.2); Absolute Immature Granulocytes 0.3 10^3/uL (0-0.05); Absolute Lymphocytes 0.2 10^3/uL (1.2-3.4); Absolute Neutrophils 3.7 10^3/uL (1.4-6.5); Nucleated Red Blood Cells % 0 % (-)
[2024-07-04 19:18] LABS: Mean Platelet Volume 10.1 fL (7.4-10.4); Platelet Count 54 10^3/uL (130-400)
[2024-07-04] MEDS: ZOSYN 50 IV (20:51)
[2024-07-04] MEDS: VANCOCIN 530 MG IV (20:54)
--- NOTE | 2024-07-04 21:54 | HPS.HSE ---
Addendum entered and electronically signed by Socrates Jenkins DO 07/04/24 23:32:
Patient seen and examined independently. Agree with findings and plan as set forth by BRAD See.
Patient is a 64y M with PMH significant for HTN, BPH and metastatic esophageal cancer on chemotherapy who presents to ED for evaluation of hypoxemia. Patient received his most recent chemo - of last week. He states that he has
been feeling more SOB since that time. He started with a hacking, non-productive cough today. VN was at his home today and recorded SpO2 in the 80s and advised that the patient present to the ED for evaluation.
Ass:
Bilateral Lower Lobe Pneumonia / Pneumonitis
Metastatic Esophageal Cancer on Chemotherapy
Pancytopenia secondary to chemotherapy
Benign Hypertension
BPH
Plan:
Admit for further evaluation and treatment.
Continue IV abx for pneumonia.
CT with bibasilar changes - coarse breath sounds mostly at R base on exam.
Follow for clinical improvement.
Supportive care, nebs, etc.
Follow cell counts for improvement / stability.
Original Note:
Family Physician
-
Family Physician: Fredi Young
Chief Complaint
-
hypoxia
History of Present Illness
Patient is a 64-year-old male with past medical history essential hypertension, BPH and metastatic esophageal cancer who presented to [facility] ED for evaluation of hypoxia. Patient reports that his visiting nurse came and patient SpO2 was 83-85% on room
air, he reports increased shortness of breath at rest recently and a mildly productive cough that started today. He denies any fevers, chills, chest pain, nausea, vomiting, diarrhea or urinary symptoms.
Medical History
Past Medical History
Past Medical History: Reports Other
Additional Past Medical History:
essential hypertension
BPH
Stage IV esophageal cancer
Past Surgical History: Reports Other
Additional Past Surgical History:
Rt knee arthroscopy 2020
URS/biopsy/stent 01/26/23
Rolo 10 days- exploratory on stomach, port placed 01/2023-02/2023
Social History
Tobacco: Non-smoker
Alcohol: None
Family History
Family History: Not pertinent
Allergies / Home Medications
Allergies reflects when Allergies were last updated in [employer].
Home Medications with original date entered in [employer]
Allergy/Medication List:
Allergies
Allergy/AdvReac Type Severity Reaction Status Date / Time
No Known Allergies Allergy Verified 07/04/24 16:10
Home Medications
tamsulosin 0.4 mg capsule (Flomax) 0.4 mg PO HS Urinary Issue 02/04/24
apixaban 2.5 mg tablet (Eliquis) 2.5 mg PO BID Blood Clot Prevention/Tx 05/30/24
oxycodone 10 mg tablet 10 mg PO Q6H Pain 05/30/24
morphine 30 mg tablet,extended release 30 mg PO Q12H Pain 06/15/24
bisacodyl 5 mg tablet,delayed release 10 mg PO HSPRN PRN constipation 07/04/24
olanzapine 5 mg tablet 5 mg PO HS 07/04/24
polyethylene glycol 3350 17 gram oral powder packet 17 g PO BIDPRN PRN constipation 07/04/24
Review of Systems
-
History Source: Patient
Constitutional: Reports Weight Loss and Fatigue
EENT: Reports No Symptoms
Respiratory: Reports Cough and Trouble Breathing (shortness of breath at rest )
Cardiac: Reports No Symptoms
Abdomen/GI: Reports No Symptoms
: Reports No Symptoms
Musculoskeletal: Reports No Symptoms
Skin: Reports No Symptoms
Neurological: Reports No Symptoms
Endocrine: Reports No Symptoms
Hematologic/Lymphatic: Reports No Symptoms
Psych: Reports No Symptoms
Physical Exam
Vital Signs
Vital Signs
Temp Pulse Resp BP Pulse Ox
97.7 F 98 20 113/55 96
07/04/24 16:11 07/04/24 20:06 07/04/24 20:06 07/04/24 20:06 07/04/24 20:06
Physical Exam
General: No Apparent Distress, Comfortable, Conversant, Appears Chronically Ill and Cachectic
HEENT: NormoCephalic, Moist mucous membranes, Atraumatic, [place] Conjunctivae, Nose Appears Normal and Ears Appear Normal
Respiratory: Rhonchi, Non Labored Respirations and Decreased Breath Sounds
Cardiac: S1/S2 and Regular Rhythm
Breast: Deferred by me
GI: Soft, Non Tender, Non Distended and Normal Bowel Sounds
Rectal: Deferred by Provider
Genito-urinary: Deferred by me
Musculoskeletal: No Clubbing, No Cyanosis and No Edema
Skin: IV/Catheter Site (left chest wall port )
Neuro: Awake, Alert, AO x 3 and Nonfocal/grossly intact
Psych: Calm and Intact Judgment/Insight
Laboratory Results
-
07/04/24 16:24
07/04/24 16:24
Laboratory Results
PT 16.1 Sec (11.4-14.6) H 07/04/24 17:30
INR 1.26 07/04/24 17:30
APTT 38.6 Sec (23.4-35.0) H 07/04/24 17:30
Total Bilirubin 1.5 mg/dl (0.2-1.3) H 07/04/24 16:24
AST 76 U/L (17-59) H 07/04/24 16:24
ALT 35 U/L (0-50) 07/04/24 16:24
Alkaline Phosphatase 400 U/L (38-126) H 07/04/24 16:24
Troponin I 0.034 ng/ml 07/04/24 17:30
Data Reviewed
-
CT Scan: Report Reviewed by me (Chest: 1. No evidence of pulmonary embolism. 2. Worsening bilateral lower lobe pneumonia/pneumonitis. Recommend follow-up imaging to rule out underlying recurrent neoplasm.)
Medical Tests (Nuc Med, Echo, EKG etc): Report Reviewed by me (EKG: SINUS TACHYCARDIA POSSIBLE INFERIOR INFARCT , AGE UNDETERMINED NONSPECIFIC ST ABNORMALITY)
Lab Data: Labs Reviewed by me (WBC 4.2, Neut 86.5, hgb 8.4, hct 26.6, plt 54)
Impression/Plan
-
IMPRESSION/PLAN:
#pneumonia
WBC 4.2, Neut 86.[address]: 1. No evidence of pulmonary embolism.
2. Worsening bilateral lower lobe pneumonia/pneumonitis. Recommend follow-up imaging to rule out underlying recurrent neoplasm.
EKG: SINUS TACHYCARDIA
POSSIBLE INFERIOR INFARCT , AGE UNDETERMINED
NONSPECIFIC ST ABNORMALITY
- Admit to med/surg
- IV antibiotics
- supportive care
#anemia
#thrombocytopenia
hgb 8.4, hct 26.6, plt 54
- monitor CBC
#BPH
- continue Flomax
#Stage IV esophageal cancer
follows with Dr. Augustin Bruner at [place], gets treatment at [place] with Dr Cormier
- continue Eliquis, morphine, olanzapine and oxycodone
- continue out patient chemo regimen
#essential hypertension
Code status: DNR
DVT prophylaxis: Eliquis
[2024-07-05] VITALS (7 sets, daily range): BP systolic 89–123; BP diastolic 57–79; PULSE 90–116; O2SAT 95; BMI 17.1
[2024-07-05] MEDS: ROXICODONE PO ×2 (00:22→18:01)
[2024-07-05] MEDS: MS CONTIN (EXTENDED RELEASE) PO (00:24)
[2024-07-05] MEDS: ZITHROMAX INFUSION 250 IV (00:45)
[2024-07-05] MEDS: ROCEPHIN 1000 MG IV (00:45)
[2024-07-05] MEDS: ROCEPHIN IV (02:14)
[2024-07-05] MEDS: ZITHROMAX INFUSION IV (02:14)
[2024-07-05] MEDS: STERILE WATER FOR INJECTION IV (02:14)
[2024-07-05] MEDS: ROXICODONE 10 MG PO ×3 (06:10→23:39)
[2024-07-05 06:13] LABS: Hematocrit 23.5 % (39.0-52.0); Hemoglobin 7.6 g/dL (13.0-18.0); Mean Corp Hgb Conc. 32.3 g/dL (33.0-37.0); Mean Corpuscular Hgb 27.1 pg (27.0-31.0); Mean Corpuscular Volume 83.9 fL (80.0-94.0); Mean Platelet Volume 9.6 fL (7.4-10.4); Platelet Count 33 10^3/uL (130-400); Red Cell Dist. Width 16.6 % (11.5-14.5); White Blood Cell Count 2.8 10^3/uL (4.8-10.8)
[2024-07-05 06:31] LABS: Blood Urea Nitrogen 22 mg/dl (9-20); Calcium 8.3 mg/dl (8.4-10.2); Carbon Dioxide 28 mmol/L (22-30); Chloride 103 mmol/L (98-107); Estimated Creatinine Clearance 79 ml/min; Glucose 96 mg/dl (70-99); Potassium 3.7 mmol/L (3.5-5.1); Sodium 139 mmol/L (135-145); eGFR > 60.00
--- NOTE | 2024-07-05 08:21 | VNURNOTE ---
Chart reviewed. Patient is current with [facility] nursing. Will continue to follow hospital course and DC plans.
[2024-07-05] MEDS: ELIQUIS 2.5 MG PO (08:40)
--- NOTE | 2024-07-05 08:49 | W.PN.HOSP.TC ---
Addendum entered and electronically signed by Ronnie Carias MD 07/05/24 15:17:
updated daughter
Original Note:
Today's Communication/Plan
-
IV Antibiotics. Hematology-Oncology consult
Assessment / Plan
Assessment / Plan
Physical Exam
General: No Apparent Distress, Comfortable, Conversant, Appears Chronically Ill and Cachectic
HEENT: NormoCephalic, Moist mucous membranes, Atraumatic, [place] Conjunctivae, Nose Appears Normal and Ears Appear Normal
Respiratory: Rhonchi, Non Labored Respirations and Decreased Breath Sounds
Cardiac: S1/S2 and Regular Rhythm
Breast: Deferred by me
GI: Soft, Non Tender, Non Distended and Normal Bowel Sounds
Rectal: Deferred by Provider
Genito-urinary: Deferred by me
Musculoskeletal: No Clubbing, No Cyanosis and No Edema
Skin: IV/Catheter Site (left chest wall port )
Neuro: Awake, Alert, AO x 3 and Nonfocal/grossly intact
Psych: Calm and Intact Judgment/Insight
A/P:
#pneumonia
WBC 4.2-->2.8, Neut 86.[address]: 1. No evidence of pulmonary embolism.
2. Worsening bilateral lower lobe pneumonia/pneumonitis. Recommend follow-up imaging to rule out underlying recurrent neoplasm.
EKG: SINUS TACHYCARDIA
POSSIBLE INFERIOR INFARCT , AGE UNDETERMINED
NONSPECIFIC ST ABNORMALITY
- Admit to med/surg
- IV antibiotics
- supportive care
#Pancytopenia
hgb 7.6, plt 33
- monitor CBC. Will request hematology consult
#BPH
- continue Flomax
#Stage IV esophageal cancer
follows with Dr. Augustin Bruner at [place], gets treatment at [place] with Dr Cormier
- continue Eliquis, morphine, olanzapine and oxycodone. Might consider holding Eliquis if worseing thrombocytopenia/bleeding but await Hem-Onc input
- continue out patient chemo regimen
#essential hypertension
Code status: DNR
DVT prophylaxis: Eliquis
Total time spent on today's encounter was 52 minutes which included time spent in counseling the patient/family regarding diagnosis and treatment plan as listed above, goals of care, and symptom management. Case was discussed with nursing staff,
specialists, and care coordinators/case management. All labs and imaging personally reviewed by me. Remainder the time spent in detailed review of previous records, lab data, imaging, and other medical provider documentation.
Anticipated Discharge: > 48 hours
Subjective/Interval History
-
Date of Service: July 05, 2024
patient has some cough and sob. C/o bleeding from mouth. No cp. Afebrile
Objective Data
-
Labs:
Laboratory Results
07/05/24
05:35
WBC 2.8 L
Hgb 7.6 L
Hct 23.5 L
Plt Count 33 L D
Sodium 139
Potassium 3.7
Chloride 103
Carbon Dioxide 28
BUN 22 H
Creatinine 0.7
Glucose 96
Calcium 8.3 L
Vital Signs:
Vital Signs
Temp Pulse Resp BP Pulse Ox
97.7 F 87 18 100/61 94
07/04/24 16:11 07/05/24 08:00 07/05/24 05:36 07/05/24 05:36 07/05/24 08:00
--- NOTE | 2024-07-05 11:38 | CON.ONC ---
Impression
Impression
metastatic esophageal cancer, on chemo
pancytopenia, from chemo
suspected pneumonia
h/o of DVT, on Eliquis outpatient
poor dentition, oozing gums/lips
Plan
Plan
abx per primary team
monitor CBC w/ diff daily, t/c GCSF if ANC < 1000
transfuse for hgb < 7, platelets < 15 or significant bleeding
I put Eliquis on hold with platelets > 50 and oral oozing
Further cancer treatment plans TBD
Will follow along
Patient History
History of Present Illness
64 yo M w/ metastatic esophageal cancer, recently initiated 5Fu/leucovorin chemo (06/28/24) after completing RT for painful shoulder met and recent thoracentesis showing metastatic pleural effusion, who was sent to the ER yesterday after calling our
office w/ dyspnea (pulse ox 86% at home), dizziness, chest pain, palpitations. He was sent to the ER. CT chest showed worsening pneumonia or pneumonitis. He was started on antibiotics, admitted to . Labs noted for pancytopenia, which has been a
recurrent issue for him on treatment, with bone marrow biopsy in 02/2024 showing no acute abnormalities. He's been on Eliquis 2.5mg following prior LE DVT, now has oral/gum bleeding and platelet count of 33. He notes weakness, not eating or drinking
well.
Past-Medical/Surgical History
Past Medical History
Past Medical History: Reports Other
Additional Past Medical History:
essential hypertension
BPH
Stage IV esophageal cancer
Past Surgical History: Reports Other
Additional Past Surgical History:
Rt knee arthroscopy 2020
URS/biopsy/stent 01/26/23
Rolo 10 days- exploratory on stomach, port placed 01/2023-02/2023
Social History
Tobacco: Non-smoker
Alcohol: None
Family History
Family History: Not pertinent
Patient Medication
�Medication �Instructions �Recorded �Confirmed �Last Taken �Type
tamsulosin 0.4 mg capsule (Flomax) 0.4 mg PO HS Urinary Issue 02/04/24 07/04/24 02/03/24 History
apixaban 2.5 mg tablet (Eliquis) 2.5 mg PO BID Blood Clot 05/30/24 07/04/24 Unknown History
Prevention/Tx
oxycodone 10 mg tablet 10 mg PO Q6H Pain 05/30/24 07/04/24 Unknown History
morphine 30 mg tablet,extended 30 mg PO Q12H Pain 06/15/24 07/04/24 Unknown History
release
bisacodyl 5 mg tablet,delayed 10 mg PO HSPRN PRN constipation 07/04/24 07/04/24 Unknown History
release
olanzapine 5 mg tablet 5 mg PO HS 07/04/24 07/04/24 Unknown History
polyethylene glycol 3350 17 gram 17 g PO BIDPRN PRN constipation 07/04/24 07/04/24 Unknown History
oral powder packet
Active Medications
Generic Name Dose Route Start Last Admin
Trade Name Freq PRN Reason Stop Dose Admin
Acetaminophen 650 mg 07/05/24 00:15
Acetaminophen 325 Mg Tablet PO 08/02/24 00:14
Q4HPRN PRN
mild pain/TUTTLE/temp> 100.4F
Albuterol Sulfate 2.5 mg 07/05/24 00:15
Albuterol Nebs 2.5 Mg/3 Ml Ampul INH
R Q4HPRN PRN
SOB
Protocol
Albuterol/Ipratropium 3 ml 07/05/24 11:35
Ipratropium 0.5/Albuterol 3 Mg (3 Ml Ampul) INH
R Q4HPRN PRN
sob
Protocol
Apixaban 2.5 mg 07/05/24 08:00 07/05/24 08:40
Apixaban (Eliquis) 2.5 Mg Tablet PO 08/02/24 07:59 2.5 mg
BID JOELLE Administration
Benzonatate 100 mg 07/05/24 11:35
Benzonatate 100 Mg Capsule PO 08/02/24 11:34
TIDPRN PRN
cough
Ceftriaxone Sodium 1,000 mg 07/05/24 02:00 07/05/24 02:14
Ceftriaxone 1000 Mg / 10 Ml Vial IV Not Given
Q24H JOLELE
Azithromycin 500 mg in 250 mls @ 250 mls/hr 07/05/24 02:00 07/05/24 02:14
Zithromax Infusion IV Not Given
Q24H JOELLE
Morphine Sulfate 30 mg 07/05/24 00:15 07/05/24 00:24
Morphine 30 Mg Extended Release Tablet PO 07/19/24 00:14 Not Given
Q12H JOELLE
Multi-Ingredient Mouthwash/Gargle 10 ml 07/05/24 12:00
Magic (Miracle) Mouthwash 90 Ml Bottle PO
6/D JOELLE
Olanzapine 5 mg 07/05/24 22:00
Olanzapine 5 Mg Tablet PO 08/02/24 21:59
HS JOELLE
Ondansetron HCl 4 mg 07/05/24 00:15
Ondansetron 4 Mg/2 Ml Vial IV 08/02/24 00:14
Q6HPRN PRN
nausea/vomiting
Oxycodone HCl 10 mg 07/05/24 00:15 07/05/24 06:10
Oxycodone 10 Mg Regular Release Tablet PO 07/19/24 00:14 10 mg
Q6H JOELLE Administration
Polyethylene Glycol 17 grams 07/05/24 00:15
Polyethylene Glycol Powder 17 Grams Packet PO 08/02/24 00:14
BIDPRN PRN
constipation
Sodium Chloride 0 flush 07/05/24 02:00
Sodium Chloride 0.9% (Flush) Syringe IV 08/02/24 01:59
PER PROTOCOL JOELLE
Sterile Water 10 ml 07/05/24 02:00 07/05/24 02:14
Sterile Water For Injection 10 Ml Vial IV 08/02/24 01:59 Not Given
Q24H JOELLE
Tamsulosin HCl 0.4 mg 07/05/24 22:00
Tamsulosin 0.4 Mg Capsule PO 08/02/24 21:59
HS JOELLE
Review of Systems
-
All Other Systems: Not reviewed unless documented
Physical Exam
-
General: Appears Chronically Ill
HEENT: Other (oozing blood from mouth, poor dentition)
Cardiology: Normal Sinus Rhythm
Pulmonary: Rales
GI: Soft
Musculoskeletal: No Clubbing, No Cyanosis and No Edema; Negative Edema, Right Lower Extrem or Edema, Left Lower Extrem
Neurology: Non Focal, No Lateralizing Symptoms and No Word Finding Difficulty
Skin: Warm and Dry
Psych: Calm
Labs
Lab Results
WBC 2.8 10^3/uL (4.8-10.8) L 07/05/24 05:35
RBC 2.80 10^6/uL (4.70-6.10) L 07/05/24 05:35
Hgb 7.6 g/dL (13.0-18.0) L 07/05/24 05:35
Hct 23.5 % (39.0-52.0) L 07/05/24 05:35
MCV 83.9 fL (80.0-94.0) 07/05/24 05:35
MCH 27.1 pg (27.0-31.0) 07/05/24 05:35
MCHC 32.3 g/dL (33.0-37.0) L 07/05/24 05:35
RDW 16.6 % (11.5-14.5) H 07/05/24 05:35
Plt Count 33 10^3/uL (130-400) L D 07/05/24 05:35
MPV 9.6 fL (7.4-10.4) 07/05/24 05:35
Abs Immat Gran (auto) 0.3 10^3/uL (0-0.05) H 07/04/24 16:24
Absolute Neuts (auto) 3.7 10^3/uL (1.4-6.5) 07/04/24 16:24
Absolute Lymphs (auto) 0.2 10^3/uL (1.2-3.4) L 07/04/24 16:24
Absolute Monos (auto) 0.0 10^3/uL (0.1-0.6) L 07/04/24 16:24
Absolute Eos (auto) 0.0 10^3/uL (0-0.7) 07/04/24 16:24
Absolute Basos (auto) 0.0 10^3/uL (0-0.2) 07/04/24 16:24
Immature Gran % 6.4 % (0-0.5) H 07/04/24 16:24
Neutrophils % 86.5 % (42.2-75.2) H 07/04/24 16:24
Lymphocytes % 5.7 % (20.5-51.1) L 07/04/24 16:24
Monocytes % 0.5 % (1.7-9.3) L 07/04/24 16:24
Eosinophils % 0.2 % (0-6) 07/04/24 16:24
Basophils % 0.7 % (0-2) 07/04/24 16:24
Creatinine 0.7 mg/dL (0.7-1.3) 07/05/24 05:35
Vital Signs
Vital Signs
Temp Pulse Resp BP Pulse Ox
97.9 F 109 20 108/66 91
07/05/24 10:08 07/05/24 10:08 07/05/24 10:08 07/05/24 10:08 07/05/24 10:08
[2024-07-05] MEDS: MS CONTIN (EXTENDED RELEASE) 30 MG PO ×2 (11:42→23:39)
[2024-07-05] MEDS: MAGIC OR MIRACLE MOUTHWASH 10 ML PO ×3 (11:59→21:08)
--- NOTE | 2024-07-05 14:00 | PTCARENOTE ---
Pt orthostatic w/ PT, see VS documentation, pt reported feeling lightheaded, recovered once seated. Dr Carias notified. 500 NS bolus given via L SQ Port.
[2024-07-05] MEDS: NSS 500 IV (14:30)
--- NOTE | 2024-07-05 14:37 | CM ---
Adm DX - pneumonia. PMH HTN, BPH and metastatic esophageal cancer on chemotherapy
Met with pt; initial assessment completed
Pt lives alone in a 1 story home; 2 JO ANN
Independent with ADL's, sister assists with shopping, meals, laundry as needed, no longer driving
DME - none
SNF - denies past hx
HH - current with [facility]
PCP - Fredi Young
Pharm - [facility]
Plan - TBD based on pt needs; anticipate home with [facility]
[2024-07-05] MEDS: MAGIC OR MIRACLE MOUTHWASH PO (17:29)
[2024-07-05] MEDS: ZYPREXA 5 MG PO (23:39)
[2024-07-05] MEDS: FLOMAX 0.4 MG PO (23:39)
[2024-07-06] VITALS (12 sets, daily range): BP systolic 99–130; BP diastolic 54–75
[2024-07-06] MEDS: STERILE WATER FOR INJECTION 10 ML IV (02:50)
[2024-07-06] MEDS: ROCEPHIN 1000 MG IV (02:50)
[2024-07-06] MEDS: ZITHROMAX INFUSION 250 IV (02:52)
[2024-07-06] MEDS: MAGIC OR MIRACLE MOUTHWASH PO ×2 (06:29→15:33)
[2024-07-06] MEDS: ROXICODONE 10 MG PO ×4 (06:29→23:17)
--- NOTE | 2024-07-06 08:02 | W.PN.ONC2 ---
Today's Communication / Plan
-
Continue current supportive care.
Await CBC from this AM
Impression
Impression
metastatic esophageal cancer, on chemo
pancytopenia, from chemo
suspected pneumonia
h/o of DVT, on Eliquis outpatient
poor dentition, oozing gums/lips
Plan
Plan
Seems improved a bit on ceftriaxone + azithromycin abx per primary team
monitor CBC w/ diff daily, t/c GCSF if ANC < 1000
transfuse for hgb < 7, platelets < 15 or significant bleeding
I put Eliquis on hold with platelets < 50 and oral oozing
Further cancer treatment plans TBD
Subjective/Objective
Chief Complaint
ACS Heme Onc Follow up
Subjective
Slightly better SOB on current antibiotic treatment.
Vital Signs:
Vital Signs
Temp Pulse Resp BP Pulse Ox
97.5 F 106 18 123/78 94
07/05/24 23:00 07/05/24 23:00 07/05/24 23:00 07/05/24 23:00 07/05/24 23:00
Lab Results:
Laboratory Data
WBC 2.8 10^3/uL (4.8-10.8) L 07/05/24 05:35
Hgb 7.6 g/dL (13.0-18.0) L 07/05/24 05:35
Plt Count 33 10^3/uL (130-400) L D 07/05/24 05:35
PT 16.1 Sec (11.4-14.6) H 07/04/24 17:30
INR 1.26 07/04/24 17:30
APTT 38.6 Sec (23.4-35.0) H 07/04/24 17:30
eGFR > 60.00 07/05/24 05:35
Physical Exam
HEENT: Other (poor dentition)
Cardiology: S1 and S2
Pulmonary: Clear
GI: Soft
--- NOTE | 2024-07-06 08:27 | W.PN.HOSP.TC ---
Addendum entered and electronically signed by Ronnie Carias MD 07/06/24 15:49:
Sepsis due to pneumonia, POA
Addendum entered and electronically signed by Ronnie Carias MD 07/06/24 15:47:
Severe protein calorie malnutrition
Original Note:
Today's Communication/Plan
-
Blood and platelet transfusion. IV antibiotic
Assessment / Plan
Assessment / Plan
Physical exam:
General: Acute on chronically ill
HEENT: Poor dentition and blotting in the mouth. Normocephalic, Atraumatic and dry Mucous Membranes
Respiratory: Clear to Auscultation; Negative Wheezes, Rales or Rhonchi
Cardiac: Regular Rhythm and S1/S2. Port in place
GI: Soft, Nontender and Nondistended
Musculoskeletal: No Clubbing, No Cyanosis and No Edema
Neuro: Awake, Alert and Oriented, no neurological deficits
Psych: Calm
A/P:
Community-acquired pneumonia:
Continue IV Rocephin and azithromycin
Blood cultures no growth
MRSA screen pending
Check sputum culture and urine strep and Legionella
COPD:
Not in exacerbation
Continue inhalers as needed
Hypotension:
Given bolus IV fluids yesterday
Since he will get transfusions today hold on fluids but we will reevaluate
Severe pancytopenia due to chemotherapy:
Hemoglobin 6 and platelet count 18 today
Discussed about risk and benefits of blood products transfusion today and patient agrees to transfuse.
Plan to transfuse packed RBCs and platelets
Continue to monitor hematopoietic cell count and bleeding
Magic mouthwash
Metastatic esophageal cancer:
Continue pain control, oxycodone 10 mg every 6 hours and MS Contin 30 mg every 12 hours and bowel regimen
Deferred chemotherapy timing to oncology
History of DVT:
Eliquis on hold due to severe anemia thrombocytopenia
BPH:
Continue Flomax
DVT prophylaxis:
SCDs
CODE STATUS:
DNR
Total time spent on today's encounter was 52 minutes which included time spent in counseling the patient/family regarding diagnosis and treatment plan as listed above, goals of care, and symptom management. Case was discussed with nursing staff,
specialists, and care coordinators/case management. All labs and imaging personally reviewed by me. Remainder the time spent in detailed review of previous records, lab data, imaging, and other medical provider documentation.
Anticipated Discharge: > 48 hours
Subjective/Interval History
-
Date of Service: July 06, 2024
Patient with significant fatigue. He continues oozing blood from mouth. No melena or hematemesis or hematuria or epistaxis.
Objective Data
-
Labs:
Laboratory Results
07/06/24
06:00
WBC Pending
Hgb Pending
Hct Pending
Plt Count Pending
Sodium Pending
Potassium Pending
Chloride Pending
Carbon Dioxide Pending
BUN Pending
Creatinine Pending
Glucose Pending
Calcium Pending
Vital Signs:
Vital Signs
Temp Pulse Resp BP Pulse Ox
97.5 F 106 18 123/78 94
07/05/24 23:00 07/05/24 23:00 07/05/24 23:00 07/05/24 23:00 07/05/24 23:00
I&O
07/05/24 07/06/24 07/07/24
06:59 06:59 06:59
Intake Total 740 / 740
Balance 740 / 740
[2024-07-06] MEDS: MAGIC OR MIRACLE MOUTHWASH 10 ML PO ×4 (09:20→21:36)
[2024-07-06 09:39] LABS: Hematocrit 19.2 % (39.0-52.0); Mean Corp Hgb Conc. 31.3 g/dL (33.0-37.0); Mean Corpuscular Hgb 26.7 pg (27.0-31.0); Mean Corpuscular Volume 85.3 fL (80.0-94.0); Red Blood Cell Count 2.25 10^6/uL (4.70-6.10); Red Cell Dist. Width 16.9 % (11.5-14.5)
--- NOTE | 2024-07-06 09:45 | PN.CDI ---
CDI
- -
CDI:
Physician Documentation Request
Admit Date: 07/04/24 23:03
Dear Doctor Carias,
Please review the following and provide your response in the progress notes.
Clinical Indicators:
- Patient admit with pneumonia, metastatic esophageal cancer
- WBC 2.0, HR 90-100s
- 500ml IVF
- IV abx ceftriaxone, vancocin, zithromax, zosyn
Please clarify which of the following most accurately describes the status of the patient's infection:
Sepsis due to pneumonia
Localized Infection Only, Pneumonia, Without Systemic Illness
- indicate the site/source, such as UTI, pneumonia etc.
Other
Use of terms such as suspected, likely, concern for, or probable (associated with a specific diagnosis that is being evaluated, monitored, or treated as if it exists) are acceptable and can be coded in the inpatient setting, when documented at the
time of discharge.
Thank you,
Consuelo Ann RN
CDI Specialist
Please use your independent medical judgment in providing your response.
[2024-07-06 10:01] LABS: Platelet Count 18 10^3/uL (130-400)
[2024-07-06 10:04] LABS: % Basophils 0.5 % (0-2); % Eosinophils 1.5 % (0-6); % Immature Granulocytes 1.5 % (0-0.5); % Lymphocytes 10.3 % (20.5-51.1); % Neutrophils 83.2 % (42.2-75.2); Absolute Lymphocytes 0.2 10^3/uL (1.2-3.4); Absolute Monocytes 0.1 10^3/uL (0.1-0.6); Absolute Neutrophils 1.7 10^3/uL (1.4-6.5); Nucleated Red Blood Cells % 0 % (-)
[2024-07-06 10:53] LABS: Blood Urea Nitrogen 19 mg/dl (9-20); Calcium 8.2 mg/dl (8.4-10.2); Carbon Dioxide 28 mmol/L (22-30); Chloride 105 mmol/L (98-107); Estimated Creatinine Clearance 80 ml/min; Glucose 110 mg/dl (70-99); Potassium 3.6 mmol/L (3.5-5.1); Sodium 139 mmol/L (135-145); eGFR > 60.00
[2024-07-06] MEDS: MS CONTIN (EXTENDED RELEASE) 30 MG PO ×2 (12:01→23:17)
--- NOTE | 2024-07-06 12:15 | CM ---
Patient seen bedside.
patient for blood products today.
Known to [facility], plan return.
Plan: home with [facility].
--- NOTE | 2024-07-06 14:28 | PN.CDI ---
CDI
- -
CDI:
Physician Documentation Request
Admit Date: 07/04/24 23:03
Dear Doctor Aretha,
Please review the following and provide your response in the progress notes.
Clinical Indicators:
- 07/05 Bearing[employer] note indicates severe protein calorie malnutrition
- Unintentional weight loss >7.5% in 3 months
- Nutrient intake </= 75% estimated energy needs, >/= 1 month
- Moderate subcutaneous loss over tricep, rib cage, orbital
Based on the above information and your assessment, which of the following most accurately represents the patient's nutritional status?
Severe protein calorie malnutrition
Other (please specify)
[place] Criteria ([facility] Hospitalist 2017)
2 or more criteria must be present for either
non severe or severe malnutrition
Note that the criteria differs related to the
presence of an acute or chronic illness
Acute Illness Chronic Illness
Energy Intake Non Severe: <75% for >7 days Non Severe: <75% for >1 month
Severe: <50% for >5 days Severe: <75% for >1 month
Weight Loss Non Severe: 1-2% over 1 week Non Severe: 5% over 1 month
5% over 1 month 7.5% over 3 months
7.5% over 3 months 10% over 6 months
1 year N/A 20% over 1 year
Severe: >2% over 1 week Severe: >5% over 1 month
>5% over 1 month >7.5% over 3 months
>7.5% over 3 months >10% over 6 months
1 year N/A >20% over 1 year
Body Fat Non Severe: Mild Decrease Non Severe: Mild Loss
Severe: Moderate Decrease Severe: Severe Loss
Muscle Mass Non Severe: Mild Decrease Non Severe: Mild Loss
Severe: Moderate Decrease Severe: Severe Loss
Fluid Accumulation Non Severe: Mild Accumulation Non Severe: Mild Accumulation
Severe: Moderate to severe Severe: Moderate to severe
accumulation accumulation
Reduced Associate Field Service Engineer Strength Non Severe: N/A Non Severe: N/A
Severe: Measurably reduced Severe: Measurably reduced
Additional criteria that can be used to Determine if Mild or Moderate Malnutrition ([employer] Manual 2018)
Mild Moderate Severe
Albumin gm/dl <3.0 gm/dl <2.5 gm/dl <2.0 gm/dl
Pre Albumin mg/dl <15 gm/dl <10 mg/dl <5.0 mg/dl
BMI <18.5 <17 <16
Use of terms such as suspected, likely, concern for, or probable (associated with a specific diagnosis that is being evaluated, monitored, or treated as if it exists) are acceptable and can be coded in the inpatient setting, when documented at the
time of discharge.
Thank you,
Consuelo Ann RN
CDI Specialist
Please use your independent medical judgment in providing your response.
[2024-07-06] MEDS: FLOMAX 0.4 MG PO (21:36)
[2024-07-06] MEDS: ZYPREXA 5 MG PO (21:36)
[2024-07-07] MEDS: STERILE WATER FOR INJECTION 10 ML IV (02:22)
[2024-07-07] MEDS: ROCEPHIN 1000 MG IV (02:22)
[2024-07-07] MEDS: ZITHROMAX INFUSION 250 IV (02:22)
[2024-07-07] MEDS: ROXICODONE 10 MG PO ×3 (06:25→17:34)
[2024-07-07] MEDS: MAGIC OR MIRACLE MOUTHWASH 10 ML PO ×2 (06:26→11:53)
[2024-07-07 07:00] VITALS: BP 106/63
[2024-07-07 08:00] LABS: Hematocrit 25.2 % (39.0-52.0); Hemoglobin 8.5 g/dL (13.0-18.0); Mean Corp Hgb Conc. 33.7 g/dL (33.0-37.0); Mean Corpuscular Hgb 28.7 pg (27.0-31.0); Mean Corpuscular Volume 85.1 fL (80.0-94.0); Mean Platelet Volume 9.8 fL (7.4-10.4); Platelet Count 26 10^3/uL (130-400); Red Blood Cell Count 2.96 10^6/uL (4.70-6.10); Red Cell Dist. Width 15.7 % (11.5-14.5); White Blood Cell Count 1.1 10^3/uL (4.8-10.8)
--- NOTE | 2024-07-07 08:01 | W.PN.ONC2 ---
Today's Communication / Plan
-
.
Impression
Impression
metastatic esophageal cancer, on chemo
pancytopenia, from chemo
suspected pneumonia
h/o of DVT, on Eliquis outpatient
poor dentition, oozing gums/lips
Plan
Plan
ceftriaxone + azithromycin abx per primary team
monitor CBC w/ diff daily
GCSF ordered. Will add to subsequent cycles of chemo
transfuse for hgb < 7, platelets < 15 or significant bleeding. s/p 2 U prbc 07/06, 1 U SDP 07/06
hold apixaban with platelets < 50 and oral oozing
BRENDA stockings
Further cancer treatment plans TBD
Subjective/Objective
Subjective
no new complaints
denies bleeding
encouraged OOB as tolerated
Vital Signs:
Vital Signs
Temp Pulse Resp BP Pulse Ox
98.6 F 93 18 119/73 93
07/06/24 23:20 07/06/24 23:20 07/06/24 23:20 07/06/24 23:20 07/07/24 01:20
Lab Results:
Laboratory Data
WBC 1.1 10^3/uL (4.8-10.8) L* 07/07/24 07:37
Hgb 8.5 g/dL (13.0-18.0) L D 07/07/24 07:37
Plt Count 26 10^3/uL (130-400) L* D 07/07/24 07:37
PT 16.1 Sec (11.4-14.6) H 07/04/24 17:30
INR 1.26 07/04/24 17:30
APTT 38.6 Sec (23.4-35.0) H 07/04/24 17:30
eGFR > 60.00 07/06/24 08:46
[2024-07-07 08:25] LABS: Blood Urea Nitrogen 17 mg/dl (9-20); Carbon Dioxide 31 mmol/L (22-30); Chloride 105 mmol/L (98-107); Estimated Creatinine Clearance 94 ml/min; Glucose 120 mg/dl (70-99); Potassium 3.8 mmol/L (3.5-5.1); Sodium 140 mmol/L (135-145); eGFR > 60.00
--- NOTE | 2024-07-07 08:45 | W.PN.HOSP.TC ---
Addendum entered and electronically signed by Ronnie Carias MD 07/07/24 12:27:
Immunocompromised patient
Original Note:
Today's Communication/Plan
-
IV antibiotics
Assessment / Plan
Assessment / Plan
Physical exam:
General: Acute on chronically ill
HEENT: Poor dentition and blotting in the mouth. Normocephalic, Atraumatic and dry Mucous Membranes
Respiratory: Clear to Auscultation; Negative Wheezes, Rales or Rhonchi
Cardiac: Regular Rhythm and S1/S2. Port in place
GI: Soft, Nontender and Nondistended
Musculoskeletal: No Clubbing, No Cyanosis and No Edema
Neuro: Awake, Alert and Oriented, no neurological deficits
Psych: Calm
A/P:
Community-acquired pneumonia:
Continue IV Rocephin and azithromycin
Blood cultures no growth
MRSA screen negative
Sputum culture pending
Urine strep and Legionella both negative
COPD:
Not in exacerbation
Continue inhalers as needed
Hypotension:
Improved
Severe pancytopenia due to chemotherapy:
Hemoglobin 6 up to 8 and platelet count 18 up to 26 today after transfusions
Continue to monitor hematopoietic cell count and bleeding
Magic mouthwash
Neutropenic precautions
Metastatic esophageal cancer:
Continue pain control, oxycodone 10 mg every 6 hours and MS Contin 30 mg every 12 hours and bowel regimen
Deferred chemotherapy timing to oncology
History of DVT:
Eliquis on hold due to severe anemia thrombocytopenia
BPH:
Continue Flomax
DVT prophylaxis:
SCDs
CODE STATUS:
DNR
Total time spent on today's encounter was 52 minutes which included time spent in counseling the patient/family regarding diagnosis and treatment plan as listed above, goals of care, and symptom management. Case was discussed with nursing staff,
specialists, and care coordinators/case management. All labs and imaging personally reviewed by me. Remainder the time spent in detailed review of previous records, lab data, imaging, and other medical provider documentation.
Anticipated Discharge: 24 - 48 hours
Subjective/Interval History
-
Date of Service: July 07, 2024
Patient feels less fatigue. Less oral bleeding. No chest pain or worsening shortness of breath. Afebrile
Objective Data
-
Labs:
Laboratory Results
07/07/24
07:37
WBC 1.1 L*
Hgb 8.5 L D
Hct 25.2 L
Plt Count 26 L* D
Sodium 140
Potassium 3.8
Chloride 105
Carbon Dioxide 31 H
BUN 17
Creatinine 0.6 L
Glucose 120 H
Calcium 8.0 L
Vital Signs:
Vital Signs
Temp Pulse Resp BP Pulse Ox
97.9 F 97 16 106/63 94
07/07/24 07:00 07/07/24 07:00 07/07/24 07:00 07/07/24 07:00 07/07/24 07:00
I&O
07/06/24 07/07/24 07/08/24
06:59 06:59 06:59
Intake Total 740 / 740 500 / 500
Balance 740 / 740 500 / 500
[2024-07-07] MEDS: MAGIC OR MIRACLE MOUTHWASH PO ×4 (09:42→21:37)
[2024-07-07 10:00] LABS: % Eosinophils 3.8 % (0-6); % Lymphocytes 17.1 % (20.5-51.1); % Monocytes 5.7 % (1.7-9.3); % Neutrophils 72.4 % (42.2-75.2); Absolute Lymphocytes 0.2 10^3/uL (1.2-3.4); Absolute Monocytes 0.1 10^3/uL (0.1-0.6); Absolute Neutrophils 0.8 10^3/uL (1.4-6.5); Nucleated Red Blood Cells % 0 % (-)
[2024-07-07 10:50] VITALS: BP 105/56; BP 71/44; BP 79/50; PULSE 104; PULSE 115; O2SAT 94
[2024-07-07] MEDS: MS CONTIN (EXTENDED RELEASE) 30 MG PO (11:52)
--- NOTE | 2024-07-07 12:20 | PN.CDI ---
CDI
- -
CDI:
Physician Documentation Request
Admit Date: 07/04/24 23:03
Dear Doctor,
Please review the following and provide your response in the progress notes.
Clinical Indicators:
- Patient admit for sepsis due to pneumonia
- 07/07 PN 'Severe pancytopenia due to chemotherapy'
- 07/07 WBC 1.1
Please clarify the diagnosis with the above findings:
Immunocompromised
Not immunocompromised
Other (please specify)
Use of terms such as suspected, likely, concern for, or probable (associated with a specific diagnosis that is being evaluated, monitored, or treated as if it exists) are acceptable and can be coded in the inpatient setting, when documented at the
time of discharge.
Thank you,
Consuelo Ann RN
CDI Specialist
Please use your independent medical judgment in providing your response.
--- NOTE | 2024-07-07 13:30 | WOUNDNOTE ---
[facility] RN Note: Patient seen during prevalence rounds. Patient has a coccyx dimple which is not a wound. R sacral/buttocks skin dry red abraded skin from friction, no ulcer. Protective silicone border foam maintained. Spoke with YESI Sun and
recommended an air overlay. Patient can turn self in bed. He is on an Advanta with Accumax mattress. He stated he doesn't attempt to get out of bed by himself. He is extremely thin. Heels off bed with air chair cushion. Instructed patient pressure
injury prevention measures.
[2024-07-07] MEDS: GRANIX 300 MCG SC (13:51)
[2024-07-07 15:00] VITALS: BP 98/58
--- NOTE | 2024-07-07 15:28 | CM ---
Patient seen bedside.
Patient seen by therapy, recommendation is for SNF vs home with homecare.
If patient is to resume chemo he cannot go to a skilled rehab.
Patient would prefer home with home care.
Plan: home with probable [facility]
[2024-07-07 16:51] VITALS: BP 130/94
[2024-07-07] MEDS: FLOMAX 0.4 MG PO (21:37)
[2024-07-07] MEDS: ZYPREXA 5 MG PO (21:37)
[2024-07-07 23:12] VITALS: BP 117/66
[2024-07-08] MEDS: MS CONTIN (EXTENDED RELEASE) 30 MG PO ×2 (00:16→12:22)
[2024-07-08] MEDS: ROXICODONE 10 MG PO ×4 (00:16→17:35)
[2024-07-08] MEDS: MAGIC OR MIRACLE MOUTHWASH 10 ML PO ×6 (00:22→21:52)
[2024-07-08] MEDS: ROCEPHIN 1000 MG IV (00:59)
[2024-07-08] MEDS: STERILE WATER FOR INJECTION 10 ML IV (00:59)
[2024-07-08] MEDS: ZITHROMAX INFUSION 250 IV (00:59)
[2024-07-08] MEDS: FLUSH (NSS) 1 FLUSH IV (01:00)
[2024-07-08 04:33] LABS: % Basophils 1.7 % (0-2); % Eosinophils 5.1 % (0-6); % Immature Granulocytes 1.7 % (0-0.5); % Lymphocytes 37.3 % (20.5-51.1); % Monocytes 10.2 % (1.7-9.3); Absolute Lymphocytes 0.2 10^3/uL (1.2-3.4); Absolute Monocytes 0.1 10^3/uL (0.1-0.6); Absolute Neutrophils 0.3 10^3/uL (1.4-6.5); Mean Corpuscular Hgb 27.3 pg (27.0-31.0); Mean Corpuscular Volume 85.3 fL (80.0-94.0); Mean Platelet Volume 10.6 fL (7.4-10.4); Nucleated Red Blood Cells % 0 % (-); Platelet Count 18 10^3/uL (130-400); Red Blood Cell Count 2.93 10^6/uL (4.70-6.10); Red Cell Dist. Width 15.6 % (11.5-14.5); White Blood Cell Count 0.6 10^3/uL (4.8-10.8)
--- NOTE | 2024-07-08 04:40 | PTCARENOTE ---
WBC- 0.6, platelet- 18, ANC- 0.3 this AM. Notified BRAD Brooks.
[2024-07-08 05:07] LABS: Blood Urea Nitrogen 16 mg/dl (9-20); Calcium 8.5 mg/dl (8.4-10.2); Carbon Dioxide 29 mmol/L (22-30); Chloride 104 mmol/L (98-107); Estimated Creatinine Clearance 80 ml/min; Glucose 114 mg/dl (70-99); Potassium 3.7 mmol/L (3.5-5.1); Sodium 139 mmol/L (135-145); eGFR > 60.00
[2024-07-08 07:46] VITALS: BP 96/55
--- NOTE | 2024-07-08 08:45 | W.PN.HOSP.TC ---
Addendum entered and electronically signed by Ronnie Carias MD 07/08/24 12:44:
Discussed with daughter over the phone today
Original Note:
Today's Communication/Plan
-
Antibiotics. Midodrine. Monitor hematopoietic cell counts.
Assessment / Plan
Assessment / Plan
Physical exam:
General: Acute on chronically ill
HEENT: Poor dentition and blotting in the mouth. Normocephalic, Atraumatic and dry Mucous Membranes
Respiratory: Clear to Auscultation; Negative Wheezes, Rales or Rhonchi
Cardiac: Regular Rhythm and S1/S2. Port in place
GI: Soft, Nontender and Nondistended
Musculoskeletal: No Clubbing, No Cyanosis and No Edema
Neuro: Awake, Alert and Oriented, no neurological deficits
Psych: Calm
A/P:
Community-acquired pneumonia:
Continue IV Rocephin and azithromycin
Blood cultures no growth
MRSA screen negative
Sputum culture pending
Urine strep and Legionella both negative
COPD:
Not in exacerbation
Continue inhalers as needed
Hypotension:
Improving
will start him on low dose midodrine
Severe pancytopenia due to chemotherapy:
Hemoglobin 8 and platelet count 18
WBC 0.6
Status post blood and platelet transfusions
On filgrastim
Continue to monitor hematopoietic cell count and bleeding
Magic mouthwash
Neutropenic precautions
Hematology consult appreciated
Metastatic esophageal cancer:
Continue pain control, oxycodone 10 mg every 6 hours and MS Contin 30 mg every 12 hours and bowel regimen
Deferred chemotherapy timing to oncology
History of DVT:
Eliquis on hold due to severe anemia thrombocytopenia
BPH:
Continue Flomax
DVT prophylaxis:
SCDs
CODE STATUS:
DNR
Total time spent on today's encounter was 52 minutes which included time spent in counseling the patient/family regarding diagnosis and treatment plan as listed above, goals of care, and symptom management. Case was discussed with nursing staff,
specialists, and care coordinators/case management. All labs and imaging personally reviewed by me. Remainder the time spent in detailed review of previous records, lab data, imaging, and other medical provider documentation.
Anticipated Discharge: > 48 hours
Subjective/Interval History
-
Date of Service: July 08, 2024
Patient feels tired overall also lightheaded. No cough shortness of breath or chest pain. Afebrile
Objective Data
-
Labs:
Laboratory Results
07/08/24
03:49
WBC 0.6 L*
Hgb 8.0 L
Hct 25.0 L
Plt Count 18 L* D
Sodium 139
Potassium 3.7
Chloride 104
Carbon Dioxide 29
BUN 16
Creatinine 0.7
Glucose 114 H
Calcium 8.5
Vital Signs:
Vital Signs
Temp Pulse Resp BP Pulse Ox
98.3 F 105 17 96/55 91
07/08/24 07:46 07/08/24 07:46 07/08/24 07:46 07/08/24 07:46 07/08/24 07:46
I&O
07/07/24 07/08/24 07/09/24
06:59 06:59 06:59
Intake Total 500 / 500 610 / 610
Balance 500 / 500 610 / 610
--- NOTE | 2024-07-08 09:33 | W.PN.ONC2 ---
Today's Communication / Plan
-
.
Impression
Impression
metastatic esophageal cancer, on chemo
pancytopenia, from chemo
CT with bilateral lower lobe pneumonia/pneumonitis, on room air and afebrile
h/o of DVT, on Eliquis outpatient
poor dentition, oozing gums/lips
Plan
Plan
abx for suspected PNA per primary team
monitor CBC w/ diff daily
continue GCSF intil ANC >1500. Will add to subsequent cycles of chemo
transfuse for hgb < 7, platelets < 15 or significant bleeding. s/p 2 U prbc 07/06, 1 U SDP 07/06
hold apixaban with platelets < 50 and oral oozing
BRENDA stockings
Further cancer treatment plans TBD
Subjective/Objective
Subjective
no new complaints
Vital Signs:
Vital Signs
Temp Pulse Resp BP Pulse Ox
98.3 F 105 17 96/55 91
07/08/24 07:46 07/08/24 07:46 07/08/24 07:46 07/08/24 07:46 07/08/24 07:46
Lab Results:
Laboratory Data
WBC 0.6 10^3/uL (4.8-10.8) L* 07/08/24 03:49
Hgb 8.0 g/dL (13.0-18.0) L 07/08/24 03:49
Plt Count 18 10^3/uL (130-400) L* D 07/08/24 03:49
PT 16.1 Sec (11.4-14.6) H 07/04/24 17:30
INR 1.26 07/04/24 17:30
APTT 38.6 Sec (23.4-35.0) H 07/04/24 17:30
eGFR > 60.00 07/08/24 03:49
Orders
Orders
Orders From Last 24 Hours
07/07/24 12:18
Tbo-Filgrastim [Granix] 300 mcg SC ONCE ONE
Teds [Anti-embolism (BRENDA) Hose] As Directed
07/08/24 22:00
Tbo-Filgrastim [Granix] 300 mcg SC HS
[2024-07-08] MEDS: ZITHROMAX 500 MG PO (11:00)
[2024-07-08] MEDS: NSS 1000 IV (12:24)
[2024-07-08] MEDS: ProAmatine 2.5 MG PO ×2 (14:41→17:36)
[2024-07-08 15:23] VITALS: BP 101/59
--- NOTE | 2024-07-08 16:42 | CM ---
Patient seen at bedside
Current with [facility]
PT SNF vs. Home PT
wants to go home with [facility]
Referral in [facility]
PLAN: Home with [facility], CM to continue to follow
[2024-07-08] MEDS: GRANIX 300 MCG SC (21:54)
[2024-07-08] MEDS: ZYPREXA 5 MG PO (21:55)
[2024-07-08] MEDS: FLOMAX 0.4 MG PO (21:55)
[2024-07-08 23:14] VITALS: BP 102/63
[2024-07-09] VITALS (7 sets, daily range): BP systolic 95–139; BP diastolic 60–81; PULSE 110; O2SAT 94
[2024-07-09] MEDS: MS CONTIN (EXTENDED RELEASE) 30 MG PO ×2 (00:40→11:30)
[2024-07-09] MEDS: ROXICODONE 10 MG PO ×3 (00:41→11:30)
[2024-07-09] MEDS: ROCEPHIN 1000 MG IV (02:36)
[2024-07-09] MEDS: STERILE WATER FOR INJECTION 10 ML IV (02:38)
[2024-07-09] MEDS: MAGIC OR MIRACLE MOUTHWASH 10 ML PO ×6 (05:52→20:59)
[2024-07-09 06:19] LABS: % Basophils 2.6 % (0-2); % Eosinophils 5.1 % (0-6); % Immature Granulocytes 5.1 % (0-0.5); % Lymphocytes 48.7 % (20.5-51.1); % Monocytes 23.1 % (1.7-9.3); % Neutrophils 15.4 % (42.2-75.2); Absolute Lymphocytes 0.2 10^3/uL (1.2-3.4); Absolute Monocytes 0.1 10^3/uL (0.1-0.6); Absolute Neutrophils 0.1 10^3/uL (1.4-6.5); Hematocrit 24.5 % (39.0-52.0); Mean Corp Hgb Conc. 32.7 g/dL (33.0-37.0); Mean Corpuscular Hgb 28.3 pg (27.0-31.0); Mean Corpuscular Volume 86.6 fL (80.0-94.0); Mean Platelet Volume 10.5 fL (7.4-10.4); Nucleated Red Blood Cells % 0 % (-); Platelet Count 15 10^3/uL (130-400); Red Blood Cell Count 2.83 10^6/uL (4.70-6.10); Red Cell Dist. Width 15.9 % (11.5-14.5); White Blood Cell Count 0.4 10^3/uL (4.8-10.8)
--- NOTE | 2024-07-09 06:39 | W.PN.ONC2 ---
Documented by User: BRAD Gabriel 07/09/24 10:17
Today's Communication / Plan
-
.
Impression
Impression
metastatic esophageal cancer, on chemo
pancytopenia, from chemo
CT with bilateral lower lobe pneumonia/pneumonitis, on room air and afebrile
h/o of DVT, on Eliquis outpatient
poor dentition, oozing gums/lips
Plan
Plan
abx for suspected PNA per primary team
monitor CBC w/ diff daily
continue GCSF intil ANC >1500. Claritin 10mg QD for bone pain associated with GCSF. Will add to subsequent cycles of chemo
transfuse for hgb < 7, platelets < 15 or significant bleeding. s/p 2 U prbc 07/06, 1 U SDP 07/06 -receiving 1U SDP today
hold apixaban with platelets < 50 and oral oozing
BRENDA stockings
Further cancer treatment plans TBD
Subjective/Objective
Subjective
no new complaints
Vital Signs:
Vital Signs
Temp Pulse Resp BP Pulse Ox
98.2 F 96 18 102/63 94
07/08/24 23:14 07/08/24 23:14 07/08/24 23:14 07/08/24 23:14 07/08/24 23:14
Lab Results:
Laboratory Data
WBC 0.4 10^3/uL (4.8-10.8) L* 07/09/24 05:37
Hgb 8.0 g/dL (13.0-18.0) L 07/09/24 05:37
Plt Count 15 10^3/uL (130-400) L* 07/09/24 05:37
PT 16.1 Sec (11.4-14.6) H 07/04/24 17:30
INR 1.26 07/04/24 17:30
APTT 38.6 Sec (23.4-35.0) H 07/04/24 17:30
eGFR > 60.00 07/08/24 03:49
Orders
Orders
Orders From Last 24 Hours
07/08/24 22:00
Tbo-Filgrastim [Granix] 300 mcg SC HS

Documented by User: Lenka Plascencia MD 07/09/24 19:40
Today's Communication / Plan
-
Suspect counts are not yet at teresa. Continue supportive care. Intent of care is palliative.
Plan
Plan
abx for suspected PNA per primary team
monitor CBC w/ diff daily
continue GCSF until ANC >1500. Claritin 10mg QD for bone pain associated with GCSF. Will add to subsequent cycles of chemo
transfuse for hgb < 7, platelets < 15 or significant bleeding. s/p 2 U prbc 07/06, 1 U SDP 07/06 -receiving 1U SDP today
hold apixaban with platelets < 50 and oral oozing
BRENDA stockings
Further cancer treatment plans TBD
Subjective/Objective
Chief Complaint
Med Onc follow up of metastatic esophageal cancer, chemotherapy-induced cytopenias
Subjective
Pt subdued and not himself today, less talkative.
Physical Exam
Awake, alert, appears chronically ill but non-toxic
HEENT: No Moist Mucous Membranes (Dry mm's. Poor dentition. )
Cardiology: Normal Sinus Rhythm
Pulmonary: Other (decreased on left)
GI: Soft and Other (non-tender); No Distended
Extremities: No C/C/E
Neuro: Other (Flat affect)
Review of Systems
Review of Systems
10-pt ROS negative in detail except as per HPI.
[2024-07-09] MEDS: CLARITIN 10 MG PO (07:30)
[2024-07-09] MEDS: ZITHROMAX 500 MG PO (07:30)
[2024-07-09] MEDS: ProAmatine 2.5 MG PO ×2 (07:31→12:58)
--- NOTE | 2024-07-09 09:23 | W.PN.HOSP.TC ---
Today's Communication/Plan
-
CT head. Antibiotics.
Assessment / Plan
Assessment / Plan
Physical exam:
General: Acute on chronically ill
HEENT: Poor dentition and blotting in the mouth. Normocephalic, Atraumatic and dry Mucous Membranes
Respiratory: Clear to Auscultation; Negative Wheezes, Rales or Rhonchi
Cardiac: Regular Rhythm and S1/S2. Port in place
GI: Soft, Nontender and Nondistended
Musculoskeletal: No Clubbing, No Cyanosis and No Edema
Neuro: Awake, Alert and Disoriented, no neurological deficits
Psych: Calm
A/P:
Community-acquired pneumonia:
Completed 5 days of azithromycin
Change IV Rocephin to oral Omnicef to complete 7 days course for 2 more days.
Blood cultures no growth
MRSA screen negative
Sputum culture pending
Urine strep and Legionella both negative
Delirium:
CT of the head given thrombocytopenia and anticoagulant make sure no intracranial bleed
Monitor behavioral and mental status
COPD:
Not in exacerbation
Continue inhalers as needed
Hypotension:
Improving
will start him on low dose midodrine
Severe pancytopenia due to chemotherapy:
Hemoglobin 8 and platelet count 15
WBC 0.4
Status post blood and platelet transfusions
On filgrastim and Claritin
Continue to monitor hematopoietic cell count and bleeding
Magic mouthwash
Neutropenic precautions
Hematology consult appreciated
Metastatic esophageal cancer:
Continue pain control, oxycodone 10 mg every 6 hours and MS Contin 30 mg every 12 hours and bowel regimen
Deferred chemotherapy timing to oncology
History of DVT:
Eliquis on hold due to severe anemia thrombocytopenia
BPH:
Continue Flomax
DVT prophylaxis:
SCDs
CODE STATUS:
DNR
Total time spent on today's encounter was 52 minutes which included time spent in counseling the patient/family regarding diagnosis and treatment plan as listed above, goals of care, and symptom management. Case was discussed with nursing staff,
specialists, and care coordinators/case management. All labs and imaging personally reviewed by me. Remainder the time spent in detailed review of previous records, lab data, imaging, and other medical provider documentation.
Anticipated Discharge: > 48 hours
Subjective/Interval History
-
Date of Service: July 09, 2024
Patient denies bleeding issues. Patient is confused on and off. Afebrile
Objective Data
-
Labs:
Laboratory Results
07/09/24
05:37
WBC 0.4 L*
Hgb 8.0 L
Hct 24.5 L
Plt Count 15 L*
Vital Signs:
Vital Signs
Temp Pulse Resp BP Pulse Ox
98.2 F 96 17 109/64 96
07/09/24 07:22 07/09/24 07:31 07/09/24 07:22 07/09/24 07:31 07/09/24 07:22
I&O
07/08/24 07/09/24 07/10/24
06:59 06:59 06:59
Intake Total 610 / 610 1226 / 1226
Balance 610 / 610 1226 / 1226
[2024-07-09] MEDS: NSS 1000 IV ×2 (11:29→16:31)
[2024-07-09] MEDS: OMNICEF 300 MG PO ×2 (12:58→20:59)
[2024-07-09] MEDS: SEROQUEL 25 MG PO (20:59)
[2024-07-09] MEDS: GRANIX 300 MCG SC (20:59)
--- NOTE | 2024-07-10 01:12 | W.PN.UPDATE ---
Update Note
Progress Note Update
Earlier this night patient requested to be allowed to leave. Daughter notified and talked to him on the phone and convinced him to stay.
[2024-07-10] MEDS: ROXICODONE 5 MG PO ×4 (03:38→22:29)
[2024-07-10] MEDS: MAGIC OR MIRACLE MOUTHWASH PO ×3 (05:14→16:15)
--- NOTE | 2024-07-10 07:16 | W.PN.HOSP.TC ---
Today's Communication/Plan
-
Antibiotic. Monitor hematopoietic cell count.
Assessment / Plan
Assessment / Plan
Physical exam:
General: Acute on chronically ill
HEENT: Poor dentition. Normocephalic, Atraumatic and Dry Mucous Membranes
Respiratory: Clear to Auscultation; Negative Wheezes, Rales or Rhonchi
Cardiac: Regular Rhythm and S1/S2. Port in place
GI: Soft, Nontender and Nondistended
Musculoskeletal: No Clubbing, No Cyanosis and No Edema
Neuro: Awake, Alert and Oriented, no neurological deficits
Psych: Calm
A/P:
Sepsis due to community-acquired pneumonia in the setting of immunocompromised individual:
Improving
Completed 5 days of azithromycin
Cont Omnicef to complete 7 days course for 1 more day.
Blood cultures no growth
MRSA screen negative
Sputum culture growing Marisol but this is usually a contaminant
Urine strep and Legionella both negative
Discussed with daughter prior
PT recommends skilled rehab but he wants to go home with . for D/C dispo.
Delirium:
Improving
CT of the head no acute intracranial abnormality
Holding high doses of narcotics but keeping him on as needed lower doses
Monitor behavioral and mental status
COPD:
Not in exacerbation
Continue inhalers as needed
Hypotension:
Improving
Stop IV fluid and reevaluate
Continue low dose midodrine
Check cortisol level in am
Hypokalemia:
Replete and trend
Severe pancytopenia due to chemotherapy:
Hemoglobin 7.5 and platelet count 25 today
WBC 0.8 today
Status post blood and platelet transfusions
On filgrastim and Claritin
Continue to monitor hematopoietic cell count and signs of bleeding
Magic mouthwash
Neutropenic precautions
Hematology consult appreciated
Metastatic esophageal cancer:
On hold oxycodone 10 mg every 6 hours and MS Contin 30 mg every 12 hours. Currently on oxycodone 5 mg every 4 hours as needed
Deferred chemotherapy timing to oncology
History of DVT:
Eliquis on hold due to severe anemia thrombocytopenia.
Plan to resume as soon as clear by hematology.
BPH:
Continue Flomax
DVT prophylaxis:
SCDs
CODE STATUS:
DNR
Total time spent on today's encounter was 52 minutes which included time spent in counseling the patient/family regarding diagnosis and treatment plan as listed above, goals of care, and symptom management. Case was discussed with nursing staff,
specialists, and care coordinators/case management. All labs and imaging personally reviewed by me. Remainder the time spent in detailed review of previous records, lab data, imaging, and other medical provider documentation.
Anticipated Discharge: 24 - 48 hours
Subjective/Interval History
-
Date of Service: July 10, 2024
Patient with less cough and sob. Afebrile. He is alert and oriented this morning.
Objective Data
-
Labs:
Laboratory Results
07/10/24
06:00
WBC Pending
Hgb Pending
Hct Pending
Plt Count Pending
Sodium Pending
Potassium Pending
Chloride Pending
Carbon Dioxide Pending
BUN Pending
Creatinine Pending
Glucose Pending
Calcium Pending
Total Bilirubin Pending
AST Pending
ALT Pending
Alkaline Phosphatase Pending
Vital Signs:
Vital Signs
Temp Pulse Resp BP Pulse Ox
98.9 F 116 18 95/63 95
07/09/24 23:46 07/09/24 23:46 07/09/24 23:46 07/09/24 23:46 07/09/24 23:46
I&O
07/09/24 07/10/24 07/11/24
06:59 06:59 06:59
Intake Total 1226 / 1226 1124 / 1364 240 / 240
Output Total 500 / 500
Balance 1226 / 1226 1124 / 864 -260 / -260
[2024-07-10 07:30] VITALS: BP 100/60
[2024-07-10] MEDS: CLARITIN 10 MG PO (08:50)
[2024-07-10] MEDS: ProAmatine 2.5 MG PO ×3 (08:50→17:32)
[2024-07-10] MEDS: OMNICEF 300 MG PO ×2 (08:50→20:20)
[2024-07-10] MEDS: NSS 1000 IV (08:51)
[2024-07-10 09:51] LABS: ALT (SGPT) 18 U/L (0-50); AST (SGOT) 26 U/L (17-59); Albumin 2.4 g/dl (3.5-5.0); Alkaline Phosphatase 149 U/L (38-126); Blood Urea Nitrogen 15 mg/dl (9-20); Carbon Dioxide 26 mmol/L (22-30); Chloride 105 mmol/L (98-107); Direct Bilirubin 0.4 mg/dl (0.0-0.4); Estimated Creatinine Clearance 80 ml/min; Glucose 107 mg/dl (70-99); Potassium 3.4 mmol/L (3.5-5.1); Sodium 139 mmol/L (135-145); Total Bilirubin 0.8 mg/dl (0.2-1.3); Total Protein 5.8 g/dl (6.3-8.2); eGFR > 60.00
[2024-07-10 09:56] LABS: % Basophils 1.3 % (0-2); % Eosinophils 5.3 % (0-6); % Lymphocytes 38.7 % (20.5-51.1); % Monocytes 30.7 % (1.7-9.3); Absolute Lymphocytes 0.3 10^3/uL (1.2-3.4); Absolute Monocytes 0.2 10^3/uL (0.1-0.6); Absolute Neutrophils 0.2 10^3/uL (1.4-6.5); Hematocrit 23.4 % (39.0-52.0); Hemoglobin 7.5 g/dL (13.0-18.0); Mean Corp Hgb Conc. 32.1 g/dL (33.0-37.0); Mean Corpuscular Hgb 27.8 pg (27.0-31.0); Mean Corpuscular Volume 86.7 fL (80.0-94.0); Mean Platelet Volume 9.2 fL (7.4-10.4); Nucleated Red Blood Cells % 0 % (-); Platelet Count 25 10^3/uL (130-400); Red Cell Dist. Width 15.9 % (11.5-14.5); White Blood Cell Count 0.8 10^3/uL (4.8-10.8)
[2024-07-10] MEDS: MAGIC OR MIRACLE MOUTHWASH 10 ML PO ×3 (10:52→20:21)
[2024-07-10 11:51] LABS: Absolute Neutrophils -Man Diff 0.1 10^3/uL (1.4-6.5); Band Neutrophils 8 % (0-3); Eosinophils 3 % (0-6); Lymphocytes 42 % (20-51); Monocytes 35 % (2-9); Segmented Neutrophils 12 % (42-75)
[2024-07-10 11:52] LABS: Platelets Checked YES
[2024-07-10 11:53] LABS: Acanthocytes FEW; Anisocytosis Slight; Normal RBC Morphology No; Ovalocytes FEW
[2024-07-10 11:54] LABS: Macrocytosis FEW; Total Cells Counted 100
[2024-07-10] MEDS: KCL 40 MEQ PO (12:36)
--- NOTE | 2024-07-10 13:05 | W.PN.ONC2 ---
Today's Communication / Plan
-
.
Impression
Impression
metastatic esophageal cancer, on chemo
pancytopenia, from chemo
CT with bilateral lower lobe pneumonia/pneumonitis, on room air and afebrile
h/o of DVT, on Eliquis outpatient
poor dentition, oozing gums/lips
Plan
Plan
abx for suspected PNA per primary team
monitor CBC w/ diff daily
continue GCSF until ANC >1500. Claritin 10mg QD for bone pain associated with GCSF. Will add GCSF to subsequent cycles of chemo
transfuse for hgb < 7, platelets < 15 or significant bleeding.
hold apixaban with platelets < 50 and oral oozing
BRENDA stockings
Will continue to check CBC Qmon & thurs for prn transfusion if remains transfusion dependent at discharge
Optimize performance status -encouraged OOB as tolerated
Further cancer treatment plans TBD
Subjective/Objective
Subjective
no new complaints
no bleeding
Vital Signs:
Vital Signs
Temp Pulse Resp BP Pulse Ox
97.4 F 91 16 100/60 94
07/10/24 07:30 07/10/24 08:50 07/10/24 07:30 07/10/24 08:50 07/10/24 07:30
Lab Results:
Laboratory Data
WBC 0.8 10^3/uL (4.8-10.8) L* 07/10/24 09:10
Hgb 7.5 g/dL (13.0-18.0) L 07/10/24 09:10
Plt Count 25 10^3/uL (130-400) L* D 07/10/24 09:10
PT 16.1 Sec (11.4-14.6) H 07/04/24 17:30
INR 1.26 07/04/24 17:30
APTT 38.6 Sec (23.4-35.0) H 07/04/24 17:30
eGFR > 60.00 07/10/24 09:10
[2024-07-10 16:00] VITALS: BP 105/65
[2024-07-10] MEDS: GRANIX 300 MCG SC (22:29)
[2024-07-10] MEDS: ZYPREXA 5 MG PO (22:30)
[2024-07-10 23:57] VITALS: BP 113/63
[2024-07-11] MEDS: ROXICODONE 5 MG PO ×4 (05:32→21:31)
[2024-07-11] MEDS: MAGIC OR MIRACLE MOUTHWASH 10 ML PO ×3 (05:33→17:25)
[2024-07-11 07:30] VITALS: BP 108/67
[2024-07-11] MEDS: CLARITIN 10 MG PO (08:19)
[2024-07-11] MEDS: ProAmatine 2.5 MG PO (08:20)
[2024-07-11] MEDS: OMNICEF 300 MG PO ×2 (08:20→21:18)
[2024-07-11] MEDS: TYLENOL 650 MG PO (08:24)
[2024-07-11 08:55] LABS: Hematocrit 23.4 % (39.0-52.0); Hemoglobin 7.5 g/dL (13.0-18.0); Mean Corp Hgb Conc. 32.1 g/dL (33.0-37.0); Mean Corpuscular Hgb 27.9 pg (27.0-31.0); Mean Platelet Volume 9.9 fL (7.4-10.4); Platelet Count 27 10^3/uL (130-400); Red Blood Cell Count 2.69 10^6/uL (4.70-6.10); White Blood Cell Count 2.4 10^3/uL (4.8-10.8)
--- NOTE | 2024-07-11 08:56 | W.PN.ONC2 ---
Today's Communication / Plan
-
.
Impression
Impression
metastatic esophageal cancer, on chemo
pancytopenia, from chemo recovering
CT with bilateral lower lobe pneumonia/pneumonitis, on room air and afebrile
h/o of DVT, on Eliquis outpatient
poor dentition, oozing gums/lips
Plan
Plan
abx for suspected PNA per primary team
monitor CBC w/ diff daily
continue GCSF until ANC >1500, last dose today. Claritin 10mg QD for bone pain associated with GCSF. Will add GCSF to subsequent cycles of chemo
transfuse for hgb < 7, platelets < 15 or significant bleeding.
hold apixaban with platelets < 50 and oral oozing
BRENDA stockings
weekly labs at ca
Optimize performance status -encouraged OOB as tolerated -agreeable to SNF or rehab to improve PS
Discussed discharge planning with primary service
Further cancer treatment plans TBD
Subjective/Objective
Subjective
no new complaints
Vital Signs:
Vital Signs
Temp Pulse Resp BP Pulse Ox
97.5 F 88 16 108/67 96
07/11/24 07:30 07/11/24 07:30 07/11/24 07:30 07/11/24 08:20 07/11/24 08:29
Lab Results:
Laboratory Data
WBC 2.4 10^3/uL (4.8-10.8) L* 07/11/24 08:11
Hgb 7.5 g/dL (13.0-18.0) L 07/11/24 08:11
Plt Count 27 10^3/uL (130-400) L* 07/11/24 08:11
PT 16.1 Sec (11.4-14.6) H 07/04/24 17:30
INR 1.26 07/04/24 17:30
APTT 38.6 Sec (23.4-35.0) H 07/04/24 17:30
eGFR > 60.00 07/10/24 09:10
[2024-07-11 09:11] LABS: ALT (SGPT) 19 U/L (0-50); AST (SGOT) 34 U/L (17-59); Albumin 2.2 g/dl (3.5-5.0); Alkaline Phosphatase 147 U/L (38-126); Blood Urea Nitrogen 12 mg/dl (9-20); Calcium 7.9 mg/dl (8.4-10.2); Carbon Dioxide 28 mmol/L (22-30); Chloride 105 mmol/L (98-107); Direct Bilirubin 0.3 mg/dl (0.0-0.4); Estimated Creatinine Clearance 80 ml/min; Glucose 102 mg/dl (70-99); Potassium 3.8 mmol/L (3.5-5.1); Sodium 139 mmol/L (135-145); Total Bilirubin 0.7 mg/dl (0.2-1.3); Total Protein 5.7 g/dl (6.3-8.2); eGFR > 60.00
[2024-07-11 10:23] LABS: Absolute Neutrophils -Man Diff 1.5 10^3/uL (1.4-6.5); Band Neutrophils 12 % (0-3); Eosinophils 4 % (0-6); Lymphocytes 11 % (20-51); Monocytes 15 % (2-9); Segmented Neutrophils 54 % (42-75)
[2024-07-11 10:24] LABS: Acanthocytes 1+; Anisocytosis 1+; Atypical Lymphocytes 1 %; Hypochromasia 1+; Metamyelocytes 3 % (-); Normal RBC Morphology Yes; Platelets Checked Yes; Polychromasia 1+
[2024-07-11 10:25] LABS: Total Cells Counted 100
[2024-07-11 10:46] LABS: Cortisol, Random 17.7 ug/dl; TSH Reflex To Free T4 5.07 uIU/ml (0.47-4.68)
--- NOTE | 2024-07-11 11:07 | W.PN.HOSP.TC ---
Today's Communication/Plan
-
Cleared for discharge to rehab
Assessment / Plan
Assessment / Plan
Impression:
Patient is a 64y M with PMH significant for HTN, BPH and metastatic esophageal cancer on chemotherapy who presents to ED for evaluation of hypoxemia. Patient received his most recent chemo - of last week before the admission, he
states that he has been feeling more SOB since that time. He started with a hacking, non-productive cough the day of admission, visiting nurse was at home and recorded SpO2 in the 80s and advised that the patient present to the ED for evaluation
In the ER patient found to have pneumonia and treated with IV antibiotic which currently switched to oral antibiotic.
Seen by oncology, patient was having pancytopenia, Eliquis held, seen by physical therapy recommended rehab.
Will be discharged to rehab once bed available, hold Eliquis on discharge and repeat CBC after 1 week, resume Eliquis if platelet >50,000.
Assessment/plan:
Sepsis due to community-acquired pneumonia in the setting of immunocompromised individual:
Improving
Completed 5 days of azithromycin
Cont Omnicef to complete 7 days course for 1 more day.
Blood cultures no growth
MRSA screen negative
Sputum culture growing Marisol but this is usually a contaminant
Urine strep and Legionella both negative
Discussed with daughter prior
PT recommends skilled rehab but he wants to go home with . CM for D/C dispo.
Acute metabolic encephalopathy/delirium
Improving
CT of the head no acute intracranial abnormality
Holding high doses of narcotics but keeping him on as needed lower doses
Monitor behavioral and mental status
COPD:
Not in exacerbation
Continue inhalers as needed
Hypotension:
Improving
Stop IV fluid and reevaluate
Continue low dose midodrine
Check cortisol level in am
Hypokalemia:
Replete and trend
Severe pancytopenia due to chemotherapy:
Hemoglobin 7.5 and platelet count 25 today
WBC 0.8 today
Status post blood and platelet transfusions
On filgrastim and Claritin
Continue to monitor hematopoietic cell count and signs of bleeding
Magic mouthwash
Neutropenic precautions
Hematology consult appreciated
07/11
WBC
(4.8-10.8�10^3/uL) 2.8�L
2.0�L*��
1.1�L*��
0.6�L*��
0.4�L*��
0.8�L*
2.4�L*��
RBC
(4.70-6.10�10^6/uL) 2.80�L
2.25�L
2.96�L
2.93�L
2.83�L
2.70�L
2.69�L
Hgb
(13.0-18.0�g/dL) 7.6�L
6.0�L*�?��
8.5�L�?��
8.0�L
8.0�L
7.5�L
7.5�L
Hct
(39.0-52.0�%) 23.5�L
19.2�L*��
25.2�L
25.0�L
24.5�L
23.4�L
23.4�L
MCV
(80.0-94.0�fL) 83.9
85.3
85.1
85.3
86.6
86.7
87.0
MCH
(27.0-31.0�pg) 27.1
26.7�L
28.7
27.3
28.3
27.8
27.9
MCHC
(33.0-37.0�g/dL) 32.3�L
31.3�L
33.7
32.0�L
32.7�L
32.1�L
32.1�L
RDW
(11.5-14.5�%) 16.6�H
16.9�H
15.7�H
15.6�H
15.9�H
15.9�H
16.0�H
Plt Count
(130-400�10^3/uL) 33�L�?��
18�L*�?��
26�L*�?��
18�L*�?��
15�L*��
25�L*�?��
27�L*��
Cleared for discharge as per hematology
Metastatic esophageal cancer:
On hold oxycodone 10 mg every 6 hours and MS Contin 30 mg every 12 hours. Currently on oxycodone 5 mg every 4 hours as needed
Deferred chemotherapy timing to oncology
History of DVT:
Eliquis on hold due to severe anemia thrombocytopenia.
Plan to resume as soon as clear by hematology.
BPH:
Continue Flomax
DVT prophylaxis:
SCDs
CODE STATUS:
DNR
Total time spent on today's encounter was 65 minutes which included time spent in counseling the patient/family regarding diagnosis and treatment plan as listed above, goals of care, and symptom management. Case was discussed with nursing staff,
specialists, and care coordinators/case management. All labs and imaging personally reviewed by me. Remainder the time spent in detailed review of previous records, lab data, imaging, and other medical provider documentation.
Anticipated Discharge: Today
Subjective/Interval History
-
Date of Service: July 11, 2024
Patient seen and examined at bedside, denies any chest pain.
Still with mild coughing and shortness of breath.
Platelet 27, cleared for discharge by oncology and hematology.
Objective Data
-
Labs:
Laboratory Results
07/11/24
08:11
WBC 2.4 L*
Hgb 7.5 L
Hct 23.4 L
Plt Count 27 L*
Sodium 139
Potassium 3.8
Chloride 105
Carbon Dioxide 28
BUN 12
Creatinine 0.7
Glucose 102 H
Calcium 7.9 L
Total Bilirubin 0.7
AST 34
ALT 19
Alkaline Phosphatase 147 H
Vital Signs:
Vital Signs
Temp Pulse Resp BP Pulse Ox
97.5 F 88 16 108/67 96
07/11/24 07:30 07/11/24 07:30 07/11/24 07:30 07/11/24 08:20 07/11/24 08:29
I&O
07/10/24 07/11/24 07/12/24
06:59 06:59 06:59
Intake Total 1124 / 1364 980 / 980
Output Total 800 / 800
Balance 1124 / 864 180 / 180
Physical Exam
-
General: Appears Chronically Ill
HEENT: Normocephalic, Atraumatic, Moist Mucous Membranes, No Ptosis, PERRLA and Nose Appears Normal
Respiratory: Rales, Rhonchi and Non Labored Respirations
Cardiac: Regular Rhythm and S1/S2
Breast: Deferred by me
GI: Soft, Nontender, Nondistended and Normal Bowel Sounds
Genito-urinary: No Costovertebral Tender
Musculoskeletal: No Clubbing, No Cyanosis and No Edema
Skin: Warm
Neuro: Awake, Alert, Oriented, AO x 3 and No Motor Deficits
Psych: Calm
Data Reviewed
-
Diagnostic Radiology: Image personally visualized and interpreted and Report Reviewed by me
CT Scan: Image personally visualized and interpreted and Report Reviewed by me
Ultrasound: Image personally visualized and interpreted and Report Reviewed by me
MRI: Image personally visualized and interpreted and Report Reviewed by me
Medical Tests (Nuc Med, Echo etc): Image personally visualized and interpreted and Report Reviewed by me
Labs: Labs Reviewed by me
Old Records: Reviewed
[2024-07-11] MEDS: GRANIX 300 MCG SC (11:10)
[2024-07-11 11:16] LABS: Free T4 0.84 ng/dl (0.78-2.19)
[2024-07-11] MEDS: MAGIC OR MIRACLE MOUTHWASH PO ×3 (11:27→21:18)
[2024-07-11 11:48] VITALS: BP 74/46; BP 96/70; PULSE 107; PULSE 88; O2SAT 94
[2024-07-11] MEDS: ProAmatine 5 MG PO ×2 (12:24→17:24)
[2024-07-11 15:30] VITALS: BP 117/60
[2024-07-11] MEDS: ZYPREXA 5 MG PO (21:18)
[2024-07-11 23:12] VITALS: BP 114/69
[2024-07-12] MEDS: ROXICODONE 5 MG PO ×5 (01:50→20:14)
[2024-07-12] MEDS: MAGIC OR MIRACLE MOUTHWASH PO ×2 (05:12→20:15)
[2024-07-12 06:21] LABS: Hematocrit 25.3 % (39.0-52.0); Hemoglobin 8.3 g/dL (13.0-18.0); Mean Corp Hgb Conc. 32.8 g/dL (33.0-37.0); Mean Corpuscular Hgb 28.3 pg (27.0-31.0); Mean Corpuscular Volume 86.3 fL (80.0-94.0); Mean Platelet Volume 9.6 fL (7.4-10.4); Platelet Count 28 10^3/uL (130-400); Red Blood Cell Count 2.93 10^6/uL (4.70-6.10); White Blood Cell Count 7.1 10^3/uL (4.8-10.8)
[2024-07-12 06:35] LABS: ALT (SGPT) 19 U/L (0-50); AST (SGOT) 28 U/L (17-59); Albumin 2.5 g/dl (3.5-5.0); Alkaline Phosphatase 158 U/L (38-126); Blood Urea Nitrogen 12 mg/dl (9-20); Calcium 8.1 mg/dl (8.4-10.2); Carbon Dioxide 23 mmol/L (22-30); Chloride 103 mmol/L (98-107); Direct Bilirubin 0.4 mg/dl (0.0-0.4); Estimated Creatinine Clearance 80 ml/min; Glucose 84 mg/dl (70-99); Sodium 137 mmol/L (135-145); Total Bilirubin 0.7 mg/dl (0.2-1.3); Total Protein 6.1 g/dl (6.3-8.2); eGFR > 60.00
[2024-07-12 07:40] VITALS: BP 115/68
[2024-07-12] MEDS: CLARITIN 10 MG PO (08:22)
[2024-07-12] MEDS: OMNICEF 300 MG PO ×2 (08:22→20:13)
[2024-07-12] MEDS: TYLENOL 650 MG PO ×2 (08:22→17:46)
[2024-07-12] MEDS: ProAmatine 5 MG PO ×3 (08:22→17:47)
[2024-07-12] MEDS: MAGIC OR MIRACLE MOUTHWASH 10 ML PO ×4 (10:14→17:47)
--- NOTE | 2024-07-12 10:44 | CM ---
PT rec SNF
Options reviewed with patient for SNF
Referrals to [facility] entered
PLAN: SNF, pending bed availability
--- NOTE | 2024-07-12 10:49 | W.PN.HOSP.TC ---
Today's Communication/Plan
-
Patient medically cleared for DC
Assessment / Plan
Assessment / Plan
Impression:
Patient is a 64y M with PMH significant for HTN, BPH and metastatic esophageal cancer on chemotherapy who presents to ED for evaluation of hypoxemia. Patient received his most recent chemo - of last week before the admission, he
states that he has been feeling more SOB since that time. He started with a hacking, non-productive cough the day of admission, visiting nurse was at home and recorded SpO2 in the 80s and advised that the patient present to the ED for evaluation
In the ER patient found to have pneumonia and treated with IV antibiotic which currently switched to oral antibiotic.
Seen by oncology, patient was having pancytopenia, Eliquis held, seen by physical therapy recommended rehab.
Will be discharged to rehab once bed available, hold Eliquis on discharge and repeat CBC after 1 week, resume Eliquis if platelet >50,000.
Assessment/plan:
Sepsis due to community-acquired pneumonia in the setting of immunocompromised individual:
Improving
Completed 5 days of azithromycin
Cont Omnicef to complete 7 days course for 1 more day.
Blood cultures no growth
MRSA screen negative
Sputum culture growing Marisol but this is usually a contaminant
Urine strep and Legionella both negative
Discussed with daughter prior
PT recommends skilled rehab but he wants to go home with . CM for D/C dispo..
- Patient medically cleared for discharge, pending place
Acute metabolic encephalopathy/delirium
Improving
CT of the head no acute intracranial abnormality
Holding high doses of narcotics but keeping him on as needed lower doses
Monitor behavioral and mental status
COPD:
Not in exacerbation
Continue inhalers as needed
Hypotension:
Improving
Stop IV fluid and reevaluate
Continue low dose midodrine
Check cortisol level in am
Hypokalemia:
Replete and trend
Severe pancytopenia due to chemotherapy:
Hemoglobin 7.5 and platelet count 25 today
WBC 0.8 today
Status post blood and platelet transfusions
On filgrastim and Claritin
Continue to monitor hematopoietic cell count and signs of bleeding
Magic mouthwash
Neutropenic precautions
Hematology consult appreciated
Cleared for discharge by hematology.
07/11
Improved today.
Metastatic esophageal cancer:
On hold oxycodone 10 mg every 6 hours and MS Contin 30 mg every 12 hours. Currently on oxycodone 5 mg every 4 hours as needed
Deferred chemotherapy timing to oncology
History of DVT:
Eliquis on hold due to severe anemia thrombocytopenia.
Plan to resume as soon as clear by hematology.
BPH:
Continue Flomax
CODE STATUS: DNR
DVT prophylaxis:SCD
Diet: Regular diet
Total time spent on today's encounter was 65 minutes which included time spent in counseling the patient/family regarding diagnosis and treatment plan as listed above, goals of care, and symptom management. Case was discussed with nursing staff,
specialists, and care coordinators/case management. All labs and imaging personally reviewed by me. Remainder the time spent in detailed review of previous records, lab data, imaging, and other medical provider documentation.
Anticipated Discharge: Today
Subjective/Interval History
-
Date of Service: July 12, 2024
Patient seen and examined at bedside, patient complaining of shortness of breath, dry cough, epigastric pain.
Still pending SNF placement.
Objective Data
-
Labs:
Laboratory Results
07/12/24
06:03
WBC 7.1
Hgb 8.3 L
Hct 25.3 L
Plt Count 28 L*
Sodium 137
Potassium 4.0
Chloride 103
Carbon Dioxide 23
BUN 12
Creatinine 0.7
Glucose 84
Calcium 8.1 L
Total Bilirubin 0.7
AST 28
ALT 19
Alkaline Phosphatase 158 H
Vital Signs:
Vital Signs
Temp Pulse Resp BP Pulse Ox
97.8 F 94 14 115/68 94
07/12/24 07:40 07/12/24 08:22 07/12/24 07:40 07/12/24 08:22 07/12/24 07:40
I&O
07/11/24 07/12/24 07/13/24
06:59 06:59 06:59
Intake Total 980 / 980 1040 / 1040
Output Total 800 / 800
Balance 180 / 180 1040 / 1040
Physical Exam
-
General: Appears Chronically Ill
HEENT: Normocephalic, Atraumatic, Moist Mucous Membranes, No Ptosis, PERRLA and Nose Appears Normal
Respiratory: Rales, Rhonchi and Non Labored Respirations
Cardiac: Regular Rhythm and S1/S2
Breast: Deferred by me
GI: Soft, Nontender, Nondistended and Normal Bowel Sounds
Genito-urinary: No Costovertebral Tender
Musculoskeletal: No Clubbing, No Cyanosis and No Edema
Skin: Warm
Neuro: Awake, Alert, Oriented, AO x 3 and No Motor Deficits
Psych: Calm
Data Reviewed
-
Diagnostic Radiology: Image personally visualized and interpreted and Report Reviewed by me
CT Scan: Image personally visualized and interpreted and Report Reviewed by me
Ultrasound: Image personally visualized and interpreted and Report Reviewed by me
MRI: Image personally visualized and interpreted and Report Reviewed by me
Medical Tests (Nuc Med, Echo etc): Image personally visualized and interpreted and Report Reviewed by me
Labs: Labs Reviewed by me
Old Records: Reviewed
[2024-07-12 15:16] VITALS: BP 108/69
[2024-07-12] MEDS: ZYPREXA 5 MG PO (20:13)
[2024-07-12 23:00] VITALS: BP 106/71
[2024-07-13] MEDS: ROXICODONE 5 MG PO ×3 (02:35→15:45)
[2024-07-13] MEDS: TYLENOL 650 MG PO ×2 (04:33→12:20)
[2024-07-13] MEDS: MAGIC OR MIRACLE MOUTHWASH PO ×3 (04:36→15:49)
[2024-07-13 05:15] LABS: Hematocrit 24.7 % (39.0-52.0); Hemoglobin 8.1 g/dL (13.0-18.0); Mean Corp Hgb Conc. 32.8 g/dL (33.0-37.0); Mean Corpuscular Hgb 28.1 pg (27.0-31.0); Mean Corpuscular Volume 85.8 fL (80.0-94.0); Mean Platelet Volume 9.4 fL (7.4-10.4); Platelet Count 32 10^3/uL (130-400); Red Blood Cell Count 2.88 10^6/uL (4.70-6.10); Red Cell Dist. Width 16.2 % (11.5-14.5); White Blood Cell Count 8.1 10^3/uL (4.8-10.8)
[2024-07-13 05:33] LABS: ALT (SGPT) 16 U/L (0-50); AST (SGOT) 27 U/L (17-59); Albumin 2.4 g/dl (3.5-5.0); Alkaline Phosphatase 154 U/L (38-126); Direct Bilirubin 0.3 mg/dl (0.0-0.4); Total Bilirubin 0.6 mg/dl (0.2-1.3); Total Protein 5.8 g/dl (6.3-8.2)
[2024-07-13 07:05] VITALS: BP 110/66
[2024-07-13] MEDS: ProAmatine 5 MG PO ×2 (08:30→12:21)
[2024-07-13] MEDS: CLARITIN 10 MG PO (08:30)
[2024-07-13] MEDS: OMNICEF 300 MG PO (08:31)
[2024-07-13] MEDS: MAGIC OR MIRACLE MOUTHWASH 10 ML PO (08:32)
--- NOTE | 2024-07-13 09:35 | CM ---
Addendum entered by Susanne Toussaint 07/13/24 10:29:
daughter Stephanie states would like [facility]
phone number given for [facility] for transport & time of 4pm
daughter will call - cost $90 - daughter agreeable
Notified Marcie at [facility] 4pm transport
Original Note:
Bed available at [facility]
Spoke with Marcie at [facility]
Spoke with daughter Stephanie & will get back to regarding transportion if [facility] or family to transport
Discussed cost of [facility]
PLAN: [facility]
Report #: [phone] 4th floor
Fax #: [phone]
--- NOTE | 2024-07-13 10:22 | W.PN.HOSP.TC ---
Today's Communication/Plan
-
Discharge today to SNF
Assessment / Plan
Assessment / Plan
Impression:
Patient is a 64y M with PMH significant for HTN, BPH and metastatic esophageal cancer on chemotherapy who presents to ED for evaluation of hypoxemia. Patient received his most recent chemo - of last week before the admission, he
states that he has been feeling more SOB since that time. He started with a hacking, non-productive cough the day of admission, visiting nurse was at home and recorded SpO2 in the 80s and advised that the patient present to the ED for evaluation
In the ER patient found to have pneumonia and treated with IV antibiotic which currently switched to oral antibiotic.
Seen by oncology, patient was having pancytopenia, Eliquis held, seen by physical therapy recommended rehab.
Will be discharged to rehab once bed available, hold Eliquis on discharge and repeat CBC after 1 week, resume Eliquis if platelet >50,000.
Assessment/plan:
Sepsis due to community-acquired pneumonia in the setting of immunocompromised individual:
Improving
Completed 5 days of azithromycin
Cont Omnicef to complete 7 days course for 1 more day.
Blood cultures no growth
MRSA screen negative
Sputum culture growing Marisol but this is usually a contaminant
Urine strep and Legionella both negative
Discussed with daughter prior
PT recommends skilled rehab but he wants to go home with . CM for D/C dispo..
- Patient medically cleared for discharge, pending placement.
Discharge today to SNF
Acute metabolic encephalopathy/delirium
Improving
CT of the head no acute intracranial abnormality
Holding high doses of narcotics but keeping him on as needed lower doses
Monitor behavioral and mental status
COPD:
Not in exacerbation
Continue inhalers as needed
Hypotension:
Improving
Stop IV fluid and reevaluate
Continue low dose midodrine
Check cortisol level in am
Hypokalemia:
Replete and trend
Severe pancytopenia due to chemotherapy:
Hemoglobin 7.5 and platelet count 25 today
WBC 0.8 today
Status post blood and platelet transfusions
On filgrastim and Claritin
Continue to monitor hematopoietic cell count and signs of bleeding
Magic mouthwash
Neutropenic precautions
Hematology consult appreciated
Cleared for discharge by hematology.
07/11
Improved today.
07/13
Continue to improve
Metastatic esophageal cancer:
On hold oxycodone 10 mg every 6 hours and MS Contin 30 mg every 12 hours. Currently on oxycodone 5 mg every 4 hours as needed
Deferred chemotherapy timing to oncology
History of DVT:
Eliquis on hold due to severe anemia thrombocytopenia.
Plan to resume as soon as clear by hematology.
BPH:
Continue Flomax
CODE STATUS: DNR
DVT prophylaxis:SCD
Diet: Regular diet
Total time spent on today's encounter was 65 minutes which included time spent in counseling the patient/family regarding diagnosis and treatment plan as listed above, goals of care, and symptom management. Case was discussed with nursing staff,
specialists, and care coordinators/case management. All labs and imaging personally reviewed by me. Remainder the time spent in detailed review of previous records, lab data, imaging, and other medical provider documentation.
Anticipated Discharge: Today
Subjective/Interval History
-
Date of Service: July 13, 2024
Patient seen and examined at bedside, shortness of breath and coughing improved, still with epigastric pain.
Plan to DC to SNF today.
Objective Data
-
Labs:
Laboratory Results
07/13/24
04:28
WBC 8.1
Hgb 8.1 L
Hct 24.7 L
Plt Count 32 L
Total Bilirubin 0.6
AST 27
ALT 16
Alkaline Phosphatase 154 H
Vital Signs:
Vital Signs
Temp Pulse Resp BP Pulse Ox
97.9 F 93 18 110/66 95
07/13/24 07:05 07/13/24 08:30 07/13/24 07:05 07/13/24 08:30 07/13/24 07:05
I&O
07/12/24 07/13/24 07/14/24
06:59 06:59 06:59
Intake Total 1040 / 1040 480 / 480
Balance 1040 / 1040 480 / 480
Physical Exam
-
General: Appears Chronically Ill
HEENT: Normocephalic, Atraumatic, Moist Mucous Membranes, No Ptosis, PERRLA and Nose Appears Normal
Respiratory: Rales, Rhonchi and Non Labored Respirations
Cardiac: Regular Rhythm and S1/S2
Breast: Deferred by me
GI: Soft, Nontender, Nondistended and Normal Bowel Sounds
Genito-urinary: No Costovertebral Tender
Musculoskeletal: No Clubbing, No Cyanosis and No Edema
Skin: Warm
Neuro: Awake, Alert, Oriented, AO x 3 and No Motor Deficits
Psych: Calm
Data Reviewed
-
Diagnostic Radiology: Image personally visualized and interpreted and Report Reviewed by me
CT Scan: Image personally visualized and interpreted and Report Reviewed by me
Ultrasound: Image personally visualized and interpreted and Report Reviewed by me
MRI: Image personally visualized and interpreted and Report Reviewed by me
Medical Tests (Nuc Med, Echo etc): Image personally visualized and interpreted and Report Reviewed by me
Labs: Labs Reviewed by me
Old Records: Reviewed
--- NOTE | 2024-07-13 10:24 | W.DCSUMMARY ---
Discharge Summary
Discharge Data
Date of Admission: 07/04/24
Date of Discharge: 07/13/24
-
Pending Results: No
Hospital Course
Hospital course
Patient is a 64y M with PMH significant for HTN, BPH and metastatic esophageal cancer on chemotherapy who presents to ED for evaluation of hypoxemia. Patient received his most recent chemo - of last week before the admission, he
states that he has been feeling more SOB since that time. He started with a hacking, non-productive cough the day of admission, visiting nurse was at home and recorded SpO2 in the 80s and advised that the patient present to the ED for evaluation
In the ER patient found to have pneumonia and treated with IV antibiotic which currently switched to oral antibiotic.
Seen by oncology, patient was having pancytopenia, Eliquis held, seen by physical therapy recommended rehab.
Will be discharged to rehab once bed available, hold Eliquis on discharge and repeat CBC after 1 week, resume Eliquis if platelet >50,000.
[facility]
Sepsis due to community-acquired pneumonia in the setting of immunocompromised individual:
Improving
Completed 5 days of azithromycin
Cont Omnicef to complete 7 days course for 1 more day.
Blood cultures no growth
MRSA screen negative
Sputum culture growing Marisol but this is usually a contaminant
Urine strep and Legionella both negative
Discussed with daughter prior
PT recommends skilled rehab but he wants to go home with HH. CM for D/C dispo..
- Patient medically cleared for discharge, pending placement.
Discharge today to SNF
Acute metabolic encephalopathy/delirium
Improving
CT of the head no acute intracranial abnormality
Holding high doses of narcotics but keeping him on as needed lower doses
Monitor behavioral and mental status
COPD:
Not in exacerbation
Continue inhalers as needed
Hypotension:
Improving
Stop IV fluid and reevaluate
Continue low dose midodrine
Check cortisol level in am
Hypokalemia:
Replete and trend
Severe pancytopenia due to chemotherapy:
Hemoglobin 7.5 and platelet count 25 today
WBC 0.8 today
Status post blood and platelet transfusions
On filgrastim and Claritin
Continue to monitor hematopoietic cell count and signs of bleeding
Magic mouthwash
Neutropenic precautions
Hematology consult appreciated
Cleared for discharge by hematology.
07/11
Improved today.
07/13
Continue to improve
Metastatic esophageal cancer:
On hold oxycodone 10 mg every 6 hours and MS Contin 30 mg every 12 hours. Currently on oxycodone 5 mg every 4 hours as needed
Deferred chemotherapy timing to oncology
History of DVT:
Eliquis on hold due to severe anemia thrombocytopenia.
Plan to resume as soon as clear by hematology.
BPH:
Continue Flomax
CODE STATUS: DNR
DVT prophylaxis:SCD
Diet: Regular diet
Total time spent on today's encounter was 40 minutes which included time spent in counseling the patient/family regarding diagnosis and treatment plan as listed above, goals of care, and symptom management. Case was discussed with nursing staff,
specialists, and care coordinators/case management. All labs and imaging personally reviewed by me. Remainder the time spent in detailed review of previous records, lab data, imaging, and other medical provider documentation.
Anticipated Discharge: Today
Discharge Plan
-
Patient Disposition: Halfway/SNF
Discharge Diagnosis/Procedures: Sepsis secondary to pneumonia, severe pancytopenia, metastatic esophageal cancer
Condition: Fair
Diet: As tolerated
Activity: With assistance
Other Services: PT and OT
Referrals:
Ethel Esteban MD [Active] - in three to four weeks
Fredi Young MD [Family Provider] -
Prescriptions:
New
ipratropium-albuterol 0.5 mg-3 mg(2.5 mg base)/3 mL Solution For Nebulization
3 ml inhalation R Q4HPRN PRN (Reason: sob) Qty: 0 0RF
loratadine 10 mg Tablet
10 mg PO DAILY Qty: 0 0RF
benzonatate 100 mg Capsule
100 mg PO TIDPRN PRN (Reason: cough) Qty: 0 0RF
acetaminophen 325 mg Tablet
650 mg PO Q4HPRN PRN (Reason: mild pain/TUTTLE/temp> 100.4F) Qty: 0 0RF
(DME) CBC
See Rx Instructions .ROUTE .MEDSUPPLY Qty: 10 0RF
Rx Instructions:
To be done every Thursday and , please call results to PCP and oncology
midodrine 5 mg tablet
5 mg PO TID Qty: 30 0RF
oxycodone 5 mg capsule
5 mg PO Q6H PRN (Reason: Pain) Qty: 4 0RF
Continued
tamsulosin [Flomax] 0.4 mg Capsule
0.4 mg PO HS
olanzapine 5 mg Tablet
5 mg PO HS
polyethylene glycol 3350 17 gram powder in packet
17 g PO BIDPRN PRN (Reason: constipation)
bisacodyl 5 mg tablet,delayed release (DR/EC)
10 mg PO HSPRN PRN (Reason: constipation)
Held
Eliquis 2.5 mg Tablet
2.5 mg PO BID
Hold Instructions: Hold until seen by oncology, until platelet level above 50,000
morphine 30 mg Tablet Extended Release
30 mg PO Q12H
Hold Instructions: Hold for confusion and resume as appropriate when back to baseline mental status
Discontinued
oxycodone 10 mg Tablet
10 mg PO Q6H
Discharge Orders:
Discharge Patient (As Directed); Ordered 07/13/24
Ordered By: Christopher Shaikh
Discharge Date and Time
Print Language: MALAY
--- NOTE | 2024-07-13 14:30 | WOUNDNOTE ---
SACRUM (blanchable red)
--- NOTE | 2024-07-13 14:34 | WOUNDNOTE ---
[facility] RN note: Patient seen during pressure injury prevention rounds with senior software analyst Emmanuelle. Patient's sacrum blanchable red with some dry intact abraded appearing skin. Silicone border foam changed (sacral shaped silicone border foam applied).
Skin on heels intact without redness. Patient is on a Progressa air bed. Patient can turn self in bed. Heel soft bed with air chair cushion. Discussed with YESI Bradshaw.
[2024-07-13 15:05] VITALS: BP 124/68
== END 2024-07-13 16:40 | DRG 871 ==
LOC: 3 WEST ACU 23:03
PROVIDERS: Hospitalist; Internal Medicine Hematology & Oncology; Nurse Practitioner Family; ADMITTING PHYSICIAN Hospitalist; ATTENDING PHYSICIAN General Practice; EMERGENCY PHYSICIAN Student in an Organized Health Care Education/Training Program; FAMILY PHYSICIAN Family Medicine; OTHER PHYSICIAN Internal Medicine Hematology & Oncology
PROC: 30243N1 Transfusion of Nonautologous Red Blood Cells into Central Vein, Percutaneous Approach (ICD-10-PCS; 2024-07-06)
PROC: 30243R1 Transfusion of Nonautologous Platelets into Central Vein, Percutaneous Approach (ICD-10-PCS; 2024-07-06)
DX: A41.9 Sepsis, unspecified organism (principal); D61.810 Antineoplastic chemotherapy induced pancytopenia; G93.41 Metabolic encephalopathy; J18.9 Pneumonia, unspecified organism; E43 Unspecified severe protein-calorie malnutrition; J44.0 Chronic obstructive pulmonary disease with (acute) lower respiratory infection; C15.9 Malignant neoplasm of esophagus, unspecified; D84.821 Immunodeficiency due to drugs; Z68.1 Body mass index [BMI] 19.9 or less, adult; E87.6 Hypokalemia; T45.1X5A Adverse effect of antineoplastic and immunosuppressive drugs, initial encounter; N40.0 Benign prostatic hyperplasia without lower urinary tract symptoms; Z66 Do not resuscitate; I10 Essential (primary) hypertension; R09.02 Hypoxemia; Z79.01 Long term (current) use of anticoagulants; Z86.718 Personal history of other venous thrombosis and embolism; Z79.891 Long term (current) use of opiate analgesic; K59.00 Constipation, unspecified; K06.8 Other specified disorders of gingiva and edentulous alveolar ridge
CPT/HCPCS: 70450; 71275; 80048; 80053; 80076; 82248; 82533; 83880; 84439; 84443; 84484; 85025; 85027; 85610; 85730; 86850; 86900; 86901; 86920; 87040; 87070; 87205; 87449; 87899; 93005; 97110; 97163; 97530; 99285; J1447; P9016; P9073; Q9967

== ENCOUNTER → 2024-07-18 11:26 | Outpatient (REF) | payer OTHER, MEDICARE, SELFPAY ==
[2024-07-18 12:21] LABS: % Basophils 0.5 % (0-2); % Eosinophils 0.5 % (0-6); % Immature Granulocytes 4.9 % (0-0.5); % Lymphocytes 9.5 % (20.5-51.1); % Monocytes 15.2 % (1.7-9.3); % Neutrophils 69.4 % (42.2-75.2); Absolute Immature Granulocytes 0.3 10^3/uL (0-0.05); Absolute Lymphocytes 0.6 10^3/uL (1.2-3.4); Absolute Monocytes 0.9 10^3/uL (0.1-0.6); Absolute Neutrophils 4.1 10^3/uL (1.4-6.5); Hematocrit 25.6 % (39.0-52.0); Hemoglobin 8.2 g/dL (13.0-18.0); Mean Corpuscular Hgb 28.5 pg (27.0-31.0); Mean Corpuscular Volume 88.9 fL (80.0-94.0); Mean Platelet Volume 10.4 fL (7.4-10.4); Nucleated Red Blood Cells % 0 % (-); Platelet Count 63 10^3/uL (130-400); Red Blood Cell Count 2.88 10^6/uL (4.70-6.10); Red Cell Dist. Width 17.6 % (11.5-14.5); White Blood Cell Count 5.9 10^3/uL (4.8-10.8)
[2024-07-18 13:01] LABS: ALT (SGPT) 18 U/L (0-50); AST (SGOT) 30 U/L (17-59); Albumin 2.9 g/dl (3.5-5.0); Alkaline Phosphatase 194 U/L (38-126); Blood Urea Nitrogen 17 mg/dl (9-20); Calcium 8.4 mg/dl (8.4-10.2); Carbon Dioxide 26 mmol/L (22-30); Chloride 99 mmol/L (98-107); Glucose 94 mg/dl (70-99); Sodium 135 mmol/L (135-145); Total Bilirubin 0.7 mg/dl (0.2-1.3); Total Protein 7.4 g/dl (6.3-8.2); eGFR > 60.00
== END ==
LOC: OLABP 11:26
PROVIDERS: ATTENDING PHYSICIAN Family Medicine
DX: G92.8 Other toxic encephalopathy (principal); A41.9 Sepsis, unspecified organism; J18.9 Pneumonia, unspecified organism; D84.9 Immunodeficiency, unspecified; E43 Unspecified severe protein-calorie malnutrition; I10 Essential (primary) hypertension; D61.810 Antineoplastic chemotherapy induced pancytopenia
CPT/HCPCS: 36415; 80053; 85025

== ENCOUNTER → 2024-07-25 09:08 | Outpatient (REF) | payer OTHER, MEDICARE, SELFPAY ==
[2024-07-25 11:04] LABS: % Basophils 0.2 % (0-2); % Eosinophils 0.1 % (0-6); % Immature Granulocytes 0.9 % (0-0.5); % Lymphocytes 5.6 % (20.5-51.1); % Monocytes 11.8 % (1.7-9.3); % Neutrophils 81.4 % (42.2-75.2); Absolute Immature Granulocytes 0.1 10^3/uL (0-0.05); Absolute Lymphocytes 0.5 10^3/uL (1.2-3.4); Absolute Monocytes 1.1 10^3/uL (0.1-0.6); Absolute Neutrophils 7.6 10^3/uL (1.4-6.5); Hematocrit 23.2 % (39.0-52.0); Hemoglobin 7.2 g/dL (13.0-18.0); Mean Corpuscular Hgb 28.2 pg (27.0-31.0); Mean Platelet Volume 9.8 fL (7.4-10.4); Nucleated Red Blood Cells % 0 % (-); Platelet Count 124 10^3/uL (130-400); Red Blood Cell Count 2.55 10^6/uL (4.70-6.10); Red Cell Dist. Width 19.5 % (11.5-14.5); White Blood Cell Count 9.3 10^3/uL (4.8-10.8)
[2024-07-25 12:05] LABS: ALT (SGPT) 12 U/L (0-50); AST (SGOT) 20 U/L (17-59); Albumin 2.9 g/dl (3.5-5.0); Alkaline Phosphatase 173 U/L (38-126); Blood Urea Nitrogen 30 mg/dl (9-20); Calcium 9.3 mg/dl (8.4-10.2); Carbon Dioxide 32 mmol/L (22-30); Chloride 102 mmol/L (98-107); Glucose 98 mg/dl (70-99); Potassium 4.4 mmol/L (3.5-5.1); Sodium 139 mmol/L (135-145); Total Bilirubin 0.6 mg/dl (0.2-1.3); Total Protein 7.4 g/dl (6.3-8.2); eGFR > 60.00
== END ==
LOC: OLABP 09:08
PROVIDERS: ATTENDING PHYSICIAN Family Medicine
DX: C15.9 Malignant neoplasm of esophagus, unspecified (principal)
CPT/HCPCS: 36415; 74221; 80053; 85025

== ENCOUNTER → 2024-07-26 11:53 | Outpatient (REF) | payer OTHER, MEDICARE, SELFPAY ==
[2024-07-26 13:12] LABS: Hematocrit 24.3 % (39.0-52.0); Hemoglobin 7.4 g/dL (13.0-18.0)
[2024-07-26 13:23] LABS: ALT (SGPT) 11 U/L (0-50); AST (SGOT) 19 U/L (17-59); Albumin 3.1 g/dl (3.5-5.0); Alkaline Phosphatase 177 U/L (38-126); Blood Urea Nitrogen 27 mg/dl (9-20); Calcium 8.9 mg/dl (8.4-10.2); Carbon Dioxide 28 mmol/L (22-30); Chloride 102 mmol/L (98-107); Glucose 89 mg/dl (70-99); Potassium 4.3 mmol/L (3.5-5.1); Sodium 142 mmol/L (135-145); Total Bilirubin 0.5 mg/dl (0.2-1.3); Total Protein 7.8 g/dl (6.3-8.2); eGFR > 60.00
== END ==
LOC: OLABP 11:53
PROVIDERS: ATTENDING PHYSICIAN Family Medicine
DX: G92.8 Other toxic encephalopathy (principal); A41.9 Sepsis, unspecified organism; J18.9 Pneumonia, unspecified organism; E43 Unspecified severe protein-calorie malnutrition; I10 Essential (primary) hypertension; D61.810 Antineoplastic chemotherapy induced pancytopenia; C15.9 Malignant neoplasm of esophagus, unspecified; D40.0 Neoplasm of uncertain behavior of prostate; D64.9 Anemia, unspecified; B37.1 Pulmonary candidiasis
CPT/HCPCS: 36415; 80053; 85014; 85018

== ENCOUNTER → 2024-08-01 12:47 | Outpatient (REF) | payer OTHER, MEDICARE, SELFPAY ==
[2024-08-01 14:08] LABS: Urine Albumin 2+ (Neg - Trace); Urine Bilirubin Negative (Negative); Urine Character Cloudy (Clear); Urine Color Yellow; Urine Glucose Negative (Negative); Urine Ketone Negative (Negative); Urine Leukocyte 1+ (Negative); Urine Nitrite Negative (Negative); Urine Occult Blood 1+ (Negative); Urine Specific Gravity 1.025 (<1.030); Urine Urobilinogen Negative (Neg - 1+)
[2024-08-01 14:21] LABS: Urine Bacteria Many (Negative); Urine Red Blood Cell 0-2 /HPF (0-2); Urine Squamous Cell 0-2 /LPF (Few); Urine White Cell 0-2 /HPF (0-5)
== END ==
LOC: OLABP 12:47
PROVIDERS: ATTENDING PHYSICIAN Family Medicine
DX: A41.9 Sepsis, unspecified organism (principal); D84.9 Immunodeficiency, unspecified; N40.0 Benign prostatic hyperplasia without lower urinary tract symptoms; B37.1 Pulmonary candidiasis; D64.9 Anemia, unspecified
CPT/HCPCS: 81003; 81015; 87086